=== PATIENT | male | born 1955 | race African-American/Black ===

== ENCOUNTER 2016-12-26 09:44 | Inpatient (IN) | payer OTHER ==
[~2016-12-26] VITALS: Ht 177.8 cm; Wt 118.1 kg
[~2016-12-26 09:44] MED LIST: CYCL5TAB PO; HYDR-3533 PO; carvedilol; lasix; potassium
[2016-12-26 09:45] VITALS: BP 128/87; PULSE 104; RESP 15; TEMP 97.8; O2SAT 97
[2016-12-26] MEDS ORDERED: SODIUM CHLORIDE 0.9% FLUSH 5 ML FLUSH IVF PRN ×2 (10:15→11:45)
[2016-12-26 10:44] LABS: AUTOMATED NEUTROPHIL # 5.7 TH/MM3 (1.8-7.7); BASOPHIL # 0.1 TH/MM3 (0-0.2); EOSINOPHIL # 0.2 TH/MM3 (0-0.4); HEMATOCRIT 39.1 % (39.0-51.0); HEMO FLAGS DIFF FINAL; LYMPH % 15.9 % (9.0-44.0); LYMPHOCYTE # 1.2 TH/MM3 (1.0-4.8); MEAN CELL VOLUME 90.6 FL (80.0-100.0); MEAN CORPUSCULAR HEMOGLOBIN 30.7 PG (27.0-34.0); MEAN CORPUSCULAR HGB CONC 33.9 % (32.0-36.0); MONO % 7.3 % (0.0-8.0); NEUT % 72.8 % (16.0-70.0); PLATELET COUNT 148 TH/MM3 (150-450); RED BLOOD COUNT 4.31 MIL/MM3 (4.50-5.90); RED CELL DISTRIBUTION WIDTH 12.8 % (11.6-17.2); WHITE BLOOD COUNT 7.8 TH/MM3 (4.0-11.0)
[2016-12-26 10:54] LABS: APTT (PATIENT) 26.7 SEC (24.3-30.1); PROTHROMBIN TIME - PATIENT 11.4 SEC (9.8-11.6)
[2016-12-26 10:57] LABS: BICARBONATE 30.4 MEQ/L (21.0-32.0); POTASSIUM 4.4 MEQ/L (3.5-5.1)
[2016-12-26] MEDS ORDERED: ENOXAPARIN SODIUM 80 MG/0.8 ML SYRINGE SQ ONE (11:00)
--- NOTE | 2016-12-26 11:00 | PD ---
HPI Chief Complaint: Musculoskeletal Complaint Time Seen by Provider: 10:00 Travel History International Travel<30 days: No Contact w/Intl Traveler<30days: No Traveled to known affect area: No History of Present Illness HPI Patient is a 61-year-old male with history of hypertension and chronic venous stasis who presents the emergency department from the OR for DVT. Patient states that over the course the last 2-3 weeks he has had increasing swelling from his baseline in the left lower extremity. He also notes pain primarily in the calf. Patient was seen at the OR today where he had a duplex ultrasound of the left lower extremity. This showed a partial thrombosis from the mid superficial femoral to the posterior tibial vein. No evidence of Cannon cyst. Given the extent of the DVT patient was sent here for further evaluation. He is not currently anticoagulated and denies any known history of DVT or PE. No chest pain, shortness of breath. PFSH Past Medical History Hepatitis: Yes Hypertension: Yes Social History Alcohol Use: No Tobacco Use: No Substance Use: No Allergies-Medications (Allergen,Severity, Reaction): Coded Allergies: No Known Allergies (Unverified , 07/25/15) Reported Meds & Prescriptions Reported Meds & Active Scripts Active Lortab 5 mg/325 mg (Hydrocodone/Acetaminophen 5 mg/325 mg) 1 Tab 1 Tab PO Q6H PRN Flexeril (Cyclobenzaprine HCl) 5 Mg Tab 5 Mg PO TID PRN Do not drive while on medication. Do not take with alcohol. Reported [potassium] [lasix] [carvedilol] Review of Systems Except as stated in HPI: all other systems reviewed are Neg Physical Exam Narrative GENERAL: Pleasant male in no acute distress SKIN: Warm and dry. HEAD: Normocephalic. EYES: No scleral icterus. No injection or drainage. ENT: Mucous membranes pink and moist. NECK: Supple CARDIOVASCULAR: Regular rate and rhythm. RESPIRATORY: No accessory muscle use. MUSCULOSKELETAL: Bilateral lower extremity with chronic venous stasis changes. Left lower extremity with 2-3+ edema versus 1-2+ edema in the right lower extremity. No palpable cords. Patient has tenderness to palpation of the left calf. No palpable fullness in the popliteal fossa. 5 out of 5 strength. Distal pulses intact. NEUROLOGICAL: Awake and alert. Normal speech. PSYCHIATRIC: Appropriate mood and affect; insight and judgment normal. Data Data Last Documented VS Vital Signs Date Time Temp Pulse Resp B/P Pulse Ox O2 Delivery O2 Flow Rate FiO2 12/26/16 09:45 97.8 104 15 128/87 97 Orders Basic Metabolic Panel (Bmp) (12/26/16 10:06) Complete Blood Count With Diff (12/26/16 10:06) Prothrombin Time / Inr (Pt) (12/26/16 10:06) Act Partial Throm Time (Ptt) (12/26/16 10:06) Ecg Monitoring (12/26/16 10:06) Iv Access Insert/Monitor (12/26/16 10:06) Oximetry (12/26/16 10:06) Sodium Chloride 0.9% Flush (Ns Flush) (12/26/16 10:15) Labs Laboratory Tests Test 12/26/16 10:30 White Blood Count 7.8 TH/MM3 Red Blood Count 4.31 MIL/MM3 Hemoglobin 13.2 GM/DL Hematocrit 39.1 % Mean Corpuscular Volume 90.6 FL Mean Corpuscular Hemoglobin 30.7 PG Mean Corpuscular Hemoglobin 33.9 % Concent Red Cell Distribution Width 12.8 % Platelet Count 148 TH/MM3 Mean Platelet Volume 8.6 FL Neutrophils (%) (Auto) 72.8 % Lymphocytes (%) (Auto) 15.9 % Monocytes (%) (Auto) 7.3 % Eosinophils (%) (Auto) 3.0 % Basophils (%) (Auto) 1.0 % Neutrophils # (Auto) 5.7 TH/MM3 Lymphocytes # (Auto) 1.2 TH/MM3 Monocytes # (Auto) 0.6 TH/MM3 Eosinophils # (Auto) 0.2 TH/MM3 Basophils # (Auto) 0.1 TH/MM3 CBC Comment DIFF FINAL Differential Comment Prothrombin Time 11.4 SEC Prothromb Time International 1.0 RATIO Ratio Activated Partial 26.7 SEC Thromboplast Time MDM Medical Decision Making Medical Screen Exam Complete: Yes Emergency Medical Condition: Yes Medical Record Reviewed: Yes Differential Diagnosis 61-year-old male with history of HTN, venous stasis here with complaint of several weeks of left lower extremity swelling and pain, increased from baseline. Differential includes DVT, cellulitis, venous stasis, CHF. Narrative Course Outside records reviewed. Patient had a duplex ultrasound 12/26/16 at 7:30 AM. Again the should partial thrombosis from the mid superficial femoral to the posterior tibial vein. Given the extent of patient's DVT he is not an appropriate candidate for outpatient management. CBC, BMP, coags were obtained and unremarkable. Patient was placed on Lovenox and will be admitted for further management. Diagnosis Primary Impression: DVT (deep venous thrombosis) Qualified Code: I82.412 - Acute deep vein thrombosis (DVT) of femoral vein of left lower extremity Admitting Information Admitting Physician Requests: Admit Maureen Carrion MD Dec 26, 2016 11:00
[2016-12-26 11:05] VITALS: BP 139/95; PULSE 97; RESP 19; TEMP 98.4; O2SAT 97
--- NOTE | 2016-12-26 11:29 | HHI.HP ---
[facility] Service Family Medicine Primary Care Physician [facility] Admission Diagnosis DVT Diagnoses: Chief Complaint: leg swelling International Travel<30 Days: No Contact w/Intl Traveler<30days: No Known Affected Area: No History of Present Illness 61 y/o -[place] male presents with swelling and pain in his left leg. Has history of chronic stasis that has been going on for several years. States his swelling/pain has worsened in the last few months. Went to [place] this morning for an appointment where an ultrasound was performed that found a thrombosis from mid superficial femoral to posterior tibial vein. No pain on right side. Endorses occasional numbness/tingling. No history of DVT in the past, hasn't been on blood thinners in the past. Denies chest pain, SOB, abdominal pain. ( Darien Luna MD R1) Review of Systems Constitutional: DENIES: Fever, Weight gain, Weight loss, Chills Eyes: DENIES: Blurred vision, Vision loss Ears, nose, mouth, throat: DENIES: Tinnitus, Hearing loss, Nasal discharge, Odynophagia Respiratory: DENIES: Cough, Shortness of breath Cardiovascular: COMPLAINS OF: Lower Extremity Edema, Claudication, DENIES: Chest pain, Palpitations Gastrointestinal: COMPLAINS OF: Constipation, DENIES: Abdominal pain, Diarrhea , Nausea, Vomiting Genitourinary: DENIES: Urinary frequency, Hematuria, Dysuria Musculoskeletal: COMPLAINS OF: Joint pain, Muscle aches Integumentary: DENIES: Abnormal pigmentation Hematologic/lymphatic: DENIES: Bruising, Lymphadenopathy Neurologic: DENIES: Abnormal gait, Headache (Darien Luna MD R1) Past Family Social History Past Medical History HTN Left shoulder arthritis Past Surgical History surgery on left neck Abdominal hernia repair rotator cuff repair right shoulder Reported Medications Reported Meds & Active Scripts Active Lortab 5 mg/325 mg (Hydrocodone/Acetaminophen 5 mg/325 mg) 1 Tab 1 Tab PO Q6H PRN Flexeril (Cyclobenzaprine HCl) 5 Mg Tab 5 Mg PO TID PRN Do not drive while on medication. Do not take with alcohol. Reported Lisinopril 20 Mg Tab 20 Mg PO DAILY Spironolactone 25 Mg Tab 25 Mg PO DAILY Carvedilol 12.5. 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 SKIN: Warm and dry HEAD: Atraumatic. Normocephalic. No temporal or scalp tenderness. EYES: Pupils equal round and reactive. Extraocular motions intact. No scleral icterus. No injection or drainage. ENT: Nose without bleeding, purulent drainage or septal hematoma. Throat without erythema, tonsillar hypertrophy or exudate. Uvula midline. Airway patent. NECK: Trachea midline. No JVD or lymphadenopathy. Supple, nontender, no meningeal signs. CARDIOVASCULAR: Regular rate and rhythm without murmurs, gallops, or rubs. RESPIRATORY: Clear to auscultation. Breath sounds equal bilaterally. No wheezes , rales, or rhonchi. GASTROINTESTINAL: Abdomen soft, non-tender, nondistended. No hepato-splenomegaly , or palpable masses. No guarding. MUSCULOSKELETAL:B/l lower extremities with venous stasis changes. left lower extremity with 2+ edema. Right lower extremity 1+ edema. Distal pulses intact. NEUROLOGICAL: Awake and alert. Cranial nerves II through XII intact. Motor and sensory grossly within normal limits. Five out of 5 muscle strength in all muscle groups. Normal speech. Laboratory Laboratory Tests Test 12/26/16 10:30 White Blood Count 7.8 Red Blood Count 4.31 Hemoglobin 13.2 Hematocrit 39.1 Mean Corpuscular Volume 90.6 Mean Corpuscular Hemoglobin 30.7 Mean Corpuscular Hemoglobin 33.9 Concent Red Cell Distribution Width 12.8 Platelet Count 148 Mean Platelet Volume 8.6 Neutrophils (%) (Auto) 72.8 Lymphocytes (%) (Auto) 15.9 Monocytes (%) (Auto) 7.3 Eosinophils (%) (Auto) 3.0 Basophils (%) (Auto) 1.0 Neutrophils # (Auto) 5.7 Lymphocytes # (Auto) 1.2 Monocytes # (Auto) 0.6 Eosinophils # (Auto) 0.2 Basophils # (Auto) 0.1 CBC Comment DIFF FINAL Differential Comment Prothrombin Time 11.4 Prothromb Time International 1.0 Ratio Activated Partial 26.7 Thromboplast Time Sodium Level 139 Potassium Level 4.4 Chloride Level 104 Carbon Dioxide Level 30.4 Anion Gap 5 Blood Urea Nitrogen 23 Creatinine 1.29 Estimat Glomerular Filtration 68 Rate Random Glucose 123 Calcium Level 9.2 (Darien Luna MD R1) Result Diagram: 12/26/16 1030 12/26/16 1030 Assessment and Plan Assessment and Plan 61 y/o male with history of chronic venous stasis presents after finding thrombosis on ultrasound. Will admit for IV lovenox and bridging to oral anticoagulants. Code Status Full Discussed Condition With Dr. Lin wdw Dr. Patrick (Darien Luna MD R1) Attending Attestation THIS CASE WAS DISCUSSED WITH THE RESIDENT PHYSICIANS. I HAVE REVIEWED THE RECORD AND AGREE WITH THE ABOVE NOTE AND PLAN OF CARE WAS DISCUSSED. I HAVE AUTHORIZED THE ORDER FOR ADMISSION TO AN IN-PATIENT STATUS. (Tahir Patrick MD) Problem List: (1) DVT (deep venous thrombosis) Status: Acute Plan: DVT from ultrasound at [place], showing partial thrombosis from mid superficial femoral to posterior tibial vein. History of chronic venous stasis No history of DVT in the past INR: 1.0 Plan - Therapeutic lovenox 80mg SQ q12H - Start warfarin 5mg daily - PT/INR in AM - Elevate leg - Tylenol pain 1-5 - [place] q4H pain 6-10 - Morphine breakthrough pain (2) Venous stasis of both lower extremities Status: Acute Plan: History of chronic venous stasis See plan for above (3) HTN (hypertension) Status: Acute Plan: BP 128/87 on admission Continue home meds - Coreg 6.25 BID - Lisinopril 20mg daily - Spironolactone 25mg daily - Lasix 40mg BID w/ KCl 20 q12H (4) FEN Status: Acute Plan: Fluids: none, tolerating PO Electrolytes: wnl. continue to monit Nutrition: regular diet DVT ppx: therapeutic lovenox (Darien Luna MD R1) Physician Certification 2 Midnight Certification Type: Admission for Inpatient Services Order for Inpatient Services The services are ordered in accordance with Medicare regulations or non- Medicare payer requirements, as applicable. In the case of services not specified as inpatient-only, they are appropriately provided as inpatient services in accordance with the 2-midnight benchmark. Estimated LOS (days): 3 days is the estimated time the patient will need to remain in the hospital, assuming treatment plan goals are met and no additional complications. Post-Hospital Plan: Home (Darien Luna MD R1) Problem Qualifiers (1) DVT (deep venous thrombosis): Qualified Code: I82.412 - Acute deep vein thrombosis (DVT) of femoral vein of left lower extremity (2) HTN (hypertension): Qualified Code: I10 - Essential hypertension Darien Luna MD R1 Dec 26, 2016 11:29 Tahir Patrick MD Dec 26, 2016 19:40
[2016-12-26] MEDS ORDERED: ONDANSETRON HCL 4 MG/2 ML VIAL IV PRN (11:45)
[2016-12-26] MEDS ORDERED: ACETAMINOPHEN/HYDROcodone 325 MG/5 MG TAB PO PRN (11:45)
[2016-12-26] MEDS ORDERED: ACETAMINOPHEN 325 MG TAB PO PRN (11:45)
[2016-12-26] MEDS ORDERED: MORPHINE SULFATE 4 MG/ML INJ IV PRN (11:45)
[2016-12-26] MEDS ORDERED: SPIR25TA PO (13:01)
[2016-12-26] MEDS ORDERED: LISI-515 PO (13:02)
[2016-12-26 13:06] VITALS: BP 137/82; PULSE 97; RESP 19; O2SAT 97
[2016-12-26 14:42] VITALS: BP 150/83; PULSE 112; RESP 18; TEMP 96.4; O2SAT 95
[2016-12-26] MEDS: WARFARIN SOD 5 MG TAB PO SCH (15:40)
[2016-12-26] MEDS ORDERED: ENALAPRILAT 1.25 MG/ML VIAL IV PRN (16:45)
[2016-12-26] MEDS: FUROSEMIDE 40 MG TAB PO SCH (17:03)
[2016-12-26 18:28] VITALS: O2SAT 95
[2016-12-26 20:05] VITALS: BP 139/79; PULSE 108; RESP 16; TEMP 96.3; O2SAT 98
[2016-12-26] MEDS: CARVEDILOL 6.25 MG TAB PO SCH (22:26)
[2016-12-26] MEDS: ENOXAPARIN SODIUM 100 MG/ML SYRINGE SQ SCH (22:26)
[2016-12-26] MEDS: POTASSIUM CHLORIDE 20 MEQ CONTROLLED RELEASE TAB PO SCH (22:26)
[2016-12-26] MEDS: SODIUM CHLORIDE 0.9% FLUSH 5 ML FLUSH IVF SCH (22:27)
[2016-12-27] VITALS (7 sets, daily range): BP systolic 102–152; BP diastolic 64–90; PULSE 80–108; RESP 16–18; TEMP 96.8–98; O2SAT 97–100
[2016-12-27 06:08] LABS: AUTOMATED NEUTROPHIL # 4.8 TH/MM3 (1.8-7.7); BASOPHIL # 0.1 TH/MM3 (0-0.2); BASOPHIL % 0.7 % (0.0-2.0); EOSINOPHIL # 0.2 TH/MM3 (0-0.4); EOSINOPHIL % 3.1 % (0.0-4.0); HEMO FLAGS DIFF FINAL; LYMPH % 25.1 % (9.0-44.0); LYMPHOCYTE # 1.8 TH/MM3 (1.0-4.8); MEAN CELL VOLUME 90.3 FL (80.0-100.0); MEAN CORPUSCULAR HEMOGLOBIN 31.4 PG (27.0-34.0); MEAN CORPUSCULAR HGB CONC 34.8 % (32.0-36.0); MONO % 6.3 % (0.0-8.0); NEUT % 64.8 % (16.0-70.0); PLATELET COUNT 153 TH/MM3 (150-450); RED BLOOD COUNT 3.99 MIL/MM3 (4.50-5.90); RED CELL DISTRIBUTION WIDTH 12.6 % (11.6-17.2); WHITE BLOOD COUNT 7.4 TH/MM3 (4.0-11.0)
[2016-12-27 06:18] LABS: PROTHROMBIN TIME - PATIENT 11.6 SEC (9.8-11.6)
[2016-12-27 06:30] LABS: BICARBONATE 27.2 MEQ/L (21.0-32.0); POTASSIUM 3.7 MEQ/L (3.5-5.1)
--- NOTE | 2016-12-27 08:55 | HHI.FPPN ---
Subjective Remarks FM Attending Note: Patient seen and examined. S: Chart and all resident physician notes reviewed. In summary this is a 61 year old male who was admitted with an admission diagnosis of DVT. No previous history of VTE. This patient has a history of chronic venous insufficiency of his lower extremities with chronic edema that is been slightly more in the left side than the right. [facility] in [place]. He reports that he is given prescriptions at the [facility] and fills these at his pharmacy. No chest pain or shortness of breath has been noted. No history of any bleeding disorder or clotting disorders. Objective Vitals Vital Signs Date Time Temp Pulse Resp B/P Pulse Ox O2 Delivery O2 Flow Rate FiO2 12/27/16 08:00 97.5 80 17 124/77 99 12/27/16 04:00 97.0 85 16 115/71 97 12/27/16 00:00 96.8 108 18 145/90 98 12/26/16 20:05 96.3 108 16 139/79 98 12/26/16 18:28 95 21 12/26/16 14:42 96.4 112 18 150/83 95 12/26/16 13:06 97 19 137/82 97 Room Air 12/26/16 11:05 98.4 97 19 139/95 97 Room Air 12/26/16 09:45 97.8 104 15 128/87 97 I/O 12/26/16 12/26/16 12/26/16 12/27/16 12/27/16 12/27/16 07:00 15:00 23:00 07:00 15:00 23:00 Intake Total 480 ml 240 ml Balance 480 ml 240 ml Intake Oral 480 ml 240 ml # Voids 1 3 2 # Bowel Movements 0 0 Result Diagram: 12/27/16 0537 12/27/16 0537 Other Results Item Value Date Time Prothrombin Time 11.4 SEC 12/26/16 1030 Prothromb Time International Ratio 1.0 RATIO 12/26/16 1030 Activated Partial Thromboplast Time 26.7 SEC 12/26/16 1030 Imaging Venous ultrasound done at the [facility] reportedly showed a DVT in his left leg. Objective Remarks O. CONSTITUTIONAL/GEN: normally nourished, in NAD. EYES: conjunctiva normal, PERRLA, EOMI. LUNGS: clear A-P, respiratory effort is normal. CARDIOVASCULAR: RR without murmur or gallop. 1-2+ edema of the left lower extremity, trace to 1+ edema of the right lower extremity GI/ABD: soft without masses, without organomegaly. NEURO: No focal deficits. SKIN: color normal, no rashes noted other than some very mild venous stasis changes of the lower extremities. HEME/LYMPH: no bruising or petechia. MUSC: back is normal in appearance. Extremities are normal in appearance other than edema in stasis dermatitis noted. PSYCH/MENTAL STATUS: Alert and oriented x 3. A/P Assessment and Plan 61 y/o male with history of chronic venous stasis presents after finding thrombosis on ultrasound. Will admit for IV lovenox and bridging to oral anticoagulants. Problem List: (1) DVT (deep venous thrombosis) Status: Acute Plan: DVT from ultrasound at [place], showing partial thrombosis from mid superficial femoral to posterior tibial vein. History of chronic venous stasis No history of DVT in the past INR: 1.0 Plan - Therapeutic lovenox 80mg SQ q12H - Start warfarin 5mg daily - PT/INR in AM - Elevate leg - Tylenol pain 1-5 - [place] q4H pain 6-10 - Morphine breakthrough pain 12/27/16. This patient has a DVT of his left lower extremity. Other than his chronic venous insufficiency and edema this appears to be unprovoked. He will need to have anticoagulation for at least 6 months. We discussed the availability of several to with the sample case porter but would only be able to get a 5 day supply and the cost otherwise is prohibitive. For now the patient is being bridged from Lovenox to Coumadin. We'll continue the same with the possibility of bridging him with the short supply of Xarelto once he is closer to being at a therapeutic level with his INR and if timely follow-up can be arranged through the [facility]. (2) Venous stasis of both lower extremities Status: Acute Plan: History of chronic venous stasis See plan for above (3) HTN (hypertension) Status: Acute Plan: BP 128/87 on admission Continue home meds - Coreg 6.25 BID - Lisinopril 20mg daily - Spironolactone 25mg daily - Lasix 40mg BID w/ KCl 20 q12H (4) FEN Status: Acute Plan: Fluids: none, tolerating PO Electrolytes: wnl. continue to monit Nutrition: regular diet DVT ppx: therapeutic lovenox Problem Qualifiers (1) DVT (deep venous thrombosis): Qualified Code: I82.412 - Acute deep vein thrombosis (DVT) of femoral vein of left lower extremity (2) HTN (hypertension): Qualified Code: I10 - Essential hypertension Tahir Patrick MD Dec 27, 2016 08:55
[2016-12-27] MEDS: SPIRONOLACTONE 25 MG TAB PO SCH (09:00)
[2016-12-27] MEDS: POTASSIUM CHLORIDE 20 MEQ CONTROLLED RELEASE TAB PO SCH ×2 (09:00→21:04)
[2016-12-27] MEDS: LISINOPRIL 20 MG TAB PO SCH (09:36)
[2016-12-27] MEDS: CARVEDILOL 6.25 MG TAB PO SCH ×2 (09:36→21:04)
[2016-12-27] MEDS: FUROSEMIDE 40 MG TAB PO SCH ×2 (09:36→16:57)
[2016-12-27] MEDS: SODIUM CHLORIDE 0.9% FLUSH 5 ML FLUSH IVF SCH ×2 (09:37→21:04)
[2016-12-27] MEDS: ENOXAPARIN SODIUM 100 MG/ML SYRINGE SQ SCH ×2 (10:29→22:34)
[2016-12-27] MEDS: WARFARIN SOD 5 MG TAB PO SCH (14:59)
[2016-12-27] MEDS ORDERED: WARFARIN SOD 5 MG TAB PO ONE (16:00)
[2016-12-28 00:08] VITALS: BP 127/71; PULSE 86; RESP 17; TEMP 97.1; O2SAT 98
[2016-12-28 07:39] LABS: INTERNATIONAL NORMALIZED RATIO 1.1 RATIO; PROTHROMBIN TIME - PATIENT 11.8 SEC (9.8-11.6)
[2016-12-28 07:42] LABS: HEMATOCRIT 38.7 % (39.0-51.0); MEAN CELL VOLUME 90.4 FL (80.0-100.0); MEAN CORPUSCULAR HGB CONC 34.3 % (32.0-36.0); PLATELET COUNT 169 TH/MM3 (150-450); RED BLOOD COUNT 4.29 MIL/MM3 (4.50-5.90); RED CELL DISTRIBUTION WIDTH 12.8 % (11.6-17.2); REVIEW FLAG FINAL; WHITE BLOOD COUNT 7.9 TH/MM3 (4.0-11.0)
[2016-12-28 08:00] VITALS: BP 132/83; PULSE 90; RESP 18; TEMP 96; O2SAT 98
[2016-12-28 08:04] LABS: BICARBONATE 29.2 MEQ/L (21.0-32.0)
[2016-12-28] MEDS: SODIUM CHLORIDE 0.9% FLUSH 5 ML FLUSH IVF SCH ×2 (08:58→21:26)
[2016-12-28] MEDS: FUROSEMIDE 40 MG TAB PO SCH ×2 (08:59→17:56)
[2016-12-28] MEDS: LISINOPRIL 20 MG TAB PO SCH (08:59)
[2016-12-28] MEDS: CARVEDILOL 6.25 MG TAB PO SCH ×2 (08:59→21:20)
[2016-12-28] MEDS: SPIRONOLACTONE 25 MG TAB PO SCH (08:59)
[2016-12-28] MEDS: POTASSIUM CHLORIDE 20 MEQ CONTROLLED RELEASE TAB PO SCH ×2 (08:59→21:20)
--- NOTE | 2016-12-28 10:09 | HHI.FPPN ---
Subjective Remarks Patient seen and examined this morning. No acute events overnight. Denies any complaints/concerns. Denies chest pain, SOB, abdominal pain. Is keeping left leg elevated, while sitting in chair. Has been up walking around without difficulty. (Darien Luna MD R1) Objective Vitals Vital Signs Date Time Temp Pulse Resp B/P Pulse Ox O2 Delivery O2 Flow Rate FiO2 12/28/16 08:00 96.0 90 18 132/83 98 12/28/16 00:08 97.1 86 17 127/71 98 12/27/16 19:00 98.0 98 16 152/77 98 12/27/16 16:00 97.1 86 17 117/81 100 12/27/16 12:00 96.8 89 17 135/74 97 I/O 12/27/16 12/27/16 12/27/16 12/28/16 12/28/16 12/28/16 07:00 15:00 23:00 07:00 15:00 23:00 Intake Total 240 ml 480 ml 480 ml 240 ml Balance 240 ml 480 ml 480 ml 240 ml Intake Oral 240 ml 480 ml 480 ml 240 ml # Voids 2 3 3 2 # Bowel Movements 0 0 0 0 (Darien Luna MD R1) Result Diagram: 12/28/16 0709 12/28/16 0709 Objective Remarks O. CONSTITUTIONAL/GEN: normally nourished, in NAD. EYES: conjunctiva normal, PERRLA, EOMI. LUNGS: clear A-P, respiratory effort is normal. CARDIOVASCULAR: RR without murmur or gallop. 1-2+ edema of the left lower extremity, trace to 1+ edema of the right lower extremity GI/ABD: soft without masses, without organomegaly. NEURO: No focal deficits. SKIN: color normal, no rashes noted other than some very mild venous stasis changes of the lower extremities. HEME/LYMPH: no bruising or petechia. MUSC: back is normal in appearance. Extremities are normal in appearance other than edema in stasis dermatitis noted. PSYCH/MENTAL STATUS: Alert and oriented x 3. (Darien Luna MD R1) A/P Assessment and Plan 61 y/o male with history of chronic venous stasis presents after finding thrombosis on ultrasound. On IV lovenox and bridging with warfarin Discharge Planning When INR is in therapeutic range (Darien Luna MD R1) Attending Attestation Patient seen and examined. Case reviewed and discussed with the resident team. Agree with plan of care as discussed with me and documented in the resident note. (Tahir Patrick MD) Problem List: (1) DVT (deep venous thrombosis) Status: Acute Plan: DVT from ultrasound at [place], showing partial thrombosis from mid superficial femoral to posterior tibial vein. History of chronic venous stasis No history of DVT in the past INR: 1.1 today Will need anticoagulation for at least 6 months Plan - Therapeutic lovenox 80mg SQ q12H - Increase warfarin to 6.5mg daily - PT/INR daily - Elevate leg - Tylenol pain 1-5 - [place] q4H pain 6-10 - Morphine breakthrough pain (2) Venous stasis of both lower extremities Status: Acute Plan: History of chronic venous stasis See plan for above (3) HTN (hypertension) Status: Acute Plan: BP 128/87 on admission Continue home meds - Coreg 6.25 BID - Lisinopril 20mg daily (4) CHF (congestive heart failure) Status: Acute Plan: Continue home meds BNP 10 - Spironolactone 25mg daily - Lasix 40mg BID w/ KCl 20 q12H (5) FEN Status: Acute Plan: Fluids: none, tolerating PO Electrolytes: wnl. continue to monit Nutrition: regular diet DVT ppx: therapeutic lovenox (Darien Luna MD R1) Problem Qualifiers (1) DVT (deep venous thrombosis): Qualified Code: I82.412 - Acute deep vein thrombosis (DVT) of femoral vein of left lower extremity (2) HTN (hypertension): Qualified Code: I10 - Essential hypertension (3) CHF (congestive heart failure): Qualified Code: I50.9 - Chronic congestive heart failure, unspecified congestive heart failure type Darien Luna MD R1 Dec 28, 2016 10:09 Tahir Patrick MD Dec 28, 2016 16:17
[2016-12-28] MEDS: ENOXAPARIN SODIUM 100 MG/ML SYRINGE SQ SCH ×2 (11:08→23:06)
[2016-12-28 11:42] VITALS: BP 118/61; PULSE 88; RESP 18; TEMP 96.6; O2SAT 99
[2016-12-28 15:30] VITALS: BP 124/80; PULSE 88; RESP 18; TEMP 96.8; O2SAT 99
[2016-12-28] MEDS: WARFARIN SOD 2.5 MG TAB PO SCH (15:41)
[2016-12-28] MEDS: WARFARIN SOD 5 MG TAB PO SCH (15:41)
[2016-12-28] MEDS ORDERED: WARFARIN SOD 4 MG TAB PO SCH (16:00)
[2016-12-28 19:17] VITALS: BP 117/79; PULSE 93; RESP 18; TEMP 97.5; O2SAT 100
[2016-12-28] MEDS: DOCUSATE SODIUM 100 MG CAP PO PRN (21:20)
[2016-12-28 23:20] VITALS: BP 117/76; PULSE 87; RESP 17; TEMP 97; O2SAT 98
[2016-12-29] VITALS (7 sets, daily range): BP systolic 100–143; BP diastolic 62–85; PULSE 83–98; RESP 16–18; TEMP 96.4–98; O2SAT 97–99
[2016-12-29 05:18] LABS: INTERNATIONAL NORMALIZED RATIO 1.2 RATIO; PROTHROMBIN TIME - PATIENT 13.1 SEC (9.8-11.6)
--- NOTE | 2016-12-29 08:24 | HHI.FPPN ---
Subjective Remarks Patient seen and examined this morning. Denies any complaints/concerns. Is up moving around. Is wondering about when he can go home. State swelling in his left leg has gone down a bit. Denies any fever/chills, n/v, chest pain, SOB, abdominal pain, leg pain. (Darien Luna MD R1) Objective Vitals Vital Signs Date Time Temp Pulse Resp B/P Pulse Ox O2 Delivery O2 Flow Rate FiO2 12/29/16 03:30 98.0 89 17 143/85 99 12/28/16 23:20 97.0 87 17 117/76 98 12/28/16 19:17 97.5 93 18 117/79 100 12/28/16 15:30 96.8 88 18 124/80 99 12/28/16 11:42 96.6 88 18 118/61 99 I/O 12/28/16 12/28/16 12/28/16 12/29/16 12/29/16 12/29/16 07:00 15:00 23:00 07:00 15:00 23:00 Intake Total 240 ml 960 ml 960 ml 480 ml Balance 240 ml 960 ml 960 ml 480 ml Intake Oral 240 ml 960 ml 960 ml 480 ml # Voids 2 3 3 2 # Bowel Movements 0 0 0 0 (Darien Luna MD R1) Result Diagram: 12/28/16 0709 12/28/16 0709 Objective Remarks O. CONSTITUTIONAL/GEN: normally nourished, in NAD. EYES: conjunctiva normal, PERRLA, EOMI. LUNGS: clear A-P, respiratory effort is normal. CARDIOVASCULAR: RR without murmur or gallop. 1-2+ edema of the left lower extremity, improving; trace to 1+ edema of the right lower extremity GI/ABD: soft without masses, without organomegaly. NEURO: No focal deficits. SKIN: color normal, no rashes noted other than some very mild venous stasis changes of the lower extremities. PSYCH/MENTAL STATUS: Alert and oriented x 3. (Darien Luna MD R1) A/P Assessment and Plan 61 y/o male with history of chronic venous stasis presents after finding thrombosis on ultrasound. On IV lovenox and bridging with warfarin Discharge Planning When INR is in therapeutic range (Darien Luna MD R1) Attending Attestation Case reviewed and discussed with the resident team. Agree with plan of care as discussed with me and documented in the resident note. (Tahir Patrick MD) Problem List: (1) DVT (deep venous thrombosis) Status: Acute Plan: DVT from ultrasound at [place], showing partial thrombosis from mid superficial femoral to posterior tibial vein. History of chronic venous stasis No history of DVT in the past INR: 1.2 today Will need anticoagulation for at least 6 months Plan - Therapeutic lovenox 80mg SQ q12H - On warfarin 7.5mg daily - PT/INR daily - Elevate leg - Tylenol pain 1-5 - [place] q4H pain 6-10 - Morphine breakthrough pain (2) Venous stasis of both lower extremities Status: Acute Plan: History of chronic venous stasis See plan for above (3) HTN (hypertension) Status: Acute Plan: BP 128/87 on admission Continue home meds - Coreg 6.25 BID - Lisinopril 20mg daily (4) CHF (congestive heart failure) Status: Acute Plan: Continue home meds BNP 10 - Spironolactone 25mg daily - Lasix 40mg BID w/ KCl 20 q12H (5) FEN Status: Acute Plan: Fluids: none, tolerating PO Electrolytes: wnl. continue to monit Nutrition: regular diet DVT ppx: therapeutic lovenox (Darien Luna MD R1) Problem Qualifiers (1) DVT (deep venous thrombosis): Qualified Code: I82.412 - Acute deep vein thrombosis (DVT) of femoral vein of left lower extremity (2) HTN (hypertension): Qualified Code: I10 - Essential hypertension (3) CHF (congestive heart failure): Qualified Code: I50.9 - Chronic congestive heart failure, unspecified congestive heart failure type Darien Luna MD R1 Dec 29, 2016 08:24 Tahir Patrick MD Dec 30, 2016 09:26
[2016-12-29] MEDS: POTASSIUM CHLORIDE 20 MEQ CONTROLLED RELEASE TAB PO SCH ×2 (08:29→21:14)
[2016-12-29] MEDS: LISINOPRIL 20 MG TAB PO SCH (08:29)
[2016-12-29] MEDS: SPIRONOLACTONE 25 MG TAB PO SCH (08:29)
[2016-12-29] MEDS: SODIUM CHLORIDE 0.9% FLUSH 5 ML FLUSH IVF SCH ×2 (08:29→21:15)
[2016-12-29] MEDS: FUROSEMIDE 40 MG TAB PO SCH ×2 (08:29→18:51)
[2016-12-29] MEDS: CARVEDILOL 6.25 MG TAB PO SCH ×2 (08:29→21:14)
[2016-12-29] MEDS: ENOXAPARIN SODIUM 100 MG/ML SYRINGE SQ SCH ×2 (11:36→21:14)
[2016-12-29] MEDS ORDERED: WARFARIN SOD 2.5 MG TAB PO ONE (16:00)
[2016-12-29] MEDS: WARFARIN SOD 5 MG TAB PO SCH (16:39)
[2016-12-29] MEDS: WARFARIN SOD 2.5 MG TAB PO SCH (16:39)
[2016-12-29] MEDS: DOCUSATE SODIUM 100 MG CAP PO PRN (21:15)
[2016-12-30 04:20] VITALS: BP 120/65; PULSE 82; RESP 16; TEMP 96.2; O2SAT 98
[2016-12-30 05:59] LABS: INTERNATIONAL NORMALIZED RATIO 1.3 RATIO; PROTHROMBIN TIME - PATIENT 14.9 SEC (9.8-11.6)
[2016-12-30] MEDS ORDERED: WARFARIN SOD 2.5 MG TAB PO SCH (07:15)
--- NOTE | 2016-12-30 07:23 | HHI.FPPN ---
Subjective Remarks Patient seen and examined this morning. No acute events overnight. Denies any complaints/concerns this morning. Is wanting to go home and is willing to take the shots of lovenox to bridge him over. Denies any fever/chills, n/v, chest pain, SOB, abdominal pain, leg pain. (Darien Luna MD R1) Objective Vitals Vital Signs Date Time Temp Pulse Resp B/P Pulse Ox O2 Delivery O2 Flow Rate FiO2 12/30/16 04:20 96.2 82 16 120/65 98 12/29/16 23:10 96.4 89 17 100/62 97 12/29/16 21:12 98 12/29/16 20:25 97.7 88 16 131/81 98 12/29/16 16:00 96.5 91 18 121/67 98 12/29/16 12:00 97.2 86 18 124/77 99 12/29/16 08:00 96.6 83 18 124/77 98 I/O 12/29/16 12/29/16 12/29/16 12/30/16 12/30/16 12/30/16 07:00 15:00 23:00 07:00 15:00 23:00 Intake Total 480 ml 960 ml 600 ml Balance 480 ml 960 ml 600 ml Intake Oral 480 ml 960 ml 600 ml # Voids 2 5 3 # Bowel Movements 0 0 0 (Darien Luna MD R1) Result Diagram: 12/28/16 0709 12/28/16 0709 Objective Remarks O. CONSTITUTIONAL/GEN: normally nourished, in NAD, laying comfortably in bed EYES: conjunctiva normal, PERRLA, EOMI. LUNGS: clear A-P, respiratory effort is normal. CARDIOVASCULAR: RR without murmur or gallop. 1+ edema of the left lower extremity, improving; trace to 1+ edema of the right lower extremity; venous stasis dermatitis changes present bilaterally GI/ABD: soft without masses, without organomegaly. NEURO: No focal deficits. SKIN: color normal, no rashes noted other than some very mild venous stasis changes of the lower extremities. PSYCH/MENTAL STATUS: Alert and oriented x 3. (Darien Luna MD R1) A/P Assessment and Plan 61 y/o male with history of chronic venous stasis presents after finding thrombosis on ultrasound. On IV lovenox and bridging with warfarin Discharge Planning When INR is in therapeutic range, may send home with lovenox bridge and outpatient INR (Darien Luna MD R1) Attending Attestation Patient seen and examined. Case reviewed and discussed with the resident team. Agree with plan of care as discussed with me and documented in the resident note. (Tahir Patrick MD) Problem List: (1) DVT (deep venous thrombosis) Status: Acute Plan: DVT from ultrasound at [facility], showing partial thrombosis from mid superficial femoral to posterior tibial vein. History of chronic venous stasis No history of DVT in the past INR: 1.3 today Will need anticoagulation for at least 6 months Plan - Therapeutic lovenox 80mg SQ q12H - Increase warfarin to 10mg daily - PT/INR daily - Elevate leg - Tylenol pain 1-5 - [place] q4H pain 6-10 - Morphine breakthrough pain (2) Venous stasis of both lower extremities Status: Acute Plan: History of chronic venous stasis See plan for above (3) HTN (hypertension) Status: Acute Plan: BP 128/87 on admission Continue home meds - Coreg 6.25 BID - Lisinopril 20mg daily (4) CHF (congestive heart failure) Status: Acute Plan: Continue home meds BNP 10 - Spironolactone 25mg daily - Lasix 40mg BID w/ KCl 20 q12H (5) FEN Status: Acute Plan: Fluids: none, tolerating PO Electrolytes: wnl. continue to monit Nutrition: regular diet DVT ppx: therapeutic lovenox (Darien Luna MD R1) Problem Qualifiers (1) DVT (deep venous thrombosis): Qualified Code: I82.412 - Acute deep vein thrombosis (DVT) of femoral vein of left lower extremity (2) HTN (hypertension): Qualified Code: I10 - Essential hypertension (3) CHF (congestive heart failure): Qualified Code: I50.9 - Chronic congestive heart failure, unspecified congestive heart failure type Darien Luna MD R1 Dec 30, 2016 07:23 Tahir Patrick MD Dec 30, 2016 14:58
[2016-12-30 08:00] VITALS: BP 144/88; PULSE 71; RESP 18; TEMP 96; O2SAT 99
[2016-12-30] MEDS: CARVEDILOL 6.25 MG TAB PO SCH (08:53)
[2016-12-30] MEDS: POTASSIUM CHLORIDE 20 MEQ CONTROLLED RELEASE TAB PO SCH (08:53)
[2016-12-30] MEDS: LISINOPRIL 20 MG TAB PO SCH (08:53)
[2016-12-30] MEDS: SPIRONOLACTONE 25 MG TAB PO SCH (08:53)
[2016-12-30] MEDS: SODIUM CHLORIDE 0.9% FLUSH 5 ML FLUSH IVF SCH (08:54)
[2016-12-30] MEDS: FUROSEMIDE 40 MG TAB PO SCH (08:54)
[2016-12-30] MEDS ORDERED: WARF-23 PO ×2 (10:28→12:23)
--- NOTE | 2016-12-30 10:29 | HHI.DCPOC ---
Discharge Care Plan Diagnosis: (1) Venous stasis of both lower extremities (2) HTN (hypertension) (3) DVT (deep venous thrombosis) (4) CHF (congestive heart failure) Goals to Promote Your Health * To prevent worsening of your condition and complications * To maintain your health at the optimal level Directions to Meet Your Goals Take your medications as prescribed Follow your dietary instruction Follow activity as directed Keep your appointments as scheduled Take your immunizations and boosters as scheduled If your symptoms worsen call your PCP, if no PCP go to Urgent Care Center or Emergency Room Smoking is Dangerous to Your Health. Avoid second hand smoke Call the 24-hour hour crisis hotline for domestic abuse at Darien Luna MD R1 Dec 30, 2016 10:29
[2016-12-30] MEDS ORDERED: XARE15TA PO (10:34)
--- NOTE | 2016-12-30 10:39 | HHI.DS ---
Discharge Summary Admission Date Dec 26, 2016 at 11:08 Discharge Date: Dec 30, 2016 Admitting Diagnosis DVT (1) DVT (deep venous thrombosis) Diagnosis: Principal Plan: DVT from ultrasound at [facility], showing partial thrombosis from mid superficial femoral to posterior tibial vein. History of chronic venous stasis No history of DVT in the past INR: 1.3 today Will need anticoagulation for at least 6 months Plan - Therapeutic lovenox 80mg SQ q12H - Increase warfarin to 10mg daily - PT/INR daily - Elevate leg - Tylenol pain 1-5 - [place] q4H pain 6-10 - Morphine breakthrough pain (2) Venous stasis of both lower extremities Diagnosis: Secondary Plan: History of chronic venous stasis See plan for above (3) HTN (hypertension) Diagnosis: Secondary Plan: BP 128/87 on admission Continue home meds - Coreg 6.25 BID - Lisinopril 20mg daily (4) CHF (congestive heart failure) Diagnosis: Secondary Plan: Continue home meds BNP 10 - Spironolactone 25mg daily - Lasix 40mg BID w/ KCl 20 q12H (5) FEN Diagnosis: Secondary Plan: Fluids: none, tolerating PO Electrolytes: wnl. continue to monit Nutrition: regular diet DVT ppx: therapeutic lovenox Brief History 61 y/o -[place] male presents with swelling and pain in his left leg. Has history of chronic stasis that has been going on for several years. States his swelling/pain has worsened in the last few months. Went to [place] this morning for an appointment where an ultrasound was performed that found a thrombosis from mid superficial femoral to posterior tibial vein. No pain on right side. Endorses occasional numbness/tingling. No history of DVT in the past, hasn't been on blood thinners in the past. Denies chest pain, SOB, abdominal pain. CBC/BMP: 12/28/16 0709 12/28/16 0709 Significant Findings Laboratory Tests Test 12/28/16 12/29/16 12/30/16 07:09 04:37 05:20 Red Blood Count 4.29 MIL/MM3 (4.50-5.90) Hematocrit 38.7 % (39.0-51.0) Prothrombin Time 11.8 SEC 13.1 SEC 14.9 SEC (9.8-11.6) (9.8-11.6) (9.8-11.6) Random Glucose 115 MG/DL (74-106) PE at Discharge O. CONSTITUTIONAL/GEN: normally nourished, in NAD, laying comfortably in bed EYES: conjunctiva normal, PERRLA, EOMI. LUNGS: clear A-P, respiratory effort is normal. CARDIOVASCULAR: RR without murmur or gallop. 1+ edema of the left lower extremity, improving; trace to 1+ edema of the right lower extremity; venous stasis dermatitis changes present bilaterally GI/ABD: soft without masses, without organomegaly. NEURO: No focal deficits. SKIN: color normal, no rashes noted other than some very mild venous stasis changes of the lower extremities. PSYCH/MENTAL STATUS: Alert and oriented x 3. Hospital Course 61 y/o male with history of HTN, chronic venous stasis presents after a DVT was found at the [facility]. He was sent to the ED from the [facility] and admitted for anticoagulation. He was started on therapeutic lovenox with bridging to warfarin. INR is increasing to 1.3. Case management was able to provide patient with 30 days of Xarelto. Patient will take xarelto to bridge with warfarin. Outpatient INR scheduled for Monday after discharge and warfarin dose will be adjusted accordingly. He will also have follow-up with [facility] for INR monitoring and further dosage adjustment. Pt Condition on Discharge: Stable Discharge Disposition: Discharge Home Discharge Instructions DIET: Follow Instructions for: Heart Healthy Diet Activities you can perform: Regular-No Restrictions Follow up Referrals: PCP Follow-up - 1 Week New Orders: PT/INR - 01/02/17 New Medications: Rivaroxaban (Xarelto) 15 Mg Tab 15 MG PO DAILY Blood Clot Prevention #30 Ref 0 TAB Warfarin (Warfarin) 5 Mg Tab 5 MG PO DAILY Take 1.5 pills 2/3-2/5. Then hold until informed by physician on dosage. Blood Clot Prevention #30 Ref 0 TAB Continued Medications: Cyclobenzaprine Hcl (Flexeril) 5 Mg Tab 5 MG PO TID Do not drive while on medication. Do not take with alcohol. PRN SPASM #12 TAB Hydrocodone/Acetaminophen 5 mg/325 mg (Lortab 5 mg/325 mg) 1 Tab 1 TAB PO Q6H PRN PAIN #7 TAB Lisinopril (Lisinopril) 20 Mg Tab 20 MG PO DAILY #30 Ref 0 TAB Spironolactone (Spironolactone) 25 Mg Tab 25 MG PO DAILY #30 Ref 0 TAB ([carvedilol]) ([lasix]) ([potassium]) Darien Luna MD R1 Dec 30, 2016 10:39
[2016-12-30 12:00] VITALS: BP 121/88; PULSE 93; RESP 18; TEMP 96.2; O2SAT 100
[2016-12-30 12:28] VITALS: PULSE 87
[2016-12-30] MEDS: ENOXAPARIN SODIUM 100 MG/ML SYRINGE SQ SCH (12:34)
[2016-12-30] MEDS ORDERED: WARFARIN SOD 10 MG TAB PO SCH (16:00)
== END 2016-12-30 12:48 | disposition home or self-care (01) | DRG 301 ==
LOC: NEPA 09:44 → NEDA 11:08 → N06A 13:42
PROVIDERS: ADMIT Family Medicine; ATTEND Family Medicine
DX: I82.412 Acute embolism and thrombosis of left femoral vein (principal); I82.432 Acute embolism and thrombosis of left popliteal vein; I50.9 Heart failure, unspecified; I10 Essential (primary) hypertension; I87.8 Other specified disorders of veins; Z86.19 Personal history of other infectious and parasitic diseases; M19.012 Primary osteoarthritis, left shoulder
CPT/HCPCS: 80048; 83880; 85025; 85027; 85610; 85730; 99284; J1650

== ENCOUNTER 2017-06-18 18:24 | Inpatient (IN) | payer OTHER ==
[~2017-06-18] VITALS: Ht 177.8 cm; Wt 115.6 kg
[2017-06-18] VITALS (11 sets, daily range): BP systolic 78–142; BP diastolic 50–89; PULSE 87–117; RESP 14–20; TEMP 97.7–98.5; O2SAT 95–100
[~2017-06-18 18:24] MED LIST changes: +LISI-515 PO; +SPIR25TA PO; +WARF-23 PO; +XARE15TA PO
[2017-06-18] MEDS ORDERED: SODIUM CHLOR 0.9% 1000 ML INJ 1,000 ML IV SCH ×3 (19:06→19:49)
[2017-06-18] MEDS ORDERED: WARF4TAB52 PO (19:08)
[2017-06-18] MEDS ORDERED: CARV12.52 PO (19:08)
[2017-06-18] MEDS ORDERED: LISI40TA PO (19:08)
[2017-06-18] MEDS ORDERED: FURO40TA PO (19:08)
[2017-06-18] MEDS ORDERED: WARF-23 PO (19:08)
[2017-06-18] MEDS ORDERED: POTA-163 PO (19:08)
--- NOTE | 2017-06-18 19:11 | PD ---
Physical Exam Narrative General: The patient is a well-developed well-nourished male, drowsy on examination, diaphoretic. Head and Neck exam: Head is normocephalic atraumatic. Eyes: EOMI, pupils are equal round and reactive to light. Nose: Midline septum with pink mucous membranes Mouth: Dentition unremarkable. Moist mucus membranes. Posterior oropharynx is not erythematous. No tonsillar hypertrophy. Uvula midline. Airway patent. Neck: No palpable lymphadenopathy. No nuchal rigidity. No thyromegaly. Cardiovascular: Regular rate and rhythm without murmurs, gallops, or rubs. The patient's pulses in the 90s. Initial blood pressure 91 systolic Lungs: Clear to auscultation bilaterally. No wheezes, rhonchi, or rales. Abdomen: Soft, without tenderness to palpation in all 4 quadrants of the abdomen. No guarding, rebound, or rigidity. Normal bowel sounds are audible. No tenderness on palpation of McBurney's point. The patient appears to have had abdominal surgery with scarring at the center of his abdomen, however no point tenderness on palpation over his scar tissue. Extremities: No clubbing or cyanosis. The patient has edema noted there is trace to 1+ of bilateral lower extremities which she reports is chronic, his left lower extremity is larger than the right which she also reports is chronic related to a prior history of DVT. 2+ pulses in all 4 extremities. Back: No costovertebral angle tenderness to palpation. Neurologic Exam: Grossly nonfocal. Skin Exam: No rash noted. Intact skin that is warm and slightly diaphoretic. Data Data Last Documented VS Vital Signs Date Time Temp Pulse Resp B/P Pulse Ox O2 Delivery O2 Flow Rate FiO2 06/18/17 19:57 99 14 78/52 96 Room Air 06/18/17 18:54 98.5 Orders Complete Blood Count With Diff (06/18/17 19:06) Comprehensive Metabolic Panel (06/18/17 19:06) B-Type Natriuretic Peptide (06/18/17 19:06) Act Partial Throm Time (Ptt) (06/18/17 19:06) Prothrombin Time / Inr (Pt) (06/18/17 19:06) Magnesium (Mg) (06/18/17 19:06) Ckmb (Isoenzyme) Profile (06/18/17 19:06) Troponin I (06/18/17 19:06) Iv Access Insert/Monitor (06/18/17 19:06) Electrocardiogram (06/18/17 19:06) Ecg Monitoring (06/18/17 19:06) Oximetry (06/18/17 19:06) Oxygen Administration (06/18/17 19:06) Chest, Single Ap (06/18/17 19:06) Sodium Chloride 0.9% Flush (Ns Flush) (06/18/17 19:15) Sodium Chlor 0.9% 1000 Ml Inj (Ns 1000 M (06/18/17 19:06) Lactic Acid Sepsis Protocol (06/18/17 19:06) Blood Culture (06/18/17 19:06) Urinary Catheter Insert/Apply (06/18/17 19:15) Type And Screen (06/18/17 19:37) Sodium Chlor 0.9% 1000 Ml Inj (Ns 1000 M (06/18/17 19:37) Pantoprazole Inj (Protonix Inj) (06/18/17 20:00) Pantoprazole Inj (Protonix Inj) (06/18/17 20:00) Red Blood Cells (Rbc) (06/18/17 19:49) Blood Product Administration .UPON TRANSFUSION (06/18/17 19:49) Sodium Chlor 0.9% 250 Ml Inj (Ns 250 Ml (06/18/17 20:00) Sodium Chlor 0.9% 1000 Ml Inj (Ns 1000 M (06/18/17 19:49) CKMB (06/18/17 19:15) CKMB% (06/18/17 19:15) Admit Order (Ed Use Only) (06/18/17 20:15) Prothrombin Complex Conc Inj (Kcentra In (06/18/17 20:30) Labs Laboratory Tests Test 06/18/17 06/18/17 06/18/17 06/18/17 12:18 19:15 20:02 20:15 Blood Type A POSITIVE A POSITIVE White Blood Count 15.1 TH/MM3 Red Blood Count 3.15 MIL/MM3 Hemoglobin 9.8 GM/DL Hematocrit 28.6 % Mean Corpuscular Volume 90.7 FL Mean Corpuscular Hemoglobin 31.1 PG Mean Corpuscular Hemoglobin 34.3 % Concent Red Cell Distribution Width 12.6 % Platelet Count 191 TH/MM3 Mean Platelet Volume 9.7 FL Neutrophils (%) (Auto) 86.0 % Lymphocytes (%) (Auto) 9.8 % Monocytes (%) (Auto) 3.8 % Eosinophils (%) (Auto) 0.0 % Basophils (%) (Auto) 0.4 % Neutrophils # (Auto) 13.0 TH/MM3 Lymphocytes # (Auto) 1.5 TH/MM3 Monocytes # (Auto) 0.6 TH/MM3 Eosinophils # (Auto) 0.0 TH/MM3 Basophils # (Auto) 0.1 TH/MM3 CBC Comment DIFF FINAL Differential Comment Prothrombin Time 38.9 SEC Prothromb Time International 3.3 RATIO Ratio Activated Partial 34.6 SEC Thromboplast Time Sodium Level 135 MEQ/L Potassium Level 3.8 MEQ/L Chloride Level 104 MEQ/L Carbon Dioxide Level 22.7 MEQ/L Anion Gap 8 MEQ/L Blood Urea Nitrogen 64 MG/DL Creatinine 1.27 MG/DL Estimat Glomerular Filtration 69 ML/MIN Rate Random Glucose 165 MG/DL Lactic Acid Level 2.4 mmol/L Calcium Level 9.1 MG/DL Magnesium Level 1.8 MG/DL Total Bilirubin 0.3 MG/DL Aspartate Amino Transf 12 U/L (AST/SGOT) Alanine Aminotransferase 30 U/L (ALT/SGPT) Alkaline Phosphatase 44 U/L Total Creatine Kinase 106 U/L Creatine Kinase MB LESS THAN 0.5 NG/ML Troponin I LESS THAN 0.02 NG/ML B-Type Natriuretic Peptide 13 PG/ML Total Protein 6.3 GM/DL Albumin 3.0 GM/DL Crossmatch Leukocyte-Reduced Red Blood Cells Blood Bank Comment Antibody Screen NEGATIVE [facility] Medical Record Reviewed: Yes Supervised Visit with HERMELINDO: No Interpretation(s) Last Impressions Chest X-Ray 06/18/171905 Signed Impressions: Service Date/Time: Sunday, June 18, 2017 19:06 - CONCLUSION: No acute disease. Aly Mora MD Differential Diagnosis Symptomatic anemia, versus pulmonary embolism, versus acute coronary syndrome, versus sepsis Narrative Course I, Dr. Reyes, have reviewed the advance practice practitioner's documentation and am in agreement, met with the patient face to face, made the diagnosis, and the medical decision making was done by me. The patient was initially evaluated by Reynaldo. Please see his complete history and physical. *My assessment and Findings: The patient is a 61-year-old male who presents to [facility] emergency Department with reported shortness of breath, dyspnea on exertion that is been present since yesterday. He denies having any significant cough. He denies having any worsening lower extremity edema. He denies having any prior history of cardiac disease. He does however have a history of being chronically anticoagulated on Coumadin related to a DVT in the left lower extremity that was diagnosed in November 2016. During the course of the patients emergency department visit, the patients history, examination, and differential diagnosis were reviewed with the patient. The patient had IV access obtained and blood work sent for analysis. The patient was initially provided normal saline 1 L IV fluid bolus which was repeated, Protonix 80 IV followed by Protonix drip was administered. The patient was noted by Reynaldo to have melanotic stools on rectal examination. The patient was typed and crossmatched for blood administration. The patients laboratory studies were reviewed and remarkable for an INR 3.3. The patient will have prothrombin concentrated administered, CMP is remarkable for sodium of 135, BUN 64 consistent with a GI bleed, glucose 165, lactic acid 2.4, AST 12, alkaline phosphatase 44, CPK 106, troponin I less than 0.02, BNP 13 , albumin 3. CBC shows a white count of 15.1, initial hemoglobin 9.8, platelets 191 with 86 neutrophils. In spite of fluid administration the patient continued to be borderline hypotensive with a blood pressure of 82/58. The patient was given a second liter of normal saline IV fluids. The patient was ordered to have 2 units of packed red blood cells administered urgently. The patient's blood pressure began to improve and on last evaluation in the emergency department prior to transfer up to the intensive care unit it was 106/ 58. Radiology studies were reviewed and remarkable for a chest x-ray that shows no acute disease, CT scan of the abdomen and pelvis shows constipation, small fat- containing umbilical hernia, bladder wall thickening, nonobstructing right renal calculus measuring 3 mm, alt tubal hepatic and left renal cyst. The patients results were discussed with the patient, including the plan of care. I explained that further testing and/ or monitoring is indicated based on the patients history, examination, and/ or laboratory findings. Therefore, I recommended admission for additional evaluation. The patient expressed understanding and was agreeable with this plan. The patient was admitted to the hospital in critical condition and sent to a bed under the care of the franchise development manager. Critical Care Narrative Aggregate critical care time was 35 minutes. Time to perform other separately billable procedures was not included in the critical care time. My time did not include minutes spent treating any other patients simultaneously or on activities that did not directly contribute to the patient's treatment. The services I provided to this patient were to treat and/or prevent clinically significant deterioration that could result in: Cardiovascular collapse related to hemorrhagic shock, versus fluid overload from volume resuscitation I provided critical care services requiring my management, as noted below: Chart data review, documentation time, medication orders and management, vital sign assessments/reviewing monitor data, ordering and reviewing lab tests, ordering and interpreting/reviewing x-rays and diagnostic studies, care of the patient and discussion of the patient with the admitting physicians. Diagnosis Primary Impression: Acute GI bleeding Admitting Information Admitting Physician Requests: Lien Saravia MD Jun 18, 2017 19:11
--- NOTE | 2017-06-18 19:14 | PD ---
HPI Chief Complaint: Respiratory Symptoms Time Seen by Provider: 19:00 Travel History International Travel<30 days: No Contact w/Intl Traveler<30days: No Traveled to known affect area: No History of Present Illness HPI This Is a 61-year-old male patient of the [place] with history of hypertension, DVT in the left lower extremity diagnosed in November, on Coumadin, who presents with his sister for evaluation of dyspnea. Symptoms started yesterday evening. He reports dyspnea with exertion which is new. While in triage he became diaphoretic and when his blood pressure was rechecked in the right upper extremity his blood pressure was 70s over 40s and left upper extremity was 91/ 63. The patient denies any chest pain, headache, blurred vision, focal weakness in the extremities, slurred speech, facial droop. He has been compliant with his Coumadin. He denies any obvious black or tarry stools, hematochezia, hematemesis, denies cough congestion, nausea or vomiting, abdominal pain, fevers or chills. PFSH Past Medical History Hx Anticoagulant Therapy: Yes (warfarin) Arthritis: Yes Anxiety: Yes Depression: Yes Cancer: Yes Cardiovascular Problems: Yes High Cholesterol: Yes Chemotherapy: No Chest Pain: Yes Diminished Hearing: No Endocrine: No GERD: Yes Genitourinary: No Hepatitis: Yes Hypertension: Yes Immune Disorder: No Musculoskeletal: Yes Neurologic: Yes Psychiatric: Yes Reproductive: No Respiratory: Yes Radiation Therapy: No Past Surgical History Abdominal Surgery: Yes (hernia rpr 2006) Body Medical Devices: hardware in neck, unsure if metal Cardiac Surgery: No Ear Surgery: No Endocrine Surgery: No Eye Surgery: No Genitourinary Surgery: No Gynecologic Surgery: No Oral Surgery: No Thoracic Surgery: No Other Surgery: Yes (spinal infusion 2014) Social History Alcohol Use: No Tobacco Use: No Substance Use: No Allergies-Medications (Allergen,Severity, Reaction): Coded Allergies: No Known Allergies (Unverified , 06/18/17) Reported Meds & Prescriptions Reported Meds & Active Scripts Active Reported Warfarin 1 Mg Tab 1.5 Mg PO DAILY Warfarin 5 Mg Tab 5 Mg PO DAILY Potassium Chloride ER (Potassium Chloride) 20 Meq Tab 20 Meq PO BID Carvedilol 12.5 Mg Tab 12.5 Mg PO BID Furosemide 40 Mg Tab 40 Mg PO BID Lisinopril 40 Mg Tab 40 Mg PO DAILY Review of Systems Except as stated in HPI: all other systems reviewed are Neg Physical Exam Narrative GENERAL: This is a well-developed well-nourished male who is diaphoretic and hypotensive upon initial examination. SKIN: Warm and dry. HEAD: Atraumatic. Normocephalic. EYES: Pupils equal and round. No scleral icterus. No injection or drainage. ENT: No nasal bleeding or discharge. Mucous membranes pink and moist. NECK: Trachea midline. No JVD. CARDIOVASCULAR: Regular rate and rhythm. No murmur appreciated. RESPIRATORY: No accessory muscle use. Clear to auscultation. Breath sounds equal bilaterally. GASTROINTESTINAL: Abdomen soft, non-tender, nondistended. Hepatic and splenic margins not palpable. MUSCULOSKELETAL: No obvious deformities. No clubbing. No cyanosis. No edema. NEUROLOGICAL: Awake and alert. No obvious cranial nerve deficits. Motor grossly within normal limits. Normal speech. PSYCHIATRIC: Appropriate mood and affect; insight and judgment normal. Data Data Last Documented VS Vital Signs Date Time Temp Pulse Resp B/P Pulse Ox O2 Delivery O2 Flow Rate FiO2 06/18/17 19:57 99 14 78/52 96 Room Air 06/18/17 18:54 98.5 Orders Complete Blood Count With Diff (06/18/17 19:06) Comprehensive Metabolic Panel (06/18/17 19:06) B-Type Natriuretic Peptide (06/18/17 19:06) Act Partial Throm Time (Ptt) (06/18/17 19:06) Prothrombin Time / Inr (Pt) (06/18/17 19:06) Magnesium (Mg) (06/18/17 19:06) Ckmb (Isoenzyme) Profile (06/18/17 19:06) Troponin I (06/18/17 19:06) Iv Access Insert/Monitor (06/18/17 19:06) Electrocardiogram (06/18/17 19:06) Ecg Monitoring (06/18/17 19:06) Oximetry (06/18/17 19:06) Oxygen Administration (06/18/17 19:06) Chest, Single Ap (06/18/17 19:06) Sodium Chloride 0.9% Flush (Ns Flush) (06/18/17 19:15) Sodium Chlor 0.9% 1000 Ml Inj (Ns 1000 M (06/18/17 19:06) Lactic Acid Sepsis Protocol (06/18/17 19:06) Blood Culture (06/18/17 19:06) Urinary Catheter Insert/Apply (06/18/17 19:15) Type And Screen (06/18/17 19:37) Sodium Chlor 0.9% 1000 Ml Inj (Ns 1000 M (06/18/17 19:37) Pantoprazole Inj (Protonix Inj) (06/18/17 20:00) Pantoprazole Inj (Protonix Inj) (06/18/17 20:00) Red Blood Cells (Rbc) (06/18/17 19:49) Blood Product Administration .UPON TRANSFUSION (06/18/17 19:49) Sodium Chlor 0.9% 250 Ml Inj (Ns 250 Ml (06/18/17 20:00) Sodium Chlor 0.9% 1000 Ml Inj (Ns 1000 M (06/18/17 19:49) CKMB (06/18/17 19:15) CKMB% (06/18/17 19:15) Admit Order (Ed Use Only) (06/18/17 20:15) Prothrombin Complex Conc Inj (Kcentra In (06/18/17 20:30) Labs Laboratory Tests Test 06/18/17 06/18/17 06/18/17 06/18/17 12:18 19:15 20:02 20:15 Blood Type A POSITIVE A POSITIVE White Blood Count 15.1 TH/MM3 Red Blood Count 3.15 MIL/MM3 Hemoglobin 9.8 GM/DL Hematocrit 28.6 % Mean Corpuscular Volume 90.7 FL Mean Corpuscular Hemoglobin 31.1 PG Mean Corpuscular Hemoglobin 34.3 % Concent Red Cell Distribution Width 12.6 % Platelet Count 191 TH/MM3 Mean Platelet Volume 9.7 FL Neutrophils (%) (Auto) 86.0 % Lymphocytes (%) (Auto) 9.8 % Monocytes (%) (Auto) 3.8 % Eosinophils (%) (Auto) 0.0 % Basophils (%) (Auto) 0.4 % Neutrophils # (Auto) 13.0 TH/MM3 Lymphocytes # (Auto) 1.5 TH/MM3 Monocytes # (Auto) 0.6 TH/MM3 Eosinophils # (Auto) 0.0 TH/MM3 Basophils # (Auto) 0.1 TH/MM3 CBC Comment DIFF FINAL Differential Comment Prothrombin Time 38.9 SEC Prothromb Time International 3.3 RATIO Ratio Activated Partial 34.6 SEC Thromboplast Time Sodium Level 135 MEQ/L Potassium Level 3.8 MEQ/L Chloride Level 104 MEQ/L Carbon Dioxide Level 22.7 MEQ/L Anion Gap 8 MEQ/L Blood Urea Nitrogen 64 MG/DL Creatinine 1.27 MG/DL Estimat Glomerular Filtration 69 ML/MIN Rate Random Glucose 165 MG/DL Lactic Acid Level 2.4 mmol/L Calcium Level 9.1 MG/DL Magnesium Level 1.8 MG/DL Total Bilirubin 0.3 MG/DL Aspartate Amino Transf 12 U/L (AST/SGOT) Alanine Aminotransferase 30 U/L (ALT/SGPT) Alkaline Phosphatase 44 U/L Total Creatine Kinase 106 U/L Creatine Kinase MB LESS THAN 0.5 NG/ML Troponin I LESS THAN 0.02 NG/ML B-Type Natriuretic Peptide 13 PG/ML Total Protein 6.3 GM/DL Albumin 3.0 GM/DL Crossmatch Leukocyte-Reduced Red Blood Cells Blood Bank Comment Antibody Screen NEGATIVE MDM Medical Decision Making Medical Screen Exam Complete: Yes Emergency Medical Condition: Yes Medical Record Reviewed: Yes Interpretation(s) CBC hemoglobin 9.8 INR 3.3 Chest x-ray no acute abnormalities CT abdomen and pelvis CONCLUSION: 1. Constipation. 2. Small fat containing umbilical hernia. 3. Bladder wall thickening. 4. Nonobstructing right renal calculus measures 3 mm. 5. Multiple hepatic and left renal cysts. Differential Diagnosis PE, symptomatic anemia, GI bleed, dehydration, which led abnormality, ACS, CHF Narrative Course A twelve-lead EKG was immediately obtained. The patient was placed on ECG monitoring and pulse oximetry. IV was established and the patient was given 1 L fluid bolus. He was made supine. Plan is for basic lab work, chest x-ray, CT pulmonary angiogram. A rectal examination was performed revealing obvious melena. Additional IV has been established, additional liter of fluids is been ordered, the patient was given a Protonix bolus as well as Protonix drip. His hemoglobin is 9.8 but given his acute hypotension 2 units packed red blood cells have been ordered. The CT pulmonary angiogram which was initially ordered was canceled. I discussed with the bacteriology technician business unit controller Dr. Goode. She would like the INR to be reversed and she would also like a CT of the abdomen and pelvis. I discussed with tattoo artist Dr. Dodd who accepts the patient, recommends Kcentra for INR reversal. Procedures EKG Prior to Arrival: Yes Diagnosis Primary Impression: Acute GI bleeding Additional Impressions: Melena Hypotension Qualified Code: I95.9 - Hypotension, unspecified hypotension type Supratherapeutic INR Admitting Information Admitting Physician Requests: Admit Reynaldo Ruano Jun 18, 2017 19:14
[2017-06-18] MEDS ORDERED: SODIUM CHLORIDE 0.9% FLUSH 10 ML FLUSH IVF PRN (19:15)
--- NOTE | 2017-06-18 19:25 | RADRPT ---
EXAM DATE/TIME: 06/18/2017 19:06 [facility] COMPARISON: No previous studies available for comparison. INDICATIONS : Shortness of breath. MEDICAL HISTORY : Congestive heart failure. SURGICAL HISTORY : None. ENCOUNTER: Initial ACUITY: 1 day PAIN SCORE: 0/10 LOCATION: Bilateral chest FINDINGS: A single view of the chest demonstrates the lungs to be symmetrically aerated without evidence of mas s, infiltrate or effusion. The cardiomediastinal contours are unremarkable. Osseous structures are intact. CONCLUSION: No acute disease. Aly Mora MD on June 18, 2017 at 19:24 Board Certified Radiologist. This report was verified electronically.
[2017-06-18 19:33] LABS: BASOPHIL # 0.1 TH/MM3 (0-0.2); BASOPHIL % 0.4 % (0.0-2.0); HEMATOCRIT 28.6 % (39.0-51.0); HEMO FLAGS DIFF FINAL; LYMPH % 9.8 % (9.0-44.0); LYMPHOCYTE # 1.5 TH/MM3 (1.0-4.8); MEAN CELL VOLUME 90.7 FL (80.0-100.0); MEAN CORPUSCULAR HEMOGLOBIN 31.1 PG (27.0-34.0); MEAN CORPUSCULAR HGB CONC 34.3 % (32.0-36.0); MONO % 3.8 % (0.0-8.0); PLATELET COUNT 191 TH/MM3 (150-450); RED BLOOD COUNT 3.15 MIL/MM3 (4.50-5.90); RED CELL DISTRIBUTION WIDTH 12.6 % (11.6-17.2); WHITE BLOOD COUNT 15.1 TH/MM3 (4.0-11.0)
[2017-06-18 19:47] LABS: APTT (PATIENT) 34.6 SEC (24.3-30.1); INTERNATIONAL NORMALIZED RATIO 3.3 RATIO; PROTHROMBIN TIME - PATIENT 38.9 SEC (9.8-11.6)
[2017-06-18 19:55] LABS: ANION GAP 8 MEQ/L (5-15); AST (GOT) 12 U/L (15-37); BICARBONATE 22.7 MEQ/L (21.0-32.0); BLOOD UREA NITROGEN 64 MG/DL (7-18); CHLORIDE 104 MEQ/L (98-107); GLOMERULAR FILTRATION RATE 69 ML/MIN (>89); MAGNESIUM 1.8 MG/DL (1.5-2.5); POTASSIUM 3.8 MEQ/L (3.5-5.1); SODIUM (NA) 135 MEQ/L (136-145)
[2017-06-18 19:56] LABS: ALT (GPT) 30 U/L (12-78)
[2017-06-18 20:00] LABS: ALKALINE PHOSPHATASE 44 U/L (45-117); CREATINE KINASE 106 U/L (39-308); TOTAL BILIRUBIN ADULT 0.3 MG/DL (0.2-1.0)
[2017-06-18] MEDS ORDERED: PANTOPRAZOLE INJ 80 MG in SODIUM CHLORIDE 0.9% INJ 35 ML IV ONE (20:00)
[2017-06-18] MEDS ORDERED: SODIUM CHLOR 0.9% 250 ML INJ 250 ML IV ONE (20:00)
[2017-06-18] MEDS ORDERED: PANTOPRAZOLE INJ 80 MG in SODIUM CHLORIDE 0.9% INJ 100 ML IV SCH (20:00)
[2017-06-18 20:12] LABS: CKMB LESS THAN 0.5 NG/ML (0.5-3.6)
[2017-06-18] MEDS ORDERED: PROTHROMBIN COMPLEX CONC INJ 2,500 UNITS in SYRINGE/BAG 1 EA IV ONE (20:30)
[2017-06-18] MEDS ORDERED: IOHEXOL 350 MG/ML 10 ML VIAL (for RAD DIAG) IV ONE (21:12)
[2017-06-18 21:25] LABS: LACTIC ACID GHOST NOT REPORTABLE
--- NOTE | 2017-06-18 21:28 | EKG ---
Date Performed: 06/18/2017 Time Performed: 19:01:41 PTAGE: 61 years EKG: SINUS TACHYCARDIA BORDERLINE LEFT AXIS DEVIATION NONSPECIFIC T-WAVE ABNORMALITY ABNORMAL [facility] ECG PREVIOUS TRACING : 11/08/2011 03.17 No significant change from previous tracing noted. DOCTOR: Ant Dent Interpretating Date/Time 06/18/2017 21:27:05
--- NOTE | 2017-06-18 21:32 | RADRPT ---
EXAM DATE/TIME: 06/18/2017 21:10 [facility] COMPARISON: No previous studies available for comparison. INDICATIONS : Blood in stool and general weakness. IV CONTRAST: 95 cc Omnipaque 350 (iohexol) IV ORAL CONTRAST: No oral contrast ingested. RADIATION DOSE: 20.93 CTDIvol (mGy) MEDICAL HISTORY : Cardiovascular disease. Hypertension. Hepatitis C. SURGICAL HISTORY : None. ENCOUNTER: Initial ACUITY: 1 day PAIN SCALE: 0/10 LOCATION: Bilateral abdomen TECHNIQUE: Volumetric scanning of the abdomen and pelvis was performed. Using automated exposure control and ad justment of the mA and/or kV according to patient size, radiation dose was kept as low as reasonably achievable to obtain optimal diagnostic quality images. DICOM format image data is available electro nically for review and comparison. FINDINGS: LOWER LUNGS: The visualized lower lungs are clear. LIVER: Homogeneous density without dilation of the biliary tree. No calcified gallstones. Multiple low dens ities. SPLEEN: Normal size without lesion. PANCREAS: Within normal limits. KIDNEYS: Normal in size and shape. There is no mass, stone or hydronephrosis on the left. A nonobstructing 3 mm calculus right kidney. ADRENAL GLANDS: Within normal limits. VASCULAR: There is no aortic aneurysm. BOWEL/MESENTERY: Copious stool in the rectum small lymph node right lower quadrant measures 13 mm.. There is no free intraperitoneal air or fluid. ABDOMINAL WALL: Within normal limits. RETROPERITONEUM: There is no lymphadenopathy. BLADDER: Decompressed by Palafox catheter. Bladder wall thickening measures 1 cm.. REPRODUCTIVE: Within normal limits. INGUINAL: There is no lymphadenopathy or hernia. MUSCULOSKELETAL: Within normal limits for patient age. CONCLUSION: 1. Constipation. 2. Small fat containing umbilical hernia. 3. Bladder wall thickening. 4. Nonobstructing right renal calculus measures 3 mm. 5. Multiple hepatic and left renal cysts. Aly Mora MD on June 18, 2017 at 21:28 Board Certified Radiologist. This report was verified electronically.
[2017-06-18] MEDS ORDERED: ONDANSETRON HCL 4 MG/2 ML VIAL IV PRN (21:45)
[2017-06-18] MEDS ORDERED: LACTULOSE SYRUP 20 GM/30 ML CUP PO PRN (21:45)
[2017-06-18] MEDS ORDERED: MISCELLANEOUS NURSING INFORMATION XX SCH (21:45)
[2017-06-18] MEDS ORDERED: ACETAMINOPHEN 325 MG TAB PO PRN (21:45)
[2017-06-18] MEDS ORDERED: BISACODYL 10 MG SUPP RECTAL PRN (21:45)
[2017-06-18] MEDS ORDERED: SENNOSIDES 8.6 MG TAB PO PRN (21:45)
[2017-06-18] MEDS ORDERED: CHLORHEXIDINE GLUCONATE 2 % 1 PACK (2 CLOTHS) TOP PRN (21:45)
[2017-06-18] MEDS ORDERED: MAGNESIUM HYDROXIDE SUSP 30 ML CUP PO PRN (21:45)
[2017-06-18] MEDS ORDERED: SODIUM CHLORIDE 0.9% FLUSH 10 ML FLUSH PRN (21:45)
[2017-06-18] MEDS ORDERED: RESP: ALBUTEROL 2.5 MG/IPRATROPIUM 0.5 MG NEB (PRN) INH (21:45)
--- NOTE | 2017-06-18 22:12 | HHI.HP ---
[facility] Service Critical Care Medicine Primary Care Physician Jaelyn [facility] Admission Diagnosis GI bleed, hypotension Diagnosis: Travel History International Travel<30 Days: No Contact w/Intl Traveler <30 Da: No Traveled to Known Affected Are: No History of Present Illness 61-year-old male patient of the [place] with history of hypertension, DVT in the left lower extremity diagnosed in November, on Coumadin, who presents for evaluation of dyspnea. Symptoms started yesterday evening. He reports dyspnea with exertion which is new. While in triage he became diaphoretic and when his blood pressure was rechecked in the right upper extremity his blood pressure was 70s. The patient denies any chest pain, headache, blurred vision, focal weakness in the extremities, slurred speech, facial droop. He has been compliant with his Coumadin. He denies any obvious black or tarry stools, hematochezia, hematemesis, denies cough congestion, nausea or vomiting, abdominal pain, fevers or chills. While in the emergency department he became again diaphoretic and his H&H dropped from 8.9-7.9. He is now receiving 2 units of PRBC emergently. Review of Systems Constitutional: DENIES: Diaphoretic episodes, Fatigue, Fever, Weight gain, Weight loss, Chills, Dizziness, Change in appetite, Night Sweats Endocrine: DENIES: Heat/cold intolerance, Polydipsia, Polyuria, Polyphagia Eyes: DENIES: Blurred vision, Diplopia, Eye inflammation, Eye pain, Vision loss , Photosensitivity, Double Vision Ears, nose, mouth, throat: DENIES: Tinnitus, Hearing loss, Vertigo, Nasal discharge, Oral lesions, Throat pain, Hoarseness, Ear Pain, Running Nose, Epistaxis, Sinus Pain, Toothache, Odynophagia Respiratory: COMPLAINS OF: Shortness of breath, DENIES: Apneas, Cough, Snoring , Wheezing, Hemoptysis, Sputum production Cardiovascular: DENIES: Chest pain, Palpitations, Syncope, Dyspnea on Exertion , PND, Lower Extremity Edema, Orthopnea, Claudication Gastrointestinal: DENIES: Abdominal pain, Black stools, Bloody stools, Constipation, Diarrhea, Nausea, Vomiting, Difficulty Swallowing, Anorexia Genitourinary: DENIES: Sexual dysfunction, Urinary frequency, Urinary incontinence, Urgency, Hematuria, Dysuria, Nocturia, Penile Discharge, Testicular Pain, Testicular Swelling Musculoskeletal: DENIES: Joint pain, Muscle aches, Stiffness, Joint Swelling, Back pain, Neck pain Integumentary: DENIES: Abnormal pigmentation, Nail changes, Pruritus, Rash Hematologic/lymphatic: DENIES: Bruising, Lymphadenopathy Immunologic/allergic: DENIES: Eczema, Urticaria Neurologic: DENIES: Abnormal gait, Headache, Localized weakness, Paresthesias, Seizures, Speech Problems, Tremor, Poor Balance Psychiatric: DENIES: Anxiety, Confusion, Mood changes, Depression, Hallucinations, Agitation, Suicidal Ideation, Homicidal Ideation, Delusions Past Family Social History Allergies: Coded Allergies: No Known Allergies (Unverified , 06/18/17) Past Medical History DVT HTN Left shoulder arthritis Past Surgical History Surgery of the neck Abdominal hernia repair Rotator cuff repair right shoulder Reported Medications Reported Meds & Active Scripts Active Reported Warfarin 1 Mg Tab 1.5 Mg PO DAILY Warfarin 5 Mg Tab 5 Mg PO DAILY Potassium Chloride ER (Potassium Chloride) 20 Meq Tab 20 Meq PO BID Carvedilol 12.5 Mg Tab 12.5 Mg PO BID Furosemide 40 Mg Tab 40 Mg PO BID Lisinopril 40 Mg Tab 40 Mg PO DAILY Active Ordered Medications Current Medications Medications (Trade) Dose Ordered Sig/Katya Route PRN Reason Start Time Stop Time Status Last Admin Dose Admin Sodium Chloride 2 ml 2 ml UNSCH PRN IVF FLUSH AFTER USING IV ACCESS 06/18/17 19:15 Sodium Chloride 250 ml @ 15 mls/hr ONCE ONCE IV 06/18/17 20:00 06/19/17 12:39 06/18/17 21:56 Sodium Chloride (NS 1000 ml Inj) 1,000 ml @ 84 mls/hr [id number] IV 06/18/17 21:42 06/18/17 22:22 Sodium Chloride (NS Flush) 2 ml UNSCH PRN .XX FLUSH AFTER USING IV ACCESS 06/18/17 21:45 Sodium Chloride (NS Flush) 2 ml BID .XX 06/19/17 09:00 Acetaminophen (Tylenol) 650 mg Q6H PRN PO PAIN 1-10 AND/OR FEVER >101F 06/18/17 21:45 Morphine Sulfate (Morphine Inj) 2 mg Q2H PRN IV PAIN SCALE 6 TO 10 06/18/17 21:45 Pantoprazole Sodium (Protonix Inj) 40 mg Q12H IV 06/18/17 23:00 Ondansetron HCl (Zofran Inj) 4 mg Q6H PRN IV NAUSEA OR VOMITING 06/18/17 21:45 Miscellaneous Information 1 [id number] XX 06/18/17 21:45 Chlorhexidine Gluconate (Chlorhexidine 2% Cloth) 3 pack Taper DAILY@04 TOP 06/19/17 04:00 06/15/18 03:59 Chlorhexidine Gluconate (Chlorhexidine 2% Cloth) 3 pack UNSCH PRN TOP HYGIENIC CARE 06/18/17 21:45 Senna/Docusate Sodium (Neva-Colace) 1 tab BID PO 06/19/17 09:00 Magnesium Hydroxide (Milk Of Magnesia Liq) 30 ml Q12H PRN PO MILD - MODERATE CONSTIPATION 06/18/17 21:45 Sennosides (Senokot) 17.2 mg Q12H PRN PO MODERATE - SEVERE CONSTIPATION 06/18/17 21:45 Bisacodyl (Dulcolax Supp) 10 mg DAILY PRN RECTAL SEVERE CONSITIPATION 06/18/17 21:45 Lactulose (Lactulose Liq) 30 ml DAILY PRN PO SEVERE CONSITIPATION 06/18/17 21:45 Family History No family history of early coronary artery disease or cancer Social History Quit smoking 30 years ago Used to green party including alcohol and other substances however this is all in a remote history No current alcohol or illicit drug abuse Physical Exam Vital Signs Vital Signs Date Time Temp Pulse Resp B/P Pulse Ox O2 Delivery O2 Flow Rate FiO2 06/18/17 21:56 97.7 117 18 106/58 98 Room Air 06/18/17 21:05 109 20 124/64 100 Room Air 06/18/17 20:25 104 19 82/58 95 Room Air 06/18/17 19:57 99 14 78/52 96 Room Air 06/18/17 19:11 15 96 Room Air 06/18/17 19:03 101 15 91/63 98 Room Air 06/18/17 18:54 98.5 87 18 142/89 99 Physical Exam GENERAL: Well-nourished, well-developed patient. SKIN: Warm and dry. HEAD: Normocephalic. EYES: No scleral icterus. No injection or drainage. NECK: Supple, trachea midline. No JVD or lymphadenopathy. CARDIOVASCULAR: Regular rate and rhythm without murmurs, gallops, or rubs. RESPIRATORY: Breath sounds equal bilaterally. No accessory muscle use. GASTROINTESTINAL: Abdomen soft, non-tender, nondistended. MUSCULOSKELETAL: No cyanosis, or edema. BACK: Nontender without obvious deformity. No CVA tenderness. EXTREMITIES: No clubbing cyanosis or edema Laboratory Laboratory Tests Test 06/18/17 06/18/17 06/18/17 06/18/17 12:18 19:15 20:02 20:15 Blood Type A POSITIVE A POSITIVE White Blood Count 15.1 Red Blood Count 3.15 Hemoglobin 9.8 Hematocrit 28.6 Mean Corpuscular Volume 90.7 Mean Corpuscular Hemoglobin 31.1 Mean Corpuscular Hemoglobin 34.3 Concent Red Cell Distribution Width 12.6 Platelet Count 191 Mean Platelet Volume 9.7 Neutrophils (%) (Auto) 86.0 Lymphocytes (%) (Auto) 9.8 Monocytes (%) (Auto) 3.8 Eosinophils (%) (Auto) 0.0 Basophils (%) (Auto) 0.4 Neutrophils # (Auto) 13.0 Lymphocytes # (Auto) 1.5 Monocytes # (Auto) 0.6 Eosinophils # (Auto) 0.0 Basophils # (Auto) 0.1 CBC Comment DIFF FINAL Differential Comment Prothrombin Time 38.9 Prothromb Time International 3.3 Ratio Activated Partial 34.6 Thromboplast Time Sodium Level 135 Potassium Level 3.8 Chloride Level 104 Carbon Dioxide Level 22.7 Anion Gap 8 Blood Urea Nitrogen 64 Creatinine 1.27 Estimat Glomerular Filtration 69 Rate Random Glucose 165 Lactic Acid Level 2.4 Calcium Level 9.1 Magnesium Level 1.8 Total Bilirubin 0.3 Aspartate Amino Transf 12 (AST/SGOT) Alanine Aminotransferase 30 (ALT/SGPT) Alkaline Phosphatase 44 Total Creatine Kinase 106 Creatine Kinase MB LESS THAN 0.5 Troponin I LESS THAN 0.02 B-Type Natriuretic Peptide 13 Total Protein 6.3 Albumin 3.0 Crossmatch Leukocyte-Reduced Red Blood Cells Blood Bank Comment Antibody Screen NEGATIVE Date/Time Procedure Status Source Growth 06/18/17 19:30 Aerobic Blood Culture Received Blood Peripheral Pending 06/18/17 19:30 Anaerobic Blood Culture Received Blood Peripheral Pending Result Diagram: 06/18/17191406/18/171914 Imaging Last 24 hours Impressions Abdomen/Pelvis CT 06/18/172046 Signed Impressions: Service Date/Time: Sunday, June 18, 2017 21:10 - CONCLUSION: 1. Constipation. 2. Small fat containing umbilical hernia. 3. Bladder wall thickening. 4. Nonobstructing right renal calculus measures 3 mm. 5. Multiple hepatic and left renal cysts. Aly Mora MD Chest X-Ray 06/18/17 [id number] Signed Impressions: Service Date/Time: Sunday, June 18, 2017 19:06 - CONCLUSION: No acute disease. Aly Mora MD Assessment and Plan Assessment and Plan GI bleed - Reverse Coumadin with Kcentra and vitamin K - GI consult appreciated - IV Protonix - Transfuse as needed Anemia - Blood loss anemia - Transfuse for hemoglobin less than 8 - Or for hemodynamic instability Acute kidney injury - Volume depleted - IV fluids resuscitation - Monitor trend of creatinine and strict I's and O's DVT of lower extremity - Unable to continue anticoagulation - IR consult for IVC filter placement Hypertension - Currently hypotensive we'll continue to hold all home meds DVT GI prophylaxis - Teds SCDs - No pharmacological DVT prophylaxis due to acute GI bleed - IV Protonix Critical Care: The total critical care time was 35 minutes. Time to perform other separately billable procedures was not included in the critical care time. Chase Dodd MD Jun 18, 2017 22:12
[2017-06-18] MEDS: SODIUM CHLOR 0.9% 1000 ML INJ 1,000 ML IV SCH (22:22)
[2017-06-18 22:52] LABS: HEMATOCRIT 24.2 % (39.0-51.0); REVIEW FLAG FINAL
[2017-06-18] MEDS: PANTOPRAZOLE SODIUM 40 MG VIAL IV SCH (23:00)
[2017-06-19] VITALS (17 sets, daily range): BP systolic 85–148; BP diastolic 55–92; PULSE 94–118; RESP 14–22; TEMP 97.8–98.6; O2SAT 94–99
[2017-06-19] MEDS: CHLORHEXIDINE GLUCONATE 2 % 1 PACK (2 CLOTHS) TOP SCH (04:00)
[2017-06-19] MEDS: SODIUM CHLOR 0.9% 1000 ML INJ 1,000 ML IV SCH ×2 (04:15→21:32)
[2017-06-19 06:26] LABS: AUTOMATED NEUTROPHIL # 11.5 TH/MM3 (1.8-7.7); BASOPHIL # 0.1 TH/MM3 (0-0.2); BASOPHIL % 0.4 % (0.0-2.0); EOSINOPHIL % 0.1 % (0.0-4.0); HEMATOCRIT 27.5 % (39.0-51.0); HEMO FLAGS DIFF FINAL; LYMPH % 11.7 % (9.0-44.0); LYMPHOCYTE # 1.7 TH/MM3 (1.0-4.8); MEAN CELL VOLUME 90.2 FL (80.0-100.0); MEAN CORPUSCULAR HEMOGLOBIN 31.4 PG (27.0-34.0); MEAN CORPUSCULAR HGB CONC 34.7 % (32.0-36.0); NEUT % 80.8 % (16.0-70.0); PLATELET COUNT 122 TH/MM3 (150-450); RED BLOOD COUNT 3.05 MIL/MM3 (4.50-5.90); RED CELL DISTRIBUTION WIDTH 13.5 % (11.6-17.2); WHITE BLOOD COUNT 14.2 TH/MM3 (4.0-11.0)
[2017-06-19 06:43] LABS: MAGNESIUM 1.7 MG/DL (1.5-2.5)
[2017-06-19 06:44] LABS: INDIRECT BILIRUBIN 0.2 MG/DL (0.0-0.8); TOTAL BILIRUBIN ADULT 0.3 MG/DL (0.2-1.0)
[2017-06-19 07:54] LABS: BICARBONATE 23.6 MEQ/L (21.0-32.0); POTASSIUM 3.5 MEQ/L (3.5-5.1)
[2017-06-19 08:02] LABS: INTERNATIONAL NORMALIZED RATIO 1.5 RATIO; PROTHROMBIN TIME - PATIENT 16.9 SEC (9.8-11.6)
--- NOTE | 2017-06-19 08:06 | HHI.CCPN ---
Subjective Remarks/Hospital Course 61-year-old male patient of the [place] with history of hypertension, DVT in the left lower extremity diagnosed in November, on Coumadin, who presents for evaluation of dyspnea. Symptoms started yesterday evening. He reports dyspnea with exertion which is new. While in triage he became diaphoretic and when his blood pressure was rechecked in the right upper extremity his blood pressure was 70s. The patient denies any chest pain, headache, blurred vision, focal weakness in the extremities, slurred speech, facial droop. He has been compliant with his Coumadin. He denies any obvious black or tarry stools, hematochezia, hematemesis, denies cough congestion, nausea or vomiting, abdominal pain, fevers or chills. While in the emergency department he became again diaphoretic and his H&H dropped from 8.9-7.9. He is now receiving 2 units of PRBC emergently. Subjective: 06/19: Tmax 98.6. No acute issues overnight the patient received 2 units in the emergency department hemoglobin pending this a.m.. The patient has remained hemodynamically stable with a MAP ranging from 61-70, however sinus tachycardia low 100s overnight. Echocardiogram, & ultrasound of extremities has been ordered, pending. No dyspnea noted, chest pain this a.m.. Objective Vital Signs Date Time Temp Pulse Resp B/P Pulse Ox O2 Delivery O2 Flow Rate FiO2 06/19/17 03:00 97.9 108 18 85/62 96 06/19/17 01:23 21 06/18/17 23:30 Room Air Intake and Output 06/18/17 06/18/17 06/19/17 08:00 16:00 00:00 Output Total 2200 ml Balance -2200 ml Result Diagram: 06/19/17 0523 06/18/171914 Imaging Last 24 hours Impressions Abdomen/Pelvis CT 06/18/172046 Signed Impressions: Service Date/Time: Sunday, June 18, 2017 21:10 - CONCLUSION: 1. Constipation. 2. Small fat containing umbilical hernia. 3. Bladder wall thickening. 4. Nonobstructing right renal calculus measures 3 mm. 5. Multiple hepatic and left renal cysts. Aly Mora MD Chest X-Ray 06/18/171905 Signed Impressions: Service Date/Time: Sunday, June 18, 2017 19:06 - CONCLUSION: No acute disease. Aly Mora MD Objective Remarks BP 110/72 HR 110 O2 sat 97% GENERAL: Well-nourished, well-developed patient, alert and responsive SKIN: Warm and dry. HEAD: Normocephalic. EYES: No scleral icterus. 3 mm brisk. No injection or drainage. NECK: Supple, trachea midline. No JVD or lymphadenopathy. CARDIOVASCULAR: Regular rate and rhythm without murmurs, gallops, or rubs. RESPIRATORY: Breath sounds equal bilaterally. No accessory muscle use. GASTROINTESTINAL: Abdomen soft, non-tender, nondistended. MUSCULOSKELETAL: No cyanosis, or edema. EXTREMITIES: No clubbing cyanosis or edema Procedures Pending IR for IVC filter placement Urinary Catheter: No Vascular Central Line Catheter: No A/P Assessment and Plan GI bleed - Reverse Coumadin with Kcentra and vitamin K, INR 1.5 - GI consult appreciated - IV Protonix BID - Transfuse as needed Anemia - Blood loss anemia - Transfuse for hemoglobin less than 8 -Follow H&H every 12 hours Acute kidney injury - Volume depleted - IV fluids resuscitation-normal saline 84 cc/hour - Monitor trend of creatinine and strict I's and O's DVT of lower extremity - Unable to continue anticoagulation - IR consult for IVC filter placement -Ultrasound Doppler bilateral upper and lower extremities Hypertension - Currently hypotensive we'll continue to hold all home meds -Obtain echo DVT GI prophylaxis - Teds SCDs - No pharmacological DVT prophylaxis due to acute GI bleed - IV Protonix BID Critical Care: Level 3 Dispo: Plan for placement of IVC filter, consultation with GI, no acute signs of bleeding will closely monitor H&H every 12 hours. Physician Erma Iraheta MD Jun 19, 2017 08:06
[2017-06-19] MEDS: SODIUM CHLORIDE 0.9% FLUSH 10 ML FLUSH SCH ×2 (09:00→21:58)
[2017-06-19] MEDS: DOCUSATE SODIUM 50 MG/SENNA 8.6 MG TAB PO SCH ×3 (09:00→21:59)
--- NOTE | 2017-06-19 09:03 | PD.CONS ---
HPI History of Present Illness This is a 61 year old with history of hypertension, DVT in the left lower extremity diagnosed in November, on Coumadin, who presents for evaluation of dyspnea and dizziness. Symptoms started yesterday evening. He reports he couldn't walk a short distance without getting short of breath. Monday, started having heart burn, so he took Rolaids and Vinegar, this continued through Monday, Monday, he noticed the shortness of breath with exertion. Reports one episode of vomiting while having a BM yesterday, states he was too dizzy to notice what color, but states, the stools were darker than usual. He also reports blurred vision in right eye. While in the ED, he became diaphoretic and was found to have hypotensive, with blood pressure in the 70s. Blood work revealed low hgb of 7.9 and received 2 units of PRBC emergently. He denies previous hx of this. Denies alcohol or NSAIDs. By report, last colonoscopy was more than 5 years ago. He denies abd pain, hematemesis, melena or hematochezia, or change in bowels. He reports chronic constipation, for which he takes Miralax once a week and daily Metamucil. Ct of abd/pelvis on (06/18/17) showed 1. Constipation. 2. Small fat containing umbilical hernia. 3. Bladder wall thickening. 4. Nonobstructing right renal calculus measures 3 mm. 5. Multiple hepatic and left renal cysts. (Mariya Warner) PFSH Past Medical History DVT HTN Left shoulder arthritis Past Surgical History Surgery of the neck Abdominal hernia repair Rotator cuff repair right shoulder (Mariya Warner) Coded Allergies: No Known Allergies (Unverified , 06/18/17) Medications Current Medications Medications (Trade) Dose Ordered Sig/Katya Route Start Time Stop Time Status Last Admin Sodium Chloride 2 ml 2 ml UNSCH PRN IVF 06/18/17 19:15 Sodium Chloride 250 ml @ 15 mls/hr ONCE ONCE IV 06/18/17 20:00 06/19/17 12:39 06/18/17 21:56 (NS 1000 ml Inj) 1,000 ml @ 84 mls/hr [id number] IV 06/18/17 21:42 06/18/17 22:22 (NS Flush) 2 ml UNSCH PRN .XX 06/18/17 21:45 (NS Flush) 2 ml BID .XX 06/19/17 09:00 (Tylenol) 650 mg Q6H PRN PO 06/18/17 21:45 (Morphine Inj) 2 mg Q2H PRN IV 06/18/17 21:45 (Protonix Inj) 40 mg Q12H IV 06/18/17 23:00 06/18/17 23:00 (Zofran Inj) 4 mg Q6H PRN IV 06/18/17 21:45 Miscellaneous Information 1 [id number] XX 06/18/17 21:45 (Chlorhexidine 2% Cloth) 3 pack Taper DAILY@04 TOP 06/19/17 04:00 06/15/18 03:59 06/19/17 04:00 (Chlorhexidine 2% Cloth) 3 pack UNSCH PRN TOP 06/18/17 21:45 (Neva-Colace) 1 tab BID PO 06/19/17 09:00 (Milk Of Magnesia Liq) 30 ml Q12H PRN PO 06/18/17 21:45 (Senokot) 17.2 mg Q12H PRN PO 06/18/17 21:45 (Dulcolax Supp) 10 mg DAILY PRN RECTAL 06/18/17 21:45 (Lactulose Liq) 30 ml DAILY PRN PO 06/18/17 21:45 Family History No family hx of colon cancer Social History No alcohol No smoking No illicit drug use (Mariya Warner) Review of Systems Constitutional: COMPLAINS OF: Diaphoretic episodes, Dizziness Endocrine: DENIES: Polyuria Eyes: COMPLAINS OF: Blurred vision Ears, nose, mouth, throat: DENIES: Hoarseness Respiratory: COMPLAINS OF: Shortness of breath Cardiovascular: COMPLAINS OF: Syncope, DENIES: Lower Extremity Edema Gastrointestinal: COMPLAINS OF: Constipation, Nausea, Vomiting, Heartburn, DENIES: Abdominal pain, Black stools, Bloody stools, Diarrhea, Difficulty Swallowing, Odynophagia, Swelling of Abdomen, Hematemesis Genitourinary: DENIES: Hematuria Musculoskeletal: DENIES: Back pain Integumentary: DENIES: Jaundice Hematologic/lymphatic: DENIES: Bruising Immunologic/allergic: DENIES: Eczema Neurologic: DENIES: Abnormal gait Psychiatric: DENIES: Anxiety (Mariya Warner) GI Exam Vitals I&O Vital Signs Date Time Temp Pulse Resp B/P Pulse Ox O2 Delivery O2 Flow Rate FiO2 06/19/17 03:00 97.9 108 18 85/62 96 06/19/17 03:00 108 06/19/17 01:23 96 21 06/19/17 01:20 97.9 108 20 85/62 96 06/19/17 00:08 98.6 115 22 137/83 95 06/18/17 23:58 102/61 06/18/17 23:30 106 18 85/50 96 Room Air 06/18/17 23:12 116 18 79/52 98 Room Air 06/18/17 23:00 97 06/18/17 22:12 97.9 112 20 92/55 99 Room Air 06/18/17 21:56 97.7 117 18 106/58 98 Room Air 06/18/17 21:05 109 20 124/64 100 Room Air 06/18/17 20:25 104 19 82/58 95 Room Air 06/18/17 19:57 99 14 78/52 96 Room Air 06/18/17 19:11 15 96 Room Air 06/18/17 19:03 101 15 91/63 98 Room Air 06/18/17 18:54 98.5 87 18 142/89 99 I/O 06/18/17 06/18/17 06/18/17 06/19/17 06/19/17 06/19/17 07:00 15:00 23:00 07:00 15:00 23:00 Intake Total 949 ml Output Total 2200 ml 700 ml Balance -2200 ml 249 ml Intake Oral 100 ml IV Total 349 ml Packed Cells 500 ml Output Urine Total 2200 ml 700 ml Stool Total 0 ml Imaging Last Impressions Abdomen/Pelvis CT 06/18/172046 Signed Impressions: Service Date/Time: Sunday, June 18, 2017 21:10 - CONCLUSION: 1. Constipation. 2. Small fat containing umbilical hernia. 3. Bladder wall thickening. 4. Nonobstructing right renal calculus measures 3 mm. 5. Multiple hepatic and left renal cysts. Aly Mora MD Chest X-Ray 06/18/17 190 Signed Impressions: Service Date/Time: [place], June 18, 2017 19:06 - CONCLUSION: No acute disease. Aly Mora MD Laboratory Test 06/18/17 06/18/17 06/18/17 06/18/17 12:18 19:15 20:02 20:15 Blood Type A POSITIVE A POSITIVE White Blood Count 15.1 TH/MM3 Red Blood Count 3.15 MIL/MM3 Hemoglobin 9.8 GM/DL Hematocrit 28.6 % Mean Corpuscular Volume 90.7 FL Mean Corpuscular Hemoglobin 31.1 PG Mean Corpuscular Hemoglobin 34.3 % Concent Red Cell Distribution Width 12.6 % Platelet Count 191 TH/MM3 Mean Platelet Volume 9.7 FL Neutrophils (%) (Auto) 86.0 % Lymphocytes (%) (Auto) 9.8 % Monocytes (%) (Auto) 3.8 % Eosinophils (%) (Auto) 0.0 % Basophils (%) (Auto) 0.4 % Neutrophils # (Auto) 13.0 TH/MM3 Lymphocytes # (Auto) 1.5 TH/MM3 Monocytes # (Auto) 0.6 TH/MM3 Eosinophils # (Auto) 0.0 TH/MM3 Basophils # (Auto) 0.1 TH/MM3 CBC Comment DIFF FINAL Differential Comment Prothrombin Time 38.9 SEC Prothromb Time International 3.3 RATIO Ratio Activated Partial 34.6 SEC Thromboplast Time Sodium Level 135 MEQ/L Potassium Level 3.8 MEQ/L Chloride Level 104 MEQ/L Carbon Dioxide Level 22.7 MEQ/L Anion Gap 8 MEQ/L Blood Urea Nitrogen 64 MG/DL Creatinine 1.27 MG/DL Estimat Glomerular Filtration 69 ML/MIN Rate Random Glucose 165 MG/DL Lactic Acid Level 2.4 mmol/L Calcium Level 9.1 MG/DL Magnesium Level 1.8 MG/DL Total Bilirubin 0.3 MG/DL Aspartate Amino Transf 12 U/L (AST/SGOT) Alanine Aminotransferase 30 U/L (ALT/SGPT) Alkaline Phosphatase 44 U/L Total Creatine Kinase 106 U/L Creatine Kinase MB LESS THAN 0.5 NG/ML Troponin I LESS THAN 0.02 NG/ML B-Type Natriuretic Peptide 13 PG/ML Total Protein 6.3 GM/DL Albumin 3.0 GM/DL Crossmatch Leukocyte-Reduced Red Blood Cells Blood Bank Comment Antibody Screen NEGATIVE Test 06/18/17 06/18/17 06/19/17 06/19/17 22:00 22:37 05:23 07:16 Hemoglobin 7.9 GM/DL 9.6 GM/DL Hematocrit 24.2 % 27.5 % Lactic Acid Level 2.4 mmol/L White Blood Count 14.2 TH/MM3 Red Blood Count 3.05 MIL/MM3 Mean Corpuscular Volume 90.2 FL Mean Corpuscular Hemoglobin 31.4 PG Mean Corpuscular Hemoglobin 34.7 % Concent Red Cell Distribution Width 13.5 % Platelet Count 122 TH/MM3 Mean Platelet Volume 9.5 FL Neutrophils (%) (Auto) 80.8 % Lymphocytes (%) (Auto) 11.7 % Monocytes (%) (Auto) 7.0 % Eosinophils (%) (Auto) 0.1 % Basophils (%) (Auto) 0.4 % Neutrophils # (Auto) 11.5 TH/MM3 Lymphocytes # (Auto) 1.7 TH/MM3 Monocytes # (Auto) 1.0 TH/MM3 Eosinophils # (Auto) 0.0 TH/MM3 Basophils # (Auto) 0.1 TH/MM3 CBC Comment DIFF FINAL Differential Comment Sodium Level 144 MEQ/L Potassium Level 3.5 MEQ/L Chloride Level 112 MEQ/L Carbon Dioxide Level 23.6 MEQ/L Anion Gap 8 MEQ/L Blood Urea Nitrogen 54 MG/DL Creatinine 1.04 MG/DL Estimat Glomerular Filtration 87 ML/MIN Rate Random Glucose 120 MG/DL Calcium Level 7.7 MG/DL Phosphorus Level 2.6 MG/DL Magnesium Level 1.7 MG/DL Total Bilirubin 0.3 MG/DL Direct Bilirubin 0.1 MG/DL Indirect Bilirubin 0.2 MG/DL Aspartate Amino Transf 11 U/L (AST/SGOT) Alanine Aminotransferase 23 U/L (ALT/SGPT) Alkaline Phosphatase 34 U/L Total Protein 5.1 GM/DL Albumin 2.5 GM/DL Prothrombin Time 16.9 SEC Prothromb Time International 1.5 RATIO Ratio Date/Time Procedure Status Source Growth 06/18/17 19:30 Aerobic Blood Culture Received Blood Peripheral Pending 06/18/17 19:30 Anaerobic Blood Culture Received Blood Peripheral Pending Physical Examination HEENT: normocephalic; atraumatic; no jaundice. NECK: Neck is supple, no JVD, no lymphadenopathy. CHEST: Chest is clear to auscultation and percussion. CARDIAC: Regular rate and rhythm with no murmur gallop or rubs. ABDOMEN: Soft, nondistended, nontender; no hepatosplenomegaly; bowel sounds are present in all four quadrants. EXTREMITIES: No clubbing, cyanosis, or edema. SKIN: Normal; no rash; no jaundice. VISE HAND: No focal deficits; alert and oriented times three. (Mariya Warner) Assessment and Plan Plan - Acute anemia/possible GI bleed- Symptomatic with dizziness, dyspnea, acute onset of heart burn, hypotensive. hgb was 7.9 on admission. Today hgb is 9.6 s/ p 2 units of PRBC emergently Ct of abd/pelvis on (06/18/17) showed 1. Constipation. 2. Small fat containing umbilical hernia. 3. Bladder wall thickening. 4. Nonobstructing right renal calculus measures 3 mm. 5. Multiple hepatic and left renal cysts. Denies alcohol or NSAIDs. By report, last colonoscopy was more than 5 years ago. One episode of vomiting and dark stools, but not exactly sure what color due to dizziness at the time. He is now hemodynamically stable, on PPI, Coumadin on hold. EGD today - Chronic constipation, for which he takes Miralax once a week and daily Metamucil. Senokot and lactulose ordered - JERI- BUN 54, which could indicate upper GI bleed - Acute onset of heart burn- started having heart burn, so he took Rolaids and Vinegar, this continued through Monday - DVT in Nov. Coumadin on hold, IR consulted for IVC filter Plan: - NPO - EGD today - Obtain consents - Cont. PPI - Monitor hh - Transfuse as needed - If above negative, consider colonoscopy - Cont. bowel regimen - Supportive care - Patient seen and examined by Dr. Alexandre and myself and this note is written on his behalf (Mariya Warner) Physician Comments Patient seen and examined Agree with above Continue with current supportive care Monitor labs and transfuse as needed Plan for an EGD today if negative will pursue colonoscopy if negative patient will need outpatient capsule endoscopy (Kirit Alexandre MD) Mariya Warner Jun 19, 2017 09:03 Kirit Alexandre MD Jun 19, 2017 10:00
[2017-06-19] MEDS ORDERED: PROPOFOL 200 MG/20 ML AMP IV ONE (09:36)
[2017-06-19] MEDS ORDERED: PEG (High)/E-LYTE SOLN 4000 ML BTL PO ONE (10:00)
--- NOTE | 2017-06-19 10:02 | PD.PROCEDR ---
GI Procedure REFERRING PHYSICIAN CARYN PROCEDURE PERFORMED EGD with biopsy INDICATION FOR PROCEDURE Anemia PROCEDURE: The procedure, risks and benefits were discussed with Mr. Cannon and informed consent was obtained. Anesthesia sedated him with Diprivan. He was placed in the left lateral decubitus position. EGD: The Pentax videoscope was introduced through the oropharynx and advanced to the second portion of the duodenum under direct visualization. Retroflexion was performed in the stomach. FINDINGS: The esophagus this was normal Stomach there was some mild punctate erythema in the antrum but no ulcerations or erosions retroflexion was unremarkable Duodenum this was normal ESTIMATED BLOOD LOSS: None SPECIMENS REMOVED: Antral biopsy COMPLICATIONS: None IMPRESSION: Mild gastritis PLAN: Await biopsy Continue supportive care Plan for colonoscopy tomorrow Kirit Alexandre MD Jun 19, 2017 10:02
[2017-06-19] MEDS ORDERED: DO NOT ADM ANY ANTICOAGULANT DRUGS PRN (10:15)
[2017-06-19] MEDS: PANTOPRAZOLE SODIUM 40 MG VIAL IV SCH (11:00)
--- NOTE | 2017-06-19 15:31 | RADRPT ---
EXAM DATE/TIME: 06/19/2017 13:35 [facility] COMPARISON: No previous studies available for comparison. INDICATIONS : Bilateral leg swelling. MEDICAL HISTORY : Hypercholesterolemia. Hepatitis C. Arthritis. Intermittent feet numbness. Chest pain. HTN. Dyspnea. I ntermittent constipation. GERD. Clotting problems. Anticoagulant therapy, Warfarin. SURGICAL HISTORY : Hernia repair. Rotator cuff surgery. Spinal infusion. ENCOUNTER: Initial ACUITY: 1 day PAIN SCORE: 3/10 LOCATION: Bilateral leg. TECHNIQUE: Venous ultrasound of the left and right leg was performed from the inguinal ligament to the proximal calf. Real-time, color Doppler and spectral tracing, compression and augmentation techniques were us ed. FINDINGS: RIGHT LEG: There is normal compressibility of the deep venous system from the inguinal region to the proximal ca lf. No echogenic clot is seen in the lumen of the common femoral, femoral, popliteal, and posterior tibial veins. There is a normal response of the venous system to proximal and distal augmentation an d respiration. LEFT LEG: There is normal compressibility of the deep venous system from the inguinal region to the proximal ca lf. No echogenic clot is seen in the lumen of the common femoral, femoral, popliteal, and posterior tibial veins. There is a normal response of the venous system to proximal and distal augmentation an d respiration. CONCLUSION: Negative for deep venous thrombosis. Zheng Forte MD FACR on June 19, 2017 at 15:29 Board Certified Radiologist. This report was verified electronically.
--- NOTE | 2017-06-19 15:41 | RADRPT ---
EXAM DATE/TIME: 06/19/2017 14:25 [facility] COMPARISON: No previous studies available for comparison. INDICATIONS : Bilateral arm swelling. MEDICAL HISTORY : Hypercholesterolemia. Hepatitis C. Arthritis. Intermittent feet numbness. Chest pain. HTN. Dyspnea. I ntermittent constipation. GERD. Clotting problems. Anticoagulant therapy, Warfarin. SURGICAL HISTORY : Hernia repair. Rotator cuff surgery. Spinal infusion. ENCOUNTER: Initial ACUITY: 1 day PAIN SCORE: 3/10 LOCATION: Bilateral arm. FINDINGS: RIGHT UPPER EXTREMITY: There is occlusive thrombus associated with an IV site in the cephalic vein. The deep venous structur es are patent throughout. LEFT UPPER EXTREMITY: Occlusive thrombus is present associated with an IV site in the cephalic vein. The deep venous struct ures are patent throughout. CONCLUSION: Bilateral cephalic venous superficial thrombosis. No evidence of deep venous thrombosis Feliciano Echeverria MD on June 19, 2017 at 15:38 Board Certified Radiologist. This report was verified electronically.
[2017-06-19 17:48] LABS: HEMATOCRIT 27.7 % (39.0-51.0)
[2017-06-19 17:51] LABS: REVIEW FLAG FINAL
[2017-06-19 19:59] LABS: HEMATOCRIT 28.3 % (39.0-51.0); REVIEW FLAG FINAL
[2017-06-19 20:20] LABS: LDH SERUM 145 U/L (87-241)
--- NOTE | 2017-06-19 21:47 | MB ---
cc: TOMI MELCHOR DATE OF CONSULTATION 06/19/2017 DATE OF 1955 REASON FOR CONSULTATION Patient with a history of lower extremity DVT, who now presents with acute drop in hemoglobin and concern for GI bleeding. HISTORY OF PRESENT ILLNESS This is a 60-year-old male who has a past medical history of hypertension, osteoarthritis and diagnosis of DVT. He presented with left lower extremity swelling in November of 2016 and was found to have occlusive thrombus. He was started on anticoagulation and discharged home on Coumadin. He now presents to the emergency department with lightheadedness and dyspnea and generalized weakness. He was unable to walk even short distance and was getting significantly dyspneic. He also had an episode of vomiting. In the emergency room the patient was found to be diaphoretic and hypotensive. His CBC revealed a hemoglobin of 9.8, WBC was 15.1 and platelet count 191. A followup CBC showed hemoglobin of 7.9. The patient is being transfused packed red blood cells. He has no past medical history of GI bleeding. He does not endorse any bright red blood per rectum or melena. The patient is currently being evaluated by GI. His anticoagulation is on hold. Upon review of his labs his hemoglobin was 12.5 and at the time of discharge it was 13.3. This is a significant drop from his prior admission. REVIEW OF SYSTEMS A comprehensive 14-point review of systems was completed which is negative except as described in HPI. PAST MEDICAL HISTORY 1. Deep venous thrombosis. 2. Hypertension. 3. Left shoulder osteoarthritis. PAST SURGICAL HISTORY 1. History of neck surgery. 2. Abdominal hernia repair. 3. Rotator cuff surgery of the right shoulder. MEDICATIONS 1. Colace 1 tablet p.o. b.i.d. 2. Pantoprazole 40 mg IV q.12 h. 3. Tylenol 650 mg one tablet p.o. q.6h as needed. 4. Morphine 2 mg IV q.2h p.r.n. 5. Zofran 4 mg IV q.6h. 6. DuoNeb 1 ampule q.2h INH p.r.n. 7. Senokot 17.2 mg p.o. q.12h. ALLERGIES NO KNOWN DRUG ALLERGIES. FAMILY HISTORY The family history was reviewed. No history of malignancies. No history of colon cancer. SOCIAL HISTORY Denies any alcohol abuse. No tobacco abuse. No illicit drug use. PHYSICAL EXAMINATION VITAL SIGNS: Blood pressure is 146/74, pulse is in the 100s. Temperature is 98.4, O2 sats are 97% on 2 liters of oxygen. GENERAL: In no apparent distress. HEENT: Pupils are equal, round, react to light. EOMI. No oral thrush. No oral lesion. NECK: Supple. No JVD, no bruits. No lymphadenopathy. CHEST: Clear to auscultation bilaterally. CARDIOVASCULAR: S1-S2 regular rate and rhythm. ABDOMEN: Soft, nontender, nondistended. Bowel sounds are present. EXTREMITIES: Without any edema, erythema or cyanosis. SKIN: Without any petechiae, lesion or bruises. NEUROLOGIC: No focal deficits. PSYCHIATRIC: Mood and affect is appropriate. IMAGING STUDIES CT of the abdomen and pelvis was completed which does not show any acute abnormalities. There is a umbilical hernia. There is bladder wall thickening which is nonspecific. There is nonobstructing right renal calculus 3 mm in size. There are hepatic and left renal cysts. He had Doppler ultrasound of lower extremities which was negative for DVT. Doppler ultrasound the upper extremities shows bilateral cephalic venous superficial thrombus. There is no deep vein thrombosis. ASSESSMENT/PLAN This is a 61-year-old male with a past medical history of hypertension, osteoarthritis and DVT of left lower extremity who presents with dyspnea, shortness of breath, hypertension and was found to be severely anemic with hemoglobin of 7.9. There is a concern for underlying GI bleed. His hemoglobin was completely normal at the time of discharge in December. 1. Severe anemia and concern for GI bleeding. Needs GI workup, obtain stool Hemoccult. It appears that GI is planning to do an upper EGD. He may also need a colonoscopy. The patient is being transfused 2 units of packed red blood cells in the setting of anemia and possible GI bleed. I would not recommend starting anticoagulation at this time. I have reviewed his ultrasound of lower extremities and there is no active blood clot. I would recommend placing an IVC filter to prevent any new clots that could potentially dislodge and cause pulmonary embolism in this patient who has had DVT in the past. I would recommend a retrievable IVC filter. 2. We will obtain testing for B12 and folate levels. Iron studies will not be reliable at this time since he has blood transfusion. We will check LDH, haptoglobin and a direct Diego test. Thank you for allowing me to participate in the care of this patient. I will continue to follow this patient along. MD JEREMIAH Middleton/CAMI /4:06 PM /9:27 PM TONIO
[2017-06-19 23:41] LABS: HEMATOCRIT 26.7 % (39.0-51.0); REVIEW FLAG FINAL
[2017-06-20] VITALS (12 sets, daily range): BP systolic 130–140; BP diastolic 70–84; PULSE 97–126; RESP 14–20; TEMP 98.2–98.4; O2SAT 97–100
[2017-06-20] MEDS: PANTOPRAZOLE SODIUM 40 MG VIAL IV SCH ×3 (02:00→22:17)
[2017-06-20] MEDS: CHLORHEXIDINE GLUCONATE 2 % 1 PACK (2 CLOTHS) TOP SCH (04:00)
[2017-06-20 06:56] LABS: HEMATOCRIT 25.5 % (39.0-51.0); MEAN CELL VOLUME 89.8 FL (80.0-100.0); MEAN CORPUSCULAR HEMOGLOBIN 31.1 PG (27.0-34.0); MEAN CORPUSCULAR HGB CONC 34.7 % (32.0-36.0); PLATELET COUNT 119 TH/MM3 (150-450); RED BLOOD COUNT 2.84 MIL/MM3 (4.50-5.90); RED CELL DISTRIBUTION WIDTH 13.4 % (11.6-17.2); REVIEW FLAG FINAL; WHITE BLOOD COUNT 11.3 TH/MM3 (4.0-11.0)
[2017-06-20 07:36] LABS: BICARBONATE 25.3 MEQ/L (21.0-32.0); MAGNESIUM 1.8 MG/DL (1.5-2.5)
[2017-06-20 07:49] LABS: CALCIUM-PROTEIN CORRECTED 8.3 MG/DL (8.5-10.1)
[2017-06-20] MEDS: DOCUSATE SODIUM 50 MG/SENNA 8.6 MG TAB PO SCH ×2 (09:00→20:54)
[2017-06-20] MEDS: SODIUM CHLOR 0.9% 1000 ML INJ 1,000 ML IV SCH (09:27)
[2017-06-20] MEDS: SODIUM CHLORIDE 0.9% FLUSH 10 ML FLUSH SCH ×2 (09:39→20:54)
--- NOTE | 2017-06-20 09:55 | PD.ONC.PN ---
Subjective Subjective Remarks Afebrile overnight. Patient resting in bed in nad. About to go down for IVC filter placement. Also having colonoscopy today. hoping to go home soon. Objective Data Date Time Temp Pulse Resp B/P Pulse Ox O2 Delivery O2 Flow Rate FiO2 06/20/17 07:40 97 Nasal Cannula 2.00 06/20/17 06:00 102 06/20/17 05:00 100 06/20/17 04:33 103 06/20/17 03:00 98.2 103 14 138/84 100 06/20/17 02:00 110 06/20/17 01:00 126 06/20/17 00:00 106 06/19/17 23:00 104 06/19/17 23:00 98.5 109 14 148/89 99 06/19/17 22:00 112 06/19/17 21:00 118 06/19/17 20:00 106 06/19/17 19:00 101 06/19/17 19:00 97.8 111 14 123/92 98 06/19/17 17:00 102 06/19/17 16:00 98.6 108 20 127/80 99 06/19/17 16:00 114 06/19/17 15:00 100 06/19/17 14:00 94 06/19/17 13:00 100 06/19/17 12:00 100 06/19/17 12:00 98.4 105 20 146/74 97 06/19/17 11:00 101 06/19/17 10:30 98 16 119/65 98 Room Air 06/19/17 10:15 100 16 115/64 100 06/19/17 10:00 102 16 105/67 100 Nasal Cannula 2 06/20/17 06/20/17 06/20/17 07:00 15:00 23:00 Intake Total 1018 ml Output Total 875 ml Balance 143 ml Result Diagram: 06/20/1730 06/20/17 06 Laboratory Results Laboratory Tests Test 06/19/17 06/19/17 06/19/17 06/19/17 16:28 17:16 19:30 22:35 Blood Type A POSITIVE Direct Antiglobulin Test NEGATIVE (Dominique) Hemoglobin 9.9 GM/DL 9.4 GM/DL 9.4 GM/DL Hematocrit 27.7 % 28.3 % 26.7 % Haptoglobin 144 MG/DL Lactate Dehydrogenase 145 U/L Vitamin B12 Level 383 PG/ML Test 06/20/17 06:30 White Blood Count 11.3 TH/MM3 Red Blood Count 2.84 MIL/MM3 Hemoglobin 8.8 GM/DL Hematocrit 25.5 % Mean Corpuscular Volume 89.8 FL Mean Corpuscular Hemoglobin 31.1 PG Mean Corpuscular Hemoglobin 34.7 % Concent Red Cell Distribution Width 13.4 % Platelet Count 119 TH/MM3 Mean Platelet Volume 9.4 FL Sodium Level 146 MEQ/L Potassium Level 3.0 MEQ/L Chloride Level 112 MEQ/L Carbon Dioxide Level 25.3 MEQ/L Anion Gap 9 MEQ/L Blood Urea Nitrogen 20 MG/DL Creatinine 0.84 MG/DL Estimat Glomerular Filtration 112 ML/MIN Rate Random Glucose 104 MG/DL Calcium Level 7.4 MG/DL Protein Corrected Calcium 8.3 MG/DL Phosphorus Level 2.0 MG/DL Magnesium Level 1.8 MG/DL Total Protein 5.5 GM/DL Culture Results Microbiology Date/Time Procedure Status Source Growth 06/18/17 19:25 Aerobic Blood Culture - Preliminary Resulted Blood Peripheral NO GROWTH IN 1 DAY 06/18/17 19:25 Anaerobic Blood Culture - Preliminary Resulted Blood Peripheral NO GROWTH IN 1 DAY 06/18/17 19:30 Aerobic Blood Culture - Preliminary Resulted Blood Peripheral NO GROWTH IN 1 DAY 06/18/17 19:30 Anaerobic Blood Culture - Preliminary Resulted Blood Peripheral NO GROWTH IN 1 DAY Administered Medications Medications (Trade) Dose Ordered Sig/Katya Route PRN Reason Start Time Stop Time Status Last Admin Dose Admin Sodium Chloride (NS 1000 ml Inj) 1,000 ml @ 84 mls/hr [id number] IV 06/18/17 21:42 06/20/17 09:27 Sodium Chloride (NS Flush) 2 ml BID .XX 06/19/17 09:00 06/20/17 09:39 Pantoprazole Sodium (Protonix Inj) 40 mg Q12H IV 06/18/17 23:00 06/20/17 02:00 Chlorhexidine Gluconate (Chlorhexidine 2% Cloth) 3 pack Taper DAILY@04 TOP 06/19/17 04:00 06/15/18 03:59 06/19/17 04:00 Objective Remarks GENERAL: Middle aged male supine in bed in nad. SKIN: Warm and dry. HEAD: Normocephalic. EYES: No injection or drainage. NECK: Supple, trachea midline. CARDIOVASCULAR: Regular rate and rhythm RESPIRATORY: Breath sounds equal bilaterally. No accessory muscle use. GASTROINTESTINAL: Abdomen soft, non-tender, nondistended. EXTREMITIES: No cyanosis NEUROLOGICAL: No obvious focal deficit. Awake, alert, and oriented x3. Assessment/Plan Problem List: (1) DVT (deep venous thrombosis) Status: Acute Plan: -- would not recommend starting anticoagulation at this time. --ultrasound of lower extremities shows no no active blood clot. --would recommend placing an IVC filter to prevent any new clots that could potentially dislodge and cause pulmonary embolism in this patient who has had DVT in the past. --would recommend a retrievable IVC filter. (2) Acute GI bleeding Status: Acute Plan: -- B12 WNL --no sign of hemolysis. LDH/haptoglobin WNL --dominique negative --Iron studies will not be reliable at this time since he has blood transfusion. --Severe anemia and concern for GI bleeding. --EGD, 06/19 showed no bleeding. --colonoscopy 06/20 Assessment 61y/o male with a history of lower extremity DVT, who now presents with acute drop in hemoglobin and concern for GI bleeding. history of hypertension, osteoarthritis and DVT of left lower extremity -- presented with left lower extremity swelling in November of 2016 and was found to have occlusive thrombus. He was started on anticoagulation and discharged home on Coumadin. He now presents to the emergency department with lightheadedness and dyspnea and generalized weakness. Plan 1. monitor CBC 2. await colonoscopy 3. hold all AC Attending Statement The exam, history, and the medical decision-making described in the above note were completed with the assistance of the mid-level provider. I reviewed and agree with the findings presented. I attest that I had a [id number] encounter with the patient on the same day, and personally performed and documented my assessment and findings in the medical record. Problem Qualifiers (1) DVT (deep venous thrombosis): Sharee Lema Jun 20, 2017 09:55 Frank Rasmussen MD Jun 20, 2017 22:53
--- NOTE | 2017-06-20 10:41 | HHI.PR ---
Subjective Remarks Patient reports is feeling okay. No nausea or vomiting. Has been having clear bowel movements. Will have colonoscopy and IVC filter placement today. Objective Vitals Vital Signs Date Time Temp Pulse Resp B/P Pulse Ox O2 Delivery O2 Flow Rate FiO2 06/20/17 07:40 97 Nasal Cannula 2.00 06/20/17 06:00 102 06/20/17 05:00 100 06/20/17 04:33 103 06/20/17 03:00 98.2 103 14 138/84 100 06/20/17 02:00 110 06/20/17 01:00 126 06/20/17 00:00 106 06/19/17 23:00 104 06/19/17 23:00 98.5 109 14 148/89 99 06/19/17 22:00 112 06/19/17 21:00 118 06/19/17 20:00 106 06/19/17 19:00 101 06/19/17 19:00 97.8 111 14 123/92 98 06/19/17 17:00 102 06/19/17 16:00 98.6 108 20 127/80 99 06/19/17 16:00 114 06/19/17 15:00 100 06/19/17 14:00 94 06/19/17 13:00 100 06/19/17 12:00 100 06/19/17 12:00 98.4 105 20 146/74 97 06/19/17 11:00 101 I/O 06/19/17 06/19/17 06/19/17 06/20/17 06/20/17 06/20/17 06:59 14:59 22:59 06:59 14:59 22:59 Intake Total 949 ml 50 ml 1018 ml Output Total 700 ml 400 ml 875 ml Balance 249 ml -350 ml 143 ml Intake Oral 100 ml 682 ml IV Total 349 ml 50 ml 336 ml Packed Cells 500 ml Output Urine Total 700 ml 400 ml 875 ml Stool Total 0 ml # Bowel Movements 2 Result Diagram: 06/20/1730 06/20/1730 Imaging Last Impressions Upper Extremity Ultrasound 06/19/17 0000 Signed Impressions: Service Date/Time: Monday, June 19, 2017 14:25 - CONCLUSION: Bilateral cephalic venous superficial thrombosis. No evidence of deep venous thrombosis Feliciano Echeverria MD Lower Extremity Ultrasound 06/19/17 0000 Signed Impressions: Service Date/Time: Monday, June 19, 2017 13:35 - CONCLUSION: Negative for deep venous thrombosis. Zheng Forte MD FACR Abdomen/Pelvis CT 06/18/172046 Signed Impressions: Service Date/Time: Sunday, June 18, 2017 21:10 - CONCLUSION: 1. Constipation. 2. Small fat containing umbilical hernia. 3. Bladder wall thickening. 4. Nonobstructing right renal calculus measures 3 mm. 5. Multiple hepatic and left renal cysts. Aly Mora MD Chest X-Ray 06/18/[id number] Signed Impressions: Service Date/Time: Sunday, June 18, 2017 19:06 - CONCLUSION: No acute disease. Aly Mora MD Objective Remarks GENERAL: This is a well-nourished, well-developed patient, in no apparent distress. CARDIOVASCULAR: Normal rate and regular rhythm without murmurs, gallops, or rubs. RESPIRATORY: Good respiratory efforts. Breath sounds equal and clear to auscultation bilaterally. GASTROINTESTINAL: Abdomen soft, non-tender, non-distended. Normal active bowel sounds MUSCULOSKELETAL: Extremities without cyanosis, or edema. NEURO: Alert & Oriented x4 to person, place, time, situation. Moves all ext x4 PSYCH: Appropriate mood and affect. Procedures Pending IR for IVC filter placement A/P Assessment and Plan 61-year-old male with a history of lower extremity DVT on Coumadin who presented with symptomatic anemia and concern for GI bleeding. Patient is status post ICU course. Probable GI bleed - Coumadin reversed with Kcentra and vitamin K, INR 1.5 - GI following. Status post EGD which showed gastritis. Plan for colonoscopy today. - IV Protonix BID - Transfuse as needed Symptomatic Anemia, likely secondary to blood loss from GI source. Patient admits he had one episode of black stool prior to coming to the hospital. - Transfuse for hemoglobin less than 8 -Follow H&H every 12 hours Acute kidney injury: Resolved with IV fluid. - Monitor trend of creatinine and strict I's and O's DVT of lower extremity - Unable to continue anticoagulation - Hematology following. IR consult for IVC filter placement - Ultrasound Doppler bilateral upper extremities shows bilateral cephalic superficial vein thrombosis and lower extremities Dopplers are negative Hypertension -Initially hypotensive. Lisinopril, Coreg, and Lasix on hold. Blood pressure improving, slightly tachycardic. -2-D echo pending - Resume Coreg at a lower dose, 3.125 mg twice a day. Continue to monitor. History of CHF: Lasix, Coreg, lisinopril on hold as above due to volume depletion and hypotension. Reintroduce CHF meds as tolerated. Start with Coreg 3.125 mg twice a day DC IV fluids. Hypokalemia: Replace and monitor DVT GI prophylaxis - Teds SCDs - No pharmacological DVT prophylaxis due to acute GI bleed - IV Protonix BID Avtar Carrington MD Jun 20, 2017 10:41
[2017-06-20] MEDS ORDERED: LORazepam 2 MG/ML VIAL ONE (10:50)
[2017-06-20] MEDS ORDERED: LORazepam 2 MG/ML VIAL IV ONE (11:00)
[2017-06-20] MEDS ORDERED: IOHEXOL 350 MG/ML 50 ML BTL (for RAD DIAG) IV ONE (11:17)
--- NOTE | 2017-06-20 12:00 | PD.RAD ---
Post Procedure Progress Note Pre Procedure Diagnosis: (1) DVT (deep venous thrombosis) (2) Acute GI bleeding Post Procedure Diagnosis: (1) DVT (deep venous thrombosis) (2) Acute GI bleeding Procedure Date: Jun 20, 2017 Supervising Radiologist: Villa Gallagher JR Proceduralist/Assist: Grant Clements, RT(R), Nilsa Abreu RT(R) Anesthesia: Other Plan of Activity Patient to Unit: ROPU Patient Condition: Good See PACS Report for procedural detail/treatment Vascular-Venous Procedure Procedure 1 Procedure(s): Retrievable IVC Filter Access Access Site(s): Right Femoral Vein Findings: Placed retrievable filter in IVC. Plan Filter can be removed up to one year from today's date. This was discussed with the patient. Jr. Elliott,Villa Mcfarlane MD Jun 20, 2017 12:00
[2017-06-20] MEDS: POTASSIUM CHLOR 20 MEQ PREMIX 100 ML IV SCH ×2 (13:26→14:00)
[2017-06-20] MEDS ORDERED: PROPOFOL 200 MG/20 ML AMP IV ONE (15:48)
--- NOTE | 2017-06-20 16:21 | PD.PROCEDR ---
GI Procedure REFERRING PHYSICIAN Dr. Gordon PROCEDURE PERFORMED Colonoscopy INDICATION FOR PROCEDURE Anemia PROCEDURE: The procedure, risks and benefits were discussed with Mr. Cannon and informed consent was obtained. Anesthesia sedated him with Diprivan. He was placed in the left lateral decubitus position. Colonoscopy: The Pentax videoscope was introduced through the rectum and advanced to cecum where the ileocecal valve and appendiceal orifice were identified. Retroflexion was performed in the rectum. Colonic prep was good FINDINGS: Colonic withdrawal time greater than 6 minutes as the scope was slowly withdrawn colonic mucosa was carefully inspected this was noted to be unremarkable and within normal limits the hallway through so as retroflexion rectal examination does reveal large external hemorrhoid but does not appear to be congested or thrombosed at this point ESTIMATED BLOOD LOSS: None SPECIMENS REMOVED: None COMPLICATIONS: None IMPRESSION: External hemorrhoids otherwise normal colonoscopy PLAN: Supportive care Okay for discharge from GI Follow up with GI post discharge CBC prior to office visit if anemia persists consider capsule endoscopy Kirit Alexandre MD Jun 20, 2017 16:21
[2017-06-20] MEDS: CARVEDILOL 3.125 MG TAB PO SCH (20:54)
[2017-06-20 21:09] LABS: HEMATOCRIT 26.3 % (39.0-51.0); REVIEW FLAG FINAL
[2017-06-21] MEDS: CHLORHEXIDINE GLUCONATE 2 % 1 PACK (2 CLOTHS) TOP SCH (04:00)
[2017-06-21 08:00] VITALS: BP 96/63; PULSE 95; RESP 18; TEMP 96.7; O2SAT 94
[2017-06-21] MEDS: MORPHINE SULFATE 4 MG/ML INJ IV PRN ×2 (08:57→15:53)
[2017-06-21] MEDS: SODIUM CHLORIDE 0.9% FLUSH 10 ML FLUSH SCH ×2 (08:58→19:52)
[2017-06-21] MEDS: DOCUSATE SODIUM 50 MG/SENNA 8.6 MG TAB PO SCH ×2 (08:58→19:52)
[2017-06-21] MEDS: CARVEDILOL 3.125 MG TAB PO SCH ×2 (08:59→19:51)
[2017-06-21] MEDS: PANTOPRAZOLE SODIUM 40 MG VIAL IV SCH ×2 (08:59→19:52)
[2017-06-21 09:39] LABS: HEMATOCRIT 26.6 % (39.0-51.0); MEAN CELL VOLUME 90.7 FL (80.0-100.0); MEAN CORPUSCULAR HEMOGLOBIN 31.2 PG (27.0-34.0); MEAN CORPUSCULAR HGB CONC 34.3 % (32.0-36.0); PLATELET COUNT 134 TH/MM3 (150-450); RED BLOOD COUNT 2.94 MIL/MM3 (4.50-5.90); RED CELL DISTRIBUTION WIDTH 13.6 % (11.6-17.2); REVIEW FLAG FINAL; WHITE BLOOD COUNT 9.6 TH/MM3 (4.0-11.0)
[2017-06-21 10:01] VITALS: O2SAT 98
[2017-06-21 10:12] LABS: BICARBONATE 27.1 MEQ/L (21.0-32.0)
[2017-06-21 10:24] LABS: POTASSIUM 2.9 MEQ/L (3.5-5.1)
[2017-06-21 12:00] VITALS: BP 136/74; PULSE 96; RESP 20; TEMP 97.6; O2SAT 98
[2017-06-21] MEDS ORDERED: POTASSIUM CHLORIDE 10 MEQ CONTROLLED RELEASE TAB PO ONE ×3 (12:15→20:00)
--- NOTE | 2017-06-21 12:18 | HHI.PR ---
Subjective Remarks resting comfortably with no distress. says that has mild weakness. Objective Vitals Vital Signs Date Time Temp Pulse Resp B/P Pulse Ox O2 Delivery O2 Flow Rate FiO2 06/21/17 10:01 98 21 06/21/17 08:00 96.7 95 18 96/63 94 06/20/17 19:00 97 06/20/17 19:00 98.4 97 18 130/80 99 06/20/17 17:21 100 Nasal Cannula 2.00 06/20/17 16:25 88 18 153/72 100 06/20/17 16:15 88 16 146/74 100 06/20/17 16:05 98.2 89 18 137/78 96 I/O 06/20/17 06/20/17 06/20/17 06/21/17 06/21/17 06/21/17 07:00 15:00 23:00 07:00 15:00 23:00 Intake Total 1018 ml 740 ml 240 ml Output Total 875 ml 600 ml 300 ml Balance 143 ml 140 ml -60 ml Intake Oral 682 ml 240 ml 240 ml IV Total 336 ml 300 ml Other 200 ml Output Urine Total 875 ml 600 ml 300 ml # Voids 1 # Bowel Movements 2 0 Result Diagram: 06/21/17 0828 06/21/17 0828 Imaging Last Impressions Upper Extremity Ultrasound 06/19/17 0000 Signed Impressions: Service Date/Time: Monday, June 19, 2017 14:25 - CONCLUSION: Bilateral cephalic venous superficial thrombosis. No evidence of deep venous thrombosis Feliciano Echeverria MD Lower Extremity Ultrasound 06/19/17 0000 Signed Impressions: Service Date/Time: Monday, June 19, 2017 13:35 - CONCLUSION: Negative for deep venous thrombosis. Zheng Forte MD FACR Abdomen/Pelvis CT 06/18/172046 Signed Impressions: Service Date/Time: Sunday, June 18, 2017 21:10 - CONCLUSION: 1. Constipation. 2. Small fat containing umbilical hernia. 3. Bladder wall thickening. 4. Nonobstructing right renal calculus measures 3 mm. 5. Multiple hepatic and left renal cysts. Aly Mora MD Chest X-Ray 06/18/17 1906 Signed Impressions: Service Date/Time: Sunday, June 18, 2017 19:06 - CONCLUSION: No acute disease. Aly Mora MD Objective Remarks LGENERAL: This is a well-nourished, well-developed patient, in no apparent distress. CARDIOVASCULAR: Regular rate and regular rhythm without murmurs, gallops, or rubs. RESPIRATORY: Clear to auscultation. Breath sounds equal bilaterally. No wheezes , rales, or rhonchi. GASTROINTESTINAL: Abdomen soft, non-tender, nondistended. Normal, active bowel sounds MUSCULOSKELETAL: Extremities without clubbing, cyanosis, or edema. NEURO: Alert & Oriented x4 to person, place, time, situation. Moves all ext x4 Procedures IVC filter placement EGD/ colonoscopy Medications and IVs Current Medications Sodium Chloride 2 ml 2 ml UNSCH PRN IVF FLUSH AFTER USING IV ACCESS; Start at 19:15 Sodium Chloride 1,000 ml @ 1,000 mls/hr Q1H IV Last administered on 06/18/17 19:09; Start 06/18/17 at 19:06; Stop 06/18/17 at 20:05; Status DC Sodium Chloride 1,000 ml @ 1,000 mls/hr Q1H IV Last administered on 06/18/17 19:59; Start 06/18/17 at 19:37; Stop 06/18/17 at 20:36; Status DC Pantoprazole Sodium 80 mg/ Sodium Chloride 35 ml @ 420 mls/hr ONCE ONCE IV Last administered on 06/18/17 20:42; Start 06/18/17 at 20:00; Stop 06/18/17 at 20:04; Status DC Pantoprazole Sodium 80 mg/ Sodium Chloride 100 ml @ 10 mls/hr Q10H IV Last administered on 06/18/17 20:42; Start 06/18/17 at 20:00; Stop 06/18/17 at 22:08 ; Status DC Sodium Chloride 250 ml @ 15 mls/hr ONCE ONCE IV Last administered on 21:56; Start 06/18/17 at 20:00; Stop 06/19/17 at 12:39; Status DC Sodium Chloride 1,000 ml @ 1,000 mls/hr Q1H IV Last administered on 06/18/17 20:42; Start 06/18/17 at 19:49; Stop 06/18/17 at 20:48; Status DC Prothrombin Complex Concent (Human)/Syringe / Bag (Kcentra Inj/ Syringe/Bag) 0 ml @ 500 mls/hr ONCE ONCE IV Last administered on 06/18/17 21:05; Start 06/18 at 20:30; Stop 06/18/17 at 20:31; Status DC Iohexol 95 ml 95 ml STK-MED ONCE IV Last administered on 06/18/17 21:12; Start 06/18/17 at 21:12; Stop 06/18/17 at 21:13; Status DC Sodium Chloride (NS 1000 ml Inj) 1,000 ml @ 84 mls/hr [id number] IV Last administered on 06/20/17 09:27; Start 06/18/17 at 21:42; Stop 06/20/17 at 12:06 ; Status DC Sodium Chloride (NS Flush) 2 ml UNSCH PRN .XX FLUSH AFTER USING IV ACCESS Last administered on 06/20/17 22:17; Start 06/18/17 at 21:45 Sodium Chloride (NS Flush) 2 ml BID .XX Last administered on 06/21/17 08:58; Start 06/19/17 at 09:00 Acetaminophen (Tylenol) 650 mg Q6H PRN PO PAIN 1-10 AND/OR FEVER >101F; Start 06/18/17 at 21:45 Morphine Sulfate (Morphine Inj) 2 mg Q2H PRN IV PAIN SCALE 6 TO 10 Last administered on 06/21/17 08:57; Start 06/18/17 at 21:45 Pantoprazole Sodium (Protonix Inj) 40 mg Q12H IV Last administered on 08:59; Start 06/18/17 at 23:00 Ondansetron HCl (Zofran Inj) 4 mg Q6H PRN IV NAUSEA OR VOMITING; Start at 21:45 Albuterol/ Ipratropium (Duoneb Neb) 1 ampule Q2HR NEB PRN INH WHEEZING; Start 06/18/17 at 21:45 Miscellaneous Information 1 [id number] XX ; Start 06/18/17 at 21:45 Chlorhexidine Gluconate (Chlorhexidine 2% Cloth) 3 pack Taper DAILY@04 TOP Last administered on 06/19/17 04:00; Start 06/19/17 at 04:00; Stop 06/15/18 at 03:59 Chlorhexidine Gluconate (Chlorhexidine 2% Cloth) 3 pack UNSCH PRN TOP HYGIENIC CARE; Start 06/18/17 at 21:45 Senna/Docusate Sodium (Neva-Colace) 1 tab BID PO Last administered on 08:58; Start 06/19/17 at 09:00 Magnesium Hydroxide (Milk Of Magnesia Liq) 30 ml Q12H PRN PO MILD - MODERATE CONSTIPATION; Start 06/18/17 at 21:45 Sennosides (Senokot) 17.2 mg Q12H PRN PO MODERATE - SEVERE CONSTIPATION; Start 06/18/17 at 21:45 Bisacodyl (Dulcolax Supp) 10 mg DAILY PRN RECTAL SEVERE CONSITIPATION; Start at 21:45 Lactulose (Lactulose Liq) 30 ml DAILY PRN PO SEVERE CONSITIPATION; Start at 21:45 Polyethylene Glycol/ Electrolytes (Colyte Liq) 4,000 ml ONCE ONCE PO Last administered on 06/19/17 10:00; Start 06/19/17 at 10:00; Stop 06/19/17 at 10:04 ; Status DC Propofol (Diprivan 200 Mg/20 ml Inj) 150 mg STK-MED ONCE IV ; Start 06/19/17 at 09:36; Stop 06/19/17 at 09:59; Status DC Miscellaneous Information ALL NURSING DEPARTME... UNSCH PRN .XX SEE LABEL COMMENTS; Start 06/19/17 at 10:15; Stop 06/20/17 at 10:14; Status DC Fentanyl Citrate (fentaNYL INJ) 100 mcg STK-MED ONCE .ROUTE ; Start 06/20/17 at 10:40; Stop 06/20/17 at 10:41; Status DC Lorazepam (Ativan Inj) 2 mg STK-MED ONCE .ROUTE ; Start 06/20/17 at 10:50; Stop 06/20/17 at 10:51; Status DC Iohexol (Omnipaque 350 Inj) 30 ml STK-MED ONCE IV Last administered on 11:17; Start 06/20/17 at 11:17; Stop 06/20/17 at 11:18; Status DC Carvedilol 3.125 mg 3.125 mg Q12HR PO Last administered on 06/21/17 08:59; Start 06/20/17 at 21:00 Potassium Chloride (KCl 20 Meq Premix Inj) 100 ml @ 50 mls/hr Q2H IV Last administered on 06/20/17 14:00; Start 06/20/17 at 12:00; Stop 06/20/17 at 15:59 ; Status DC Lorazepam (Ativan Inj) 1 mg STK-MED ONCE IV Last administered on 06/20/17 11: 00; Start 06/20/17 at 11:00; Stop 06/20/17 at 14:19; Status DC Fentanyl Citrate (fentaNYL INJ) 100 mcg STK-MED ONCE IV Last administered on 11:00; Start 06/20/17 at 11:00; Stop 06/20/17 at 14:21; Status DC Propofol (Diprivan 200 Mg/20 ml Inj) 120 mg STK-MED ONCE IV ; Start 06/20/17 at 15:48; Stop 06/20/17 at 16:06; Status DC A/P Assessment and Plan A/P Probable GI bleed - Coumadin reversed with Kcentra and vitamin K, INR 1.5 - GI following. Status post EGD which showed gastritis. s/p colonoscopy with external hemorrhoids. Symptomatic Anemia, likely secondary to blood loss from GI source. Patient admits he had one episode of black stool prior to coming to the hospital. - Transfuse for hemoglobin less than 8 -monitor H/H Acute kidney injury: Resolved with IV fluid. - Monitor trend of creatinine and strict I's and O's DVT of lower extremity -s/p IVC filter placement - Hematology following. I - Ultrasound Doppler bilateral upper extremities shows bilateral cephalic superficial vein thrombosis and lower extremities Dopplers are negative Hypertension -Initially hypotensive. Lisinopril, Coreg, and Lasix on hold. Blood pressure improving, slightly tachycardic. -2-D echo pending - Resumed Coreg at a lower dose, 3.125 mg twice a day. Continue to monitor. History of CHF: Lasix, Coreg, lisinopril on hold as above due to volume depletion and hypotension. Reintroduce CHF meds as tolerated. Hypokalemia: Replace and monitor hepatitis C- f/u as outpatient. DVT prophylaxis - Teds SCDs dc alarcon cath. consult PT. - Discharge Planning possible dc home tomorrow. Tiffany Page MD Jun 21, 2017 12:18
--- NOTE | 2017-06-21 14:17 | HHI.GIFU ---
Subjective Remarks pt resting in bed, no apparent distress. tolerating diet (Shelby Ceron ) Objective Vitals I&O Vital Signs Date Time Temp Pulse Resp B/P Pulse Ox O2 Delivery O2 Flow Rate FiO2 06/21/17 10:01 98 21 06/21/17 08:00 96.7 95 18 96/63 94 06/20/17 19:00 97 06/20/17 19:00 98.4 97 18 130/80 99 06/20/17 17:21 100 Nasal Cannula 2.00 06/20/17 16:25 88 18 153/72 100 06/20/17 16:15 88 16 146/74 100 06/20/17 16:05 98.2 89 18 137/78 96 I/O 06/20/17 06/20/17 06/20/17 06/21/17 06/21/17 06/21/17 07:00 15:00 23:00 07:00 15:00 23:00 Intake Total 1018 ml 740 ml 240 ml Output Total 875 ml 600 ml 300 ml Balance 143 ml 140 ml -60 ml Intake Oral 682 ml 240 ml 240 ml IV Total 336 ml 300 ml Other 200 ml Output Urine Total 875 ml 600 ml 300 ml # Voids 1 # Bowel Movements 2 0 Laboratory Laboratory Tests Test 06/20/17 06/21/17 19:42 08:28 Hemoglobin 9.0 9.2 Hematocrit 26.3 26.6 White Blood Count 9.6 Red Blood Count 2.94 Mean Corpuscular Volume 90.7 Mean Corpuscular Hemoglobin 31.2 Mean Corpuscular Hemoglobin 34.3 Concent Red Cell Distribution Width 13.6 Platelet Count 134 Mean Platelet Volume 8.8 Sodium Level 143 Potassium Level 2.9 Chloride Level 109 Carbon Dioxide Level 27.1 Anion Gap 7 Blood Urea Nitrogen 14 Creatinine 0.86 Estimat Glomerular Filtration 109 Rate Random Glucose 90 Calcium Level 7.9 Date/Time Procedure Status Source Growth 06/18/17 19:30 Aerobic Blood Culture - Preliminary Resulted Blood Peripheral NO GROWTH IN 3 DAYS 06/18/17 19:30 Anaerobic Blood Culture - Preliminary Resulted Blood Peripheral NO GROWTH IN 3 DAYS Imaging Last Impressions Upper Extremity Ultrasound 06/19/17 0000 Signed Impressions: Service Date/Time: Monday, June 19, 2017 14:25 - CONCLUSION: Bilateral cephalic venous superficial thrombosis. No evidence of deep venous thrombosis Feliciano Echeverria MD Lower Extremity Ultrasound 06/19/17 0000 Signed Impressions: Service Date/Time: Monday, June 19, 2017 13:35 - CONCLUSION: Negative for deep venous thrombosis. Zheng Forte MD FACR Abdomen/Pelvis CT [id number]/18/[id number] Signed Impressions: Service Date/Time: Sunday, June 18, 2017 21:10 - CONCLUSION: 1. Constipation. 2. Small fat containing umbilical hernia. 3. Bladder wall thickening. 4. Nonobstructing right renal calculus measures 3 mm. 5. Multiple hepatic and left renal cysts. Aly Mora MD Chest X-Ray [id number]/18/[id number] Signed Impressions: Service Date/Time: Sunday, June 18, 2017 19:06 - CONCLUSION: No acute disease. Aly Mora MD Physical Exam HEENT: PERRL; normocephalic; atraumatic; no jaundice. T CHEST: CTA CARDIAC: RRR ABDOMEN: Soft, protuberant, tympanitic, nontender; no hepatosplenomegaly; bowel sounds are present in all four quadrants. EXTREMITIES: No clubbing, cyanosis, pitting edema BLE SKIN: Normal; no rash; no jaundice. 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 (Shelby Ceron [facility]) Assessment and Plan Plan - Acute anemia/possible GI bleed- Symptomatic with dizziness, dyspnea, acute onset of heart burn, hypotensive. hgb was 7.9 on admission. Today hgb is 9.6 s/ p 2 units of PRBC emergently Ct of abd/pelvis on (06/18/17) showed 1. Constipation. 2. Small fat containing umbilical hernia. 3. Bladder wall thickening. 4. Nonobstructing right renal calculus measures 3 mm. 5. Multiple hepatic and left renal cysts. Denies alcohol or NSAIDs. By report, last colonoscopy was more than 5 years ago. One episode of vomiting and dark stools, but not exactly sure what color due to dizziness at the time. He is now hemodynamically stable, on PPI, Coumadin on hold. s/p EGD/ colonoscopy --> gastritis, ext hemorrhoids, path gastritis, h pylori - Chronic constipation, for which he takes Miralax once a week and daily Metamucil. Senokot and lactulose ordered - JERI- BUN 54, which could indicate upper GI bleed - Acute onset of heart burn- started having heart burn, so he took Rolaids and Vinegar, this continued through Monday - DVT in Nov. Coumadin on hold, IR consulted for IVC filter Plan: - amoxicillin 1g PO BID 7d - clarithromycin 500mg PO BID 7d - Cont. PPI - Monitor hh - Transfuse as needed - Cont. bowel regimen - Supportive care - f/u with GI as outpatient - Patient seen and examined by Dr. Alexandre and myself and this note is written on his behalf (Shelby Ceron) Physician Comments Patient seen and examined Agree with above Continue with current supportive care Monitor labs We will obtain small bowel follow-through to rule out small bowel pathology and most likely patient will need outpatient capsule endoscopy to further evaluate the anemia if the small bowel follow-through is negative (Kirit Alexandre MD) Shelby Ceron Jun 21, 2017 14:17 Kirit Alexandre MD Jun 21, 2017 23:05
--- NOTE | 2017-06-21 14:23 | PD.ONC.PN ---
Subjective Subjective Remarks Afebrile overnight. Patient seen ~10AM. Resting in bed in nad. Sister at bedside. Received IVC filter placement yesterday. Objective Data Date Time Temp Pulse Resp B/P Pulse Ox O2 Delivery O2 Flow Rate FiO2 06/21/17 12:00 97.6 96 20 136/74 98 06/21/17 10:01 98 21 06/21/17 08:00 96.7 95 18 96/63 94 06/20/17 19:00 97 06/20/17 19:00 98.4 97 18 130/80 99 06/20/17 17:21 100 Nasal Cannula 2.00 06/20/17 16:25 88 18 153/72 100 06/20/17 16:15 88 16 146/74 100 06/20/17 16:05 98.2 89 18 137/78 96 Result Diagram: 06/21/1728 06/21/1728 Laboratory Results Laboratory Tests Test 06/20/17 06/21/17 19:42 08:28 Hemoglobin 9.0 GM/DL 9.2 GM/DL Hematocrit 26.3 % 26.6 % White Blood Count 9.6 TH/MM3 Red Blood Count 2.94 MIL/MM3 Mean Corpuscular Volume 90.7 FL Mean Corpuscular Hemoglobin 31.2 PG Mean Corpuscular Hemoglobin 34.3 % Concent Red Cell Distribution Width 13.6 % Platelet Count 134 TH/MM3 Mean Platelet Volume 8.8 FL Sodium Level 143 MEQ/L Potassium Level 2.9 MEQ/L Chloride Level 109 MEQ/L Carbon Dioxide Level 27.1 MEQ/L Anion Gap 7 MEQ/L Blood Urea Nitrogen 14 MG/DL Creatinine 0.86 MG/DL Estimat Glomerular Filtration 109 ML/MIN Rate Random Glucose 90 MG/DL Calcium Level 7.9 MG/DL Culture Results Microbiology Date/Time Procedure Status Source Growth 06/18/17 19:25 Aerobic Blood Culture - Preliminary Resulted Blood Peripheral NO GROWTH IN 3 DAYS 06/18/17 19:25 Anaerobic Blood Culture - Preliminary Resulted Blood Peripheral NO GROWTH IN 3 DAYS 06/18/17 19:30 Aerobic Blood Culture - Preliminary Resulted Blood Peripheral NO GROWTH IN 3 DAYS 06/18/17 19:30 Anaerobic Blood Culture - Preliminary Resulted Blood Peripheral NO GROWTH IN 3 DAYS Administered Medications Medications (Trade) Dose Ordered Sig/Katya Route PRN Reason Start Time Stop Time Status Last Admin Dose Admin Sodium Chloride (NS Flush) 2 ml UNSCH PRN .XX FLUSH AFTER USING IV ACCESS 06/18/17 21:45 06/20/17 22:17 Sodium Chloride (NS Flush) 2 ml BID .XX 06/19/17 09:00 06/21/17 08:58 Morphine Sulfate (Morphine Inj) 2 mg Q2H PRN IV PAIN SCALE 6 TO 10 06/18/17 21:45 06/21/17 08:57 Pantoprazole Sodium (Protonix Inj) 40 mg Q12H IV 06/18/17 23:00 06/21/17 08:59 Chlorhexidine Gluconate (Chlorhexidine 2% Cloth) 3 pack Taper DAILY@04 TOP 06/19/17 04:00 06/15/18 03:59 06/19/17 04:00 Senna/Docusate Sodium (Neva-Colace) 1 tab BID PO 06/19/17 09:00 06/21/17 08:58 Carvedilol (Coreg) 3.125 mg Q12HR PO 06/20/17 21:00 06/21/17 08:59 Objective Remarks GENERAL: Middle aged male lying in bed, undergoing ultrasound SKIN: Warm and dry. HEAD: Normocephalic. EYES: No injection or drainage. NECK: Supple, trachea midline. CARDIOVASCULAR: Regular rate and rhythm RESPIRATORY: Breath sounds equal bilaterally. No accessory muscle use. GASTROINTESTINAL: Abdomen soft, non-tender, nondistended. EXTREMITIES: No cyanosis NEUROLOGICAL: No obvious focal deficit. Awake, alert, and oriented x3. Assessment/Plan Problem List: (1) DVT (deep venous thrombosis) Status: Acute Plan: -- s/p retrievable IVC filter. --ultrasound of lower extremities shows no no active blood clot. (2) Acute GI bleeding Status: Acute Plan: -- B12 WNL --no sign of hemolysis. LDH/haptoglobin WNL --dominique negative --EGD, 06/19 showed no bleeding. --colonoscopy 06/20 showed external hemorrhoids only Assessment 61y/o male with a history of lower extremity DVT, who now presents with acute drop in hemoglobin and concern for GI bleeding. history of hypertension, osteoarthritis and DVT of left lower extremity -- presented with left lower extremity swelling in November of 2016 and was found to have occlusive thrombus. He was started on anticoagulation and discharged home on Coumadin. He now presents to the emergency department with lightheadedness and dyspnea and generalized weakness. Plan 1. monitor CBC 2. supportive care Attending Statement The exam, history, and the medical decision-making described in the above note were completed with the assistance of the mid-level provider. I reviewed and agree with the findings presented. I attest that I had a [id number] encounter with the patient on the same day, and personally performed and documented my assessment and findings in the medical record. Problem Qualifiers (1) DVT (deep venous thrombosis): Sharee Lema Jun 21, 2017 14:23 Frank Rasmussen MD Jun 22, 2017 00:18
[2017-06-21 16:00] VITALS: BP 160/92; PULSE 90; RESP 18; TEMP 96.5; O2SAT 94
[2017-06-21] MEDS: CLARITHROMYCIN 500 MG TAB PO SCH (19:51)
[2017-06-21] MEDS: AMOXICILLIN (TRIHYDRATE) 500 MG CAP PO SCH (19:52)
[2017-06-21 20:00] VITALS: BP 134/76; PULSE 95; PULSE 97; RESP 20; TEMP 98; O2SAT 98
--- NOTE | 2017-06-21 21:44 | ECHRPT ---
Indication: Essential (primary) hypertension CONCLUSIONS Normal left ventricular size and wall thickness. The left ventricular systolic function is normal wi th an estimated ejection fraction in the range of 55-60%. Left ventricular diastolic function parameters a re normal. There is mild tricuspid valve regurgitation. The estimated pulmonary arterial pressure is 36 mmHg. BP: 85 / 62 HR: 108 Rhythm: Sinus MEASUREMENTS (Male / Female) Normal Values Technical Quality:Fair 2D ECHO LV Diastolic Diameter PLAX 4.6 cm 4.2 - 5.9 / 3.9 - 5.3 cm LV Systolic Diameter PLAX 3.5 cm IVS Diastolic Thickness 1.3 cm 0.6 - 1.0 / 0.6 - 0.9 cm LVPW Diastolic Thickness 1.3 cm 0.6 - 1.0 / 0.6 - 0.9 cm LV Relative Wall Thickness 0.5 LVOT Diameter 2.1 cm M-MODE Aortic Root Diameter MM 3.2 cm LA Systolic Diameter MM 3.7 cm LA Ao Ratio MM 1.2 AV Cusp Separation MM 2.0 cm DOPPLER AV Peak Velocity 152.0 cm/s AV Peak Gradient 9.2 mmHg LVOT Peak Velocity 124.0 cm/s LVOT Peak Gradient 6.2 mmHg AV Area Cont Eq pk 2.8 cm MR Peak Velocity 208.0 cm/s MR Peak Gradient 17.3 mmHg Mitral E Point Velocity 112.0 cm/s Mitral A Point Velocity 105.0 cm/s Mitral E to A Ratio 1.1 LV E' Lateral Velocity 10.2 cm/s Mitral E to LV E' Lateral Ratio 11.0 LV E' Septal Velocity 8.7 cm/s Mitral E to LV E' Septal Ratio 12.9 TR Peak Velocity 254.0 cm/s TR Peak Gradient 25.8 mmHg PV Peak Velocity 122.0 cm/s PV Peak Gradient 6.0 mmHg FINDINGS LEFT VENTRICLE Normal left ventricular size and wall thickness. The left ventricular systolic function is normal wi th an estimated ejection fraction in the range of 55-60%. Left ventricular diastolic function parameters a re normal. RIGHT VENTRICLE Normal right ventricular size and systolic function. LEFT ATRIUM The left atrial size is normal. RIGHT ATRIUM The right atrial size is normal. ATRIAL SEPTUM Normal atrial septal thickness without atrial level shunting by limited color doppler interrogation. AORTA The aortic root and proximal ascending aorta are normal in size on limited imaging. MITRAL VALVE Structurally normal mitral valve. No mitral valve stenosis or regurgitation. AORTIC VALVE Trileaflet aortic valve. No aortic valve stenosis or regurgitation. TRICUSPID VALVE There is mild tricuspid valve regurgitation. The estimated pulmonary arterial pressure is 36 mmHg. PULMONARY VALVE The pulmonary valve is not well visualized. VESSELS The inferior vena cava is normal in size. PERICARDIUM No pericardial effusion. Desirae Vicente MD, FACC (Electronically Signed) Final Date:21 June 2017 21:42
[2017-06-22] VITALS: BP 135/74; PULSE 93; RESP 20; TEMP 97.3; O2SAT 98
[2017-06-22] MEDS: CHLORHEXIDINE GLUCONATE 2 % 1 PACK (2 CLOTHS) TOP SCH (03:31)
[2017-06-22 04:00] VITALS: BP 128/60; PULSE 98; RESP 20; TEMP 97.7; O2SAT 97
[2017-06-22 06:25] LABS: HEMATOCRIT 25.5 % (39.0-51.0); MEAN CELL VOLUME 91.8 FL (80.0-100.0); MEAN CORPUSCULAR HEMOGLOBIN 31.2 PG (27.0-34.0); MEAN CORPUSCULAR HGB CONC 33.9 % (32.0-36.0); PLATELET COUNT 132 TH/MM3 (150-450); RED BLOOD COUNT 2.78 MIL/MM3 (4.50-5.90); RED CELL DISTRIBUTION WIDTH 13.1 % (11.6-17.2); REVIEW FLAG FINAL; WHITE BLOOD COUNT 8.9 TH/MM3 (4.0-11.0)
[2017-06-22 08:00] VITALS: BP 151/73; PULSE 89; RESP 18; TEMP 97.1; O2SAT 97
[2017-06-22] MEDS: SODIUM CHLORIDE 0.9% FLUSH 10 ML FLUSH SCH ×2 (09:47→20:49)
[2017-06-22] MEDS: AMOXICILLIN (TRIHYDRATE) 500 MG CAP PO SCH ×2 (09:47→20:44)
[2017-06-22] MEDS: CLARITHROMYCIN 500 MG TAB PO SCH ×2 (09:47→20:44)
[2017-06-22] MEDS: CARVEDILOL 3.125 MG TAB PO SCH ×2 (09:47→20:44)
[2017-06-22] MEDS: DOCUSATE SODIUM 50 MG/SENNA 8.6 MG TAB PO SCH ×2 (09:47→20:44)
[2017-06-22] MEDS: PANTOPRAZOLE SODIUM 40 MG VIAL IV SCH ×2 (09:51→20:44)
--- NOTE | 2017-06-22 10:37 | HHI.PR ---
Subjective Remarks resting comfortably with no distress. no chest pain or sob. no new complaints. Objective Vitals Vital Signs Date Time Temp Pulse Resp B/P Pulse Ox O2 Delivery O2 Flow Rate FiO2 06/22/17 08:00 97.1 89 18 151/73 97 06/22/17 04:00 97.7 98 20 128/60 97 06/22/17 00:00 97.3 93 20 135/74 98 06/21/17 20:00 98.0 97 20 134/76 98 06/21/17 20:00 95 06/21/17 16:00 96.5 90 18 160/92 94 06/21/17 12:00 97.6 96 20 136/74 98 I/O 06/21/17 06/21/17 06/21/17 06/22/17 06/22/17 06/22/17 07:00 15:00 23:00 07:00 15:00 23:00 Intake Total 240 ml 980 ml 0 ml Output Total 300 ml 2400 ml 850 ml Balance -60 ml -1420 ml -850 ml Intake Oral 240 ml 980 ml 0 ml Output Urine Total 300 ml 2400 ml 850 ml # Bowel Movements 0 0 Result Diagram: 06/22/17 0424 06/22/17 0424 Imaging Last Impressions Upper Extremity Ultrasound 06/19/17 0000 Signed Impressions: Service Date/Time: Monday, June 19, 2017 14:25 - CONCLUSION: Bilateral cephalic venous superficial thrombosis. No evidence of deep venous thrombosis Feliciano Echeverria MD Lower Extremity Ultrasound 06/19/17 0000 Signed Impressions: Service Date/Time: Monday, June 19, 2017 13:35 - CONCLUSION: Negative for deep venous thrombosis. Zheng Forte MD FACR Abdomen/Pelvis CT [id number]/18/172046 Signed Impressions: Service Date/Time: Sunday, June 18, 2017 21:10 - CONCLUSION: 1. Constipation. 2. Small fat containing umbilical hernia. 3. Bladder wall thickening. 4. Nonobstructing right renal calculus measures 3 mm. 5. Multiple hepatic and left renal cysts. Aly Mora MD Chest X-Ray 06/18/171905 Signed Impressions: Service Date/Time: Sunday, June 18, 2017 19:06 - CONCLUSION: No acute disease. Aly Mora MD Objective Remarks LGENERAL: This is a well-nourished, well-developed patient, in no apparent distress. CARDIOVASCULAR: Regular rate and regular rhythm without murmurs, gallops, or rubs. RESPIRATORY: Clear to auscultation. Breath sounds equal bilaterally. No wheezes , rales, or rhonchi. GASTROINTESTINAL: Abdomen soft, non-tender, nondistended. Normal, active bowel sounds MUSCULOSKELETAL: Extremities with bilateral pedal edema. NEURO: Alert & Oriented x4 to person, place, time, situation. Moves all ext x4 Procedures IVC filter placement EGD/ colonoscopy Medications and IVs Current Medications Sodium Chloride 2 ml 2 ml UNSCH PRN IVF FLUSH AFTER USING IV ACCESS; Start at 19:15 Sodium Chloride 1,000 ml @ 1,000 mls/hr Q1H IV Last administered on 06/18/17 19:09; Start 06/18/17 at 19:06; Stop 06/18/17 at 20:05; Status DC Sodium Chloride 1,000 ml @ 1,000 mls/hr Q1H IV Last administered on 06/18/17 19:59; Start 06/18/17 at 19:37; Stop 06/18/17 at 20:36; Status DC Pantoprazole Sodium 80 mg/ Sodium Chloride 35 ml @ 420 mls/hr ONCE ONCE IV Last administered on 06/18/17 20:42; Start 06/18/17 at 20:00; Stop 06/18/17 at 20:04; Status DC Pantoprazole Sodium 80 mg/ Sodium Chloride 100 ml @ 10 mls/hr Q10H IV Last administered on 06/18/17 20:42; Start 06/18/17 at 20:00; Stop 06/18/17 at 22:08 ; Status DC Sodium Chloride 250 ml @ 15 mls/hr ONCE ONCE IV Last administered on 21:56; Start 06/18/17 at 20:00; Stop 06/19/17 at 12:39; Status DC Sodium Chloride 1,000 ml @ 1,000 mls/hr Q1H IV Last administered on 06/18/17 20:42; Start 06/18/17 at 19:49; Stop 06/18/17 at 20:48; Status DC Prothrombin Complex Concent (Human)/Syringe / Bag (Kcentra Inj/ Syringe/Bag) 0 ml @ 500 mls/hr ONCE ONCE IV Last administered on 06/18/17 21:05; Start 06/18 at 20:30; Stop 06/18/17 at 20:31; Status DC Iohexol 95 ml 95 ml STK-MED ONCE IV Last administered on 06/18/17 21:12; Start 06/18/17 at 21:12; Stop 06/18/17 at 21:13; Status DC Sodium Chloride (NS 1000 ml Inj) 1,000 ml @ 84 mls/hr [id number] IV Last administered on 06/20/17 09:27; Start 06/18/17 at 21:42; Stop 06/20/17 at 12:06 ; Status DC Sodium Chloride (NS Flush) 2 ml UNSCH PRN .XX FLUSH AFTER USING IV ACCESS Last administered on 06/20/17 22:17; Start 06/18/17 at 21:45 Sodium Chloride (NS Flush) 2 ml BID .XX Last administered on 06/22/17 09:47; Start 06/19/17 at 09:00 Acetaminophen (Tylenol) 650 mg Q6H PRN PO PAIN 1-10 AND/OR FEVER >101F; Start 06/18/17 at 21:45 Morphine Sulfate (Morphine Inj) 2 mg Q2H PRN IV PAIN SCALE 6 TO 10 Last administered on 06/21/17 15:53; Start 06/18/17 at 21:45 Pantoprazole Sodium (Protonix Inj) 40 mg Q12H IV Last administered on 09:51; Start 06/18/17 at 23:00 Ondansetron HCl (Zofran Inj) 4 mg Q6H PRN IV NAUSEA OR VOMITING; Start at 21:45 Albuterol/ Ipratropium (Duoneb Neb) 1 ampule Q2HR NEB PRN INH WHEEZING; Start 06/18/17 at 21:45 Miscellaneous Information 1 Q361D XX ; Start 06/18/17 at 21:45 Chlorhexidine Gluconate (Chlorhexidine 2% Cloth) 3 pack Taper DAILY@04 TOP Last administered on 06/19/17 04:00; Start 06/19/17 at 04:00; Stop 06/15/18 at 03:59 Chlorhexidine Gluconate (Chlorhexidine 2% Cloth) 3 pack UNSCH PRN TOP HYGIENIC CARE; Start 06/18/17 at 21:45 Senna/Docusate Sodium (Neva-Colace) 1 tab BID PO Last administered on 09:47; Start 06/19/17 at 09:00 Magnesium Hydroxide (Milk Of Magnesia Liq) 30 ml Q12H PRN PO MILD - MODERATE CONSTIPATION; Start 06/18/17 at 21:45 Sennosides (Senokot) 17.2 mg Q12H PRN PO MODERATE - SEVERE CONSTIPATION; Start 06/18/17 at 21:45 Bisacodyl (Dulcolax Supp) 10 mg DAILY PRN RECTAL SEVERE CONSITIPATION; Start at 21:45 Lactulose (Lactulose Liq) 30 ml DAILY PRN PO SEVERE CONSITIPATION; Start at 21:45 Polyethylene Glycol/ Electrolytes (Colyte Liq) 4,000 ml ONCE ONCE PO Last administered on 06/19/17 10:00; Start 06/19/17 at 10:00; Stop 06/19/17 at 10:04 ; Status DC Propofol (Diprivan 200 Mg/20 ml Inj) 150 mg STK-MED ONCE IV ; Start 06/19/17 at 09:36; Stop 06/19/17 at 09:59; Status DC Miscellaneous Information ALL NURSING DEPARTME... UNSCH PRN .XX SEE LABEL COMMENTS; Start 06/19/17 at 10:15; Stop 06/20/17 at 10:14; Status DC Fentanyl Citrate (fentaNYL INJ) 100 mcg STK-MED ONCE .ROUTE ; Start 06/20/17 at 10:40; Stop 06/20/17 at 10:41; Status DC Lorazepam (Ativan Inj) 2 mg STK-MED ONCE .ROUTE ; Start 06/20/17 at 10:50; Stop 06/20/17 at 10:51; Status DC Iohexol (Omnipaque 350 Inj) 30 ml STK-MED ONCE IV Last administered on 11:17; Start 06/20/17 at 11:17; Stop 06/20/17 at 11:18; Status DC Carvedilol 3.125 mg 3.125 mg Q12HR PO Last administered on 06/22/17 09:47; Start 06/20/17 at 21:00 Potassium Chloride (KCl 20 Meq Premix Inj) 100 ml @ 50 mls/hr Q2H IV Last administered on 06/20/17 14:00; Start 06/20/17 at 12:00; Stop 06/20/17 at 15:59 ; Status DC Lorazepam (Ativan Inj) 1 mg STK-MED ONCE IV Last administered on 06/20/17 11: 00; Start 06/20/17 at 11:00; Stop 06/20/17 at 14:19; Status DC Fentanyl Citrate (fentaNYL INJ) 100 mcg STK-MED ONCE IV Last administered on 11:00; Start 06/20/17 at 11:00; Stop 06/20/17 at 14:21; Status DC Propofol (Diprivan 200 Mg/20 ml Inj) 120 mg STK-MED ONCE IV ; Start 06/20/17 at 15:48; Stop 06/20/17 at 16:06; Status DC Potassium Chloride (KCl) 30 meq ONCE ONCE PO Last administered on 06/21/17 13 :20; Start 06/21/17 at 12:15; Stop 06/21/17 at 12:47; Status DC Potassium Chloride (KCl) 30 meq ONCE ONCE PO Last administered on 06/21/17 16 :04; Start 06/21/17 at 16:00; Stop 06/21/17 at 16:33; Status DC Potassium Chloride (KCl) 30 meq ONCE ONCE PO Last administered on 06/21/17 19 :51; Start 06/21/17 at 20:00; Stop 06/21/17 at 20:01; Status DC Clarithromycin (Biaxin) 500 mg Q12HR PO Last administered on 06/22/17 09:47; Start 06/21/17 at 21:00; Stop 06/28/17 at 20:59 Amoxicillin (Trimox) 1,000 mg BID PO Last administered on 06/22/17 09:47; Start 06/21/17 at 21:00; Stop 06/28/17 at 20:59 Magnesium Citrate (Citroma Liq) 300 ml ONCE ONCE PO ; Start 06/22/17 at 12:00; Stop 06/22/17 at 12:01 Magnesium Citrate (Citroma Liq) 300 ml ONCE ONCE PO ; Start 06/22/17 at 18:00; Stop 06/22/17 at 18:01 Bisacodyl (Dulcolax Ec) 10 mg ONCE ONCE PO ; Start 06/22/17 at 18:00; Stop at 18:01 Bisacodyl (Dulcolax Ec) 10 mg ONCE ONCE PO ; Start 06/22/17 at 21:00; Stop at 21:01 A/P Assessment and Plan A/P Probable GI bleed - Coumadin reversed with Kcentra and vitamin K. - GI following. Status post EGD which showed gastritis. s/p colonoscopy with external hemorrhoids. -positive for H-Pylori- continue with amoxicillin, clarithromycin and protonix. Symptomatic Anemi. Patient admits he had one episode of black stool prior to coming to the hospital. -H/H fairly stable. Acute kidney injury: Resolved with IV fluid. - Monitor trend of creatinine and strict I's and O's DVT of lower extremity -s/p IVC filter placement - Hematology following. - Ultrasound Doppler bilateral upper extremities shows bilateral cephalic superficial vein thrombosis and lower extremities Dopplers are negative Hypertension -Initially hypotensive. Lisinopril, Coreg, and Lasix on hold. Blood pressure improving, slightly tachycardic. -2-D echo with EF 55%. - Resumed Coreg at a lower dose, 3.125 mg twice a day. Continue to monitor. History of CHF: resume lasix. -lisinopril can be restarted as outpatient if BP stable. Hypokalemia: Replaced. hepatitis C- f/u as outpatient. DVT prophylaxis - Teds SCDs - Discharge Planning cleared by hematology for discharge. possible dc home later today or in am if small bowel series negative. see med list. f/u; pcp,hematology and GI. d/w the patient. Tiffany Page MD Jun 22, 2017 10:37
[2017-06-22] MEDS ORDERED: CARV3.125 PO (10:40)
[2017-06-22] MEDS ORDERED: FURO40TA PO (10:40)
[2017-06-22] MEDS ORDERED: PROT40TA PO (10:40)
[2017-06-22] MEDS ORDERED: POTA-163 PO (10:40)
--- NOTE | 2017-06-22 10:43 | PD.ONC.PN ---
Subjective Subjective Remarks Afebrile overnight. Patient resting in bed in nad. some swelling in legs noted. No pain. Objective Data Date Time Temp Pulse Resp B/P Pulse Ox O2 Delivery O2 Flow Rate FiO2 06/22/17 08:00 97.1 89 18 151/73 97 06/22/17 04:00 97.7 98 20 128/60 97 06/22/17 00:00 97.3 93 20 135/74 98 06/21/17 20:00 98.0 97 20 134/76 98 06/21/17 20:00 95 06/21/17 16:00 96.5 90 18 160/92 94 06/21/17 12:00 97.6 96 20 136/74 98 06/22/17 06/22/17 06/22/17 07:00 15:00 23:00 Intake Total 0 ml Output Total 850 ml Balance -850 ml Result Diagram: 06/22/17 0424 06/22/17 0424 Laboratory Results Laboratory Tests Test 06/22/17 04:24 White Blood Count 8.9 TH/MM3 Red Blood Count 2.78 MIL/MM3 Hemoglobin 8.7 GM/DL Hematocrit 25.5 % Mean Corpuscular Volume 91.8 FL Mean Corpuscular Hemoglobin 31.2 PG Mean Corpuscular Hemoglobin 33.9 % Concent Red Cell Distribution Width 13.1 % Platelet Count 132 TH/MM3 Mean Platelet Volume 8.3 FL Potassium Level 3.6 MEQ/L Administered Medications Medications (Trade) Dose Ordered Sig/Katya Route PRN Reason Start Time Stop Time Status Last Admin Dose Admin Sodium Chloride (NS Flush) 2 ml UNSCH PRN .XX FLUSH AFTER USING IV ACCESS 06/18/17 21:45 06/20/17 22:17 Sodium Chloride (NS Flush) 2 ml BID .XX 06/19/17 09:00 06/22/17 09:47 Morphine Sulfate (Morphine Inj) 2 mg Q2H PRN IV PAIN SCALE 6 TO 10 06/18/17 21:45 06/21/17 15:53 Pantoprazole Sodium (Protonix Inj) 40 mg Q12H IV 06/18/17 23:00 06/22/17 09:51 Chlorhexidine Gluconate (Chlorhexidine 2% Cloth) 3 pack Taper DAILY@04 TOP 06/19/17 04:00 06/15/18 03:59 06/19/17 04:00 Senna/Docusate Sodium (Neva-Colace) 1 tab BID PO 06/19/17 09:00 06/22/17 09:47 Carvedilol (Coreg) 3.125 mg Q12HR PO 06/20/17 21:00 06/22/17 09:47 Clarithromycin (Biaxin) 500 mg Q12HR PO 06/21/17 21:00 06/28/17 20:59 06/22/17 09:47 Amoxicillin (Trimox) 1,000 mg BID PO 06/21/17 21:00 06/28/17 20:59 06/22/17 09:47 Objective Remarks GENERAL: Middle aged male lying in bed, in nad. SKIN: Warm and dry. HEAD: Normocephalic. EYES: No injection or drainage. NECK: Supple, trachea midline. CARDIOVASCULAR: Regular rate and rhythm RESPIRATORY: Breath sounds equal bilaterally. No accessory muscle use. GASTROINTESTINAL: Abdomen soft, non-tender, nondistended. EXTREMITIES: No cyanosis NEUROLOGICAL: awake and alert, normal speech Assessment/Plan Problem List: (1) DVT (deep venous thrombosis) Status: Acute Plan: -- s/p retrievable IVC filter. --ultrasound of lower extremities shows no no active blood clot. (2) Acute GI bleeding Status: Acute Plan: -- B12 WNL --no sign of hemolysis. LDH/haptoglobin WNL --dominique negative --EGD, 06/19 showed no bleeding. --colonoscopy 06/20 showed external hemorrhoids only Assessment 61y/o male with a history of lower extremity DVT, who now presents with acute drop in hemoglobin and concern for GI bleeding. history of hypertension, osteoarthritis and DVT of left lower extremity -- presented with left lower extremity swelling in November of 2016 and was found to have occlusive thrombus. He was started on anticoagulation and discharged home on Coumadin. He now presents to the emergency department with lightheadedness and dyspnea and generalized weakness. Plan 1. monitor CBC 2. supportive care 3. fs faxed to new patient referrals. follow up with Dr. Rasmussen in 4-6 weeks. Attending Statement The exam, history, and the medical decision-making described in the above note were completed with the assistance of the mid-level provider. I reviewed and agree with the findings presented. I attest that I had a [id number] encounter with the patient on the same day, and personally performed and documented my assessment and findings in the medical record. Small bowel follow through today per GI would transfuse 1 unit of pRBC since feels weak anticoagulation contraindicated in the setting of possible GI bleeding IVC filter in place d/w rn Problem Qualifiers (1) DVT (deep venous thrombosis): Sharee Lema Jun 22, 2017 10:43 Frank Rasmussen MD Jun 22, 2017 23:53
[2017-06-22] MEDS ORDERED: AMOX500C PO (10:44)
[2017-06-22] MEDS ORDERED: CLAR500T PO (10:44)
--- NOTE | 2017-06-22 10:56 | RADRPT ---
EXAM DATE/TIME: 06/20/2017 10:29 [facility] COMPARISON: No previous studies available for comparison. INDICATIONS : Patient with history of DVT and GI bleed in need of IVC filter placement. MEDICAL HISTORY : 1.DVT 2.HTN 3.Left shoulder osteoarthritis SURGICAL HISTORY : 1.Neck surgery 2.Abdominal hernia repair 3.Rotator cuff surgery of right shoulder ENCOUNTER: Initial ACUITY: 1 week PAIN SCORE: 0/10 FLUORO TIME: 1.0 minutes IMAGE SERIES: 1 ACCESS SITE: Right Femoral vein SEDATION TIME: 20 minutes CONTRAST: 1.) 30 cc Omnipaque (iohexol) 350 MEDICATION(S): 1.) 100 mcg fentanyl (Sublimaze) IV 2.) 1 mg lorazepam (Ativan) IV DEVICE(S): 1.) Inferior vena cava [place] filter PROCEDURE : 1. Ultrasound-guided venipuncture. 2. Inferior venacavogram. 3. Inferior vena cava filter placement. 4. Conscious sedation with continuous EKG and oximetry monitoring. The risks, benefits and alternatives to the procedure were explained and verbal and written consent w as obtained. The site was prepped in sterile fashion. Full sterile technique was used, including ca p, mask, sterile gloves and gown and a large sterile sheet. Hand hygiene and 2% chlorhexidine and/or betadine/alcohol prep was utilized per protocol for cutaneous antisepsis. The skin and subcutaneous tissues were infiltrated with local anesthetic solution. With ultrasound and fluoroscopic guidance the targeted vein was punctured and a vascular sheath was p laced. Inferior venacavogram was performed to demonstrate level of renal veins. No caval thrombus was identified. The prescribed filter was deployed in the infrarenal inferior vena cava. Following deplo yment the filter was identified in good position. Conscious sedation was performed with the prescribed dosages and duration as above in the presence of an independent trained radiology nurse to assist in the monitoring of the patient. EKG and oximetry remained stable throughout the procedure. The patient tolerated the procedure well and there were n o complications. The patient was sent to post anesthesia recovery in stable condition. CONCLUSION: Uncomplicated inferior vena cava filter placement as above. This is a removable filter which can be r etrieved up to one year from its placement. This was explained to the patient. Villa Gallagher Jr., MD on June 22, 2017 at 10:54 Board Certified Radiologist. This report was verified electronically.
[2017-06-22 12:00] VITALS: BP 121/73; PULSE 100; RESP 17; TEMP 96.3; O2SAT 97
[2017-06-22] MEDS ORDERED: MAGNESIUM CITRATE SOLN 300 ML BTL PO ONE ×2 (12:00→18:00)
[2017-06-22 16:00] VITALS: BP 162/81; PULSE 94; RESP 17; TEMP 96.7; O2SAT 99
[2017-06-22] MEDS ORDERED: BISACODYL EC 5 MG TABEC PO ONE ×2 (18:00→21:00)
--- NOTE | 2017-06-22 18:00 | HHI.GIFU ---
Subjective Remarks Pt prepping for SBFT. C/o leg edema. (Shelby Ceron) Objective Vitals I&O Vital Signs Date Time Temp Pulse Resp B/P Pulse Ox O2 Delivery O2 Flow Rate FiO2 06/22/17 16:00 96.7 94 17 162/81 99 06/22/17 12:00 96.3 100 17 121/73 97 06/22/17 08:00 97.1 89 18 151/73 97 06/22/17 04:00 97.7 98 20 128/60 97 06/22/17 00:00 97.3 93 20 135/74 98 06/21/17 20:00 98.0 97 20 134/76 98 06/21/17 20:00 95 I/O 06/21/17 06/21/17 06/21/17 06/22/17 06/22/17 06/22/17 07:00 15:00 23:00 07:00 15:00 23:00 Intake Total 240 ml 980 ml 0 ml 600 ml Output Total 300 ml 2400 ml 850 ml 1000 ml Balance -60 ml -1420 ml -850 ml -400 ml Intake Oral 240 ml 980 ml 0 ml 600 ml Output Urine Total 300 ml 2400 ml 850 ml 1000 ml # Bowel Movements 0 0 0 Laboratory Laboratory Tests Test 06/22/17 04:24 White Blood Count 8.9 Red Blood Count 2.78 Hemoglobin 8.7 Hematocrit 25.5 Mean Corpuscular Volume 91.8 Mean Corpuscular Hemoglobin 31.2 Mean Corpuscular Hemoglobin 33.9 Concent Red Cell Distribution Width 13.1 Platelet Count 132 Mean Platelet Volume 8.3 Potassium Level 3.6 Date/Time Procedure Status Source Growth 06/18/17 19:30 Aerobic Blood Culture - Preliminary Resulted Blood Peripheral NO GROWTH IN 4 DAYS 06/18/17 19:30 Anaerobic Blood Culture - Preliminary Resulted Blood Peripheral NO GROWTH IN 4 DAYS Imaging Last Impressions IVC Filter Placement X-Ray 06/20/17 0000 Signed Impressions: Service Date/Time: Tuesday, June 20, 2017 10:29 - CONCLUSION: Uncomplicated inferior vena cava filter placement as above. This is a removable filter which can be retrieved up to one year from its placement. This was explained to the patient. Villa Gallagher Jr., MD Upper Extremity Ultrasound 06/19/17 0000 Signed Impressions: Service Date/Time: Monday, June 19, 2017 14:25 - CONCLUSION: Bilateral cephalic venous superficial thrombosis. No evidence of deep venous thrombosis Feliciano Echeverria MD Lower Extremity Ultrasound 06/19/17 0000 Signed Impressions: Service Date/Time: Monday, June 19, 2017 13:35 - CONCLUSION: Negative for deep venous thrombosis. Zheng Forte MD FACR Abdomen/Pelvis CT [id number] Signed Impressions: Service Date/Time: Sunday, June 18, 2017 21:10 - CONCLUSION: 1. Constipation. 2. Small fat containing umbilical hernia. 3. Bladder wall thickening. 4. Nonobstructing right renal calculus measures 3 mm. 5. Multiple hepatic and left renal cysts. Aly Mora MD Chest X-Ray [id number] Signed Impressions: Service Date/Time: Sunday, June 18, 2017 19:06 - CONCLUSION: No acute disease. Aly Mora MD Physical Exam HEENT: PERRL; normocephalic; atraumatic; no jaundice. CHEST: CTA CARDIAC: RRR ABDOMEN: Soft, protuberant, tympanitic, nontender; no hepatosplenomegaly; bowel sounds are present in all four quadrants. EXTREMITIES: No clubbing, cyanosis, pitting edema BLE SKIN: Normal; no rash; no jaundice. 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 (Shelby Ceron [facility]) Assessment and Plan Plan - Acute anemia/possible GI bleed- Symptomatic with dizziness, dyspnea, acute onset of heart burn, hypotensive. hgb was 7.[address] of abd/pelvis on (06/18/17) showed 1. Constipation. 2. Small fat containing umbilical hernia. 3. Bladder wall thickening. 4. Nonobstructing right renal calculus measures 3 mm. 5. Multiple hepatic and left renal cysts. Denies alcohol or NSAIDs. By report, last colonoscopy was more than 5 years ago. One episode of vomiting and dark stools, but not exactly sure what color due to dizziness at the time. He is now hemodynamically stable, on PPI, Coumadin on hold. s/p EGD/ colonoscopy --> gastritis, ext hemorrhoids, path gastritis, h pylori - Chronic constipation, for which he takes Miralax once a week and daily Metamucil. Senokot and lactulose ordered - JERI- BUN 54, which could indicate upper GI bleed - Acute onset of heart burn- started having heart burn, so he took Rolaids and Vinegar, this continued through Monday - DVT in Nov. Coumadin on hold, IR consulted for IVC filter Plan: - await SBFT - if SBFT neg, capsule endoscopy as OP - amoxicillin 1g PO BID 7d - clarithromycin 500mg PO BID 7d - Cont. PPI - Monitor hh - Transfuse as needed - Cont. bowel regimen - Supportive care - f/u with GI as outpatient - Patient seen and examined by Dr. Alexandre and myself and this note is written on his behalf (Shelby Ceron) Physician Comments Patient seen and examined Agree with above Continue with current supportive care Monitor labs Await small bowel follow-through if this is negative then patient will need outpatient capsule endoscopy (Kirit Alexandre MD) Shelby Ceron Jun 22, 2017 18:00 Kirit Alexandre MD Jun 22, 2017 21:47
[2017-06-22 20:00] VITALS: BP 134/81; PULSE 90; PULSE 92; RESP 20; TEMP 98.1; O2SAT 95
[2017-06-23] VITALS: BP 145/82; PULSE 92; RESP 20; TEMP 96.7; O2SAT 98
[2017-06-23] MEDS ORDERED: ACETAMINOPHEN 325 MG TAB PO PRN (01:00)
[2017-06-23] MEDS ORDERED: diphenhydrAMINE HCL 25 MG CAP PO PRN (01:00)
[2017-06-23 04:00] VITALS: BP 141/85; PULSE 98; RESP 20; TEMP 96.9; O2SAT 99
[2017-06-23] MEDS: CHLORHEXIDINE GLUCONATE 2 % 1 PACK (2 CLOTHS) TOP SCH (04:00)
[2017-06-23 08:00] VITALS: BP 134/91; PULSE 93; RESP 17; TEMP 97.1; O2SAT 97
[2017-06-23] MEDS: DOCUSATE SODIUM 50 MG/SENNA 8.6 MG TAB PO SCH (08:15)
[2017-06-23] MEDS: CLARITHROMYCIN 500 MG TAB PO SCH (08:15)
[2017-06-23] MEDS: CARVEDILOL 3.125 MG TAB PO SCH (08:15)
[2017-06-23] MEDS: AMOXICILLIN (TRIHYDRATE) 500 MG CAP PO SCH (08:15)
[2017-06-23] MEDS: SODIUM CHLORIDE 0.9% FLUSH 10 ML FLUSH SCH (08:15)
--- NOTE | 2017-06-23 11:18 | RADRPT ---
EXAM DATE/TIME: 06/23/2017 09:53 [facility] COMPARISON: CT ABDOMEN & PELVIS W CONTRAST, June 18, 2017, 21:10. INDICATIONS : Anemia. FLUORO TIME: 0.2 minutes IMAGE COUNT: 11 CONTRAST: Entero Vu 24% Barium Sulfate (24% w/v, 20% w/w) IMAGING TIME(S): 15 min, 30 min, 45 min MEDICAL HISTORY : Gastroesophageal reflux disease. Hepatitis C. SURGICAL HISTORY : Umbilical hernia repair. ENCOUNTER: Subsequent ACUITY: 4 - 6 days PAIN SCORE: 0/10 LOCATION: Bilateral abdomen FINDINGS: The animation director radiograph is unremarkable. IVC filter is in place. The bowel gas is nonspecific without a ny signs of obstruction or free air. The entire small bowel is visualized and no definite strictures, mass or mucosal lesion is identified. The terminal ileum appears intact. CONCLUSION: Unremarkable small bowel examination. Starr Rapp MD on June 23, 2017 at 11:16 Board Certified Radiologist. This report was verified electronically.
[2017-06-23 12:00] VITALS: BP 172/83; PULSE 83; RESP 18; TEMP 96.9; O2SAT 97
[2017-06-23] MEDS: PANTOPRAZOLE SODIUM 40 MG VIAL IV SCH (12:49)
[2017-06-23] MEDS ORDERED: LISI-519 PO (13:12)
--- NOTE | 2017-06-23 13:12 | HHI.PR ---
Subjective Remarks resting comfortably with no distress. no abdominal pain, nausea, vomiting. d/w the RN and no acute issues over night. Objective Vitals Vital Signs Date Time Temp Pulse Resp B/P Pulse Ox O2 Delivery O2 Flow Rate FiO2 06/23/17 12:00 96.9 83 18 172/83 97 06/23/17 08:00 97.1 93 17 134/91 97 06/23/17 08:00 97.1 93 17 134/91 97 06/23/17 04:00 96.9 98 20 141/85 99 06/23/17 00:00 96.7 92 20 145/82 98 06/22/17 20:00 90 06/22/17 20:00 98.1 92 20 134/81 95 06/22/17 16:00 96.7 94 17 162/81 99 I/O 06/22/17 06/22/17 06/22/17 06/23/17 06/23/17 06/23/17 06:59 14:59 22:59 06:59 14:59 22:59 Intake Total 0 ml 600 ml 480 ml 0 ml 367 ml Output Total 850 ml 1000 ml 650 ml Balance -850 ml -400 ml -170 ml 0 ml 367 ml Intake Oral 0 ml 600 ml 480 ml 0 ml IV Total 10 ml Packed Cells 357 ml Output Urine Total 850 ml 1000 ml 650 ml # Voids 1 # Bowel Movements 0 0 0 0 Result Diagram: 06/22/17 0424 06/22/17 0424 Imaging Last Impressions Small Bowel X-Ray 06/23/17 0000 Signed Impressions: Service Date/Time: Friday, June 23, 2017 09:53 - CONCLUSION: Unremarkable small bowel examination. Starr Rapp MD IVC Filter Placement X-Ray 06/20/17 0000 Signed Impressions: Service Date/Time: Tuesday, June 20, 2017 10:29 - CONCLUSION: Uncomplicated inferior vena cava filter placement as above. This is a removable filter which can be retrieved up to one year from its placement. This was explained to the patient. Villa Gallagher Jr., MD Upper Extremity Ultrasound 06/19/17 0000 Signed Impressions: Service Date/Time: Monday, June 19, 2017 14:25 - CONCLUSION: Bilateral cephalic venous superficial thrombosis. No evidence of deep venous thrombosis Feliciano Echeverria MD Lower Extremity Ultrasound 06/19/17 0000 Signed Impressions: Service Date/Time: Monday, June 19, 2017 13:35 - CONCLUSION: Negative for deep venous thrombosis. Zheng Forte MD FACR Abdomen/Pelvis CT [id number]/18/[id number] Signed Impressions: Service Date/Time: Sunday, June 18, 2017 21:10 - CONCLUSION: 1. Constipation. 2. Small fat containing umbilical hernia. 3. Bladder wall thickening. 4. Nonobstructing right renal calculus measures 3 mm. 5. Multiple hepatic and left renal cysts. Aly Mora MD Chest X-Ray [id number]/18/[id number] Signed Impressions: Service Date/Time: Sunday, June 18, 2017 19:06 - CONCLUSION: No acute disease. Aly Mora MD Objective Remarks LGENERAL: This is a well-nourished, well-developed patient, in no apparent distress. CARDIOVASCULAR: Regular rate and regular rhythm without murmurs, gallops, or rubs. RESPIRATORY: Clear to auscultation. Breath sounds equal bilaterally. No wheezes , rales, or rhonchi. GASTROINTESTINAL: Abdomen soft, non-tender, nondistended. Normal, active bowel sounds MUSCULOSKELETAL: Extremities with bilateral pedal edema. NEURO: Alert & Oriented x4 to person, place, time, situation. Moves all ext x4 Procedures IVC filter placement EGD/ colonoscopy Medications and IVs Current Medications Sodium Chloride 2 ml 2 ml UNSCH PRN IVF FLUSH AFTER USING IV ACCESS; Start at 19:15 Sodium Chloride 1,000 ml @ 1,000 mls/hr Q1H IV Last administered on 06/18/17 19:09; Start 06/18/17 at 19:06; Stop 06/18/17 at 20:05; Status DC Sodium Chloride 1,000 ml @ 1,000 mls/hr Q1H IV Last administered on 06/18/17 19:59; Start 06/18/17 at 19:37; Stop 06/18/17 at 20:36; Status DC Pantoprazole Sodium 80 mg/ Sodium Chloride 35 ml @ 420 mls/hr ONCE ONCE IV Last administered on 06/18/17 20:42; Start 06/18/17 at 20:00; Stop 06/18/17 at 20:04; Status DC Pantoprazole Sodium 80 mg/ Sodium Chloride 100 ml @ 10 mls/hr Q10H IV Last administered on 06/18/17 20:42; Start 06/18/17 at 20:00; Stop 06/18/17 at 22:08 ; Status DC Sodium Chloride 250 ml @ 15 mls/hr ONCE ONCE IV Last administered on 21:56; Start 06/18/17 at 20:00; Stop 06/19/17 at 12:39; Status DC Sodium Chloride 1,000 ml @ 1,000 mls/hr Q1H IV Last administered on 06/18/17 20:42; Start 06/18/17 at 19:49; Stop 06/18/17 at 20:48; Status DC Prothrombin Complex Concent (Human)/Syringe / Bag (Kcentra Inj/ Syringe/Bag) 0 ml @ 500 mls/hr ONCE ONCE IV Last administered on 06/18/17 21:05; Start 06/18 at 20:30; Stop 06/18/17 at 20:31; Status DC Iohexol 95 ml 95 ml STK-MED ONCE IV Last administered on 06/18/17 21:12; Start 06/18/17 at 21:12; Stop 06/18/17 at 21:13; Status DC Sodium Chloride (NS 1000 ml Inj) 1,000 ml @ 84 mls/hr [id number] IV Last administered on 06/20/17 09:27; Start 06/18/17 at 21:42; Stop 06/20/17 at 12:06 ; Status DC Sodium Chloride (NS Flush) 2 ml UNSCH PRN .XX FLUSH AFTER USING IV ACCESS Last administered on 06/20/17 22:17; Start 06/18/17 at 21:45 Sodium Chloride (NS Flush) 2 ml BID .XX Last administered on 06/23/17 08:15; Start 06/19/17 at 09:00 Acetaminophen (Tylenol) 650 mg Q6H PRN PO PAIN 1-10 AND/OR FEVER >101F Last administered on 06/23/17 08:15; Start 06/18/17 at 21:45 Morphine Sulfate (Morphine Inj) 2 mg Q2H PRN IV PAIN SCALE 6 TO 10 Last administered on 06/21/17 15:53; Start 06/18/17 at 21:45 Pantoprazole Sodium (Protonix Inj) 40 mg Q12H IV Last administered on 12:49; Start 06/18/17 at 23:00 Ondansetron HCl (Zofran Inj) 4 mg Q6H PRN IV NAUSEA OR VOMITING; Start at 21:45 Albuterol/ Ipratropium (Duoneb Neb) 1 ampule Q2HR NEB PRN INH WHEEZING; Start 06/18/17 at 21:45 Miscellaneous Information 1 Q361D XX ; Start 06/18/17 at 21:45 Chlorhexidine Gluconate (Chlorhexidine 2% Cloth) 3 pack Taper DAILY@04 TOP Last administered on 06/19/17 04:00; Start 06/19/17 at 04:00; Stop 06/15/18 at 03:59 Chlorhexidine Gluconate (Chlorhexidine 2% Cloth) 3 pack UNSCH PRN TOP HYGIENIC CARE; Start 06/18/17 at 21:45 Senna/Docusate Sodium (Neva-Colace) 1 tab BID PO Last administered on 08:15; Start 06/19/17 at 09:00 Magnesium Hydroxide (Milk Of Magnesia Liq) 30 ml Q12H PRN PO MILD - MODERATE CONSTIPATION; Start 06/18/17 at 21:45 Sennosides (Senokot) 17.2 mg Q12H PRN PO MODERATE - SEVERE CONSTIPATION; Start 06/18/17 at 21:45 Bisacodyl (Dulcolax Supp) 10 mg DAILY PRN RECTAL SEVERE CONSITIPATION; Start at 21:45 Lactulose (Lactulose Liq) 30 ml DAILY PRN PO SEVERE CONSITIPATION Last administered on 06/22/17 22:37; Start 06/18/17 at 21:45 Polyethylene Glycol/ Electrolytes (Colyte Liq) 4,000 ml ONCE ONCE PO Last administered on 06/19/17 10:00; Start 06/19/17 at 10:00; Stop 06/19/17 at 10:04 ; Status DC Propofol (Diprivan 200 Mg/20 ml Inj) 150 mg STK-MED ONCE IV ; Start 06/19/17 at 09:36; Stop 06/19/17 at 09:59; Status DC Miscellaneous Information ALL NURSING DEPARTME... UNSCH PRN .XX SEE LABEL COMMENTS; Start 06/19/17 at 10:15; Stop 06/20/17 at 10:14; Status DC Fentanyl Citrate (fentaNYL INJ) 100 mcg STK-MED ONCE .ROUTE ; Start 06/20/17 at 10:40; Stop 06/20/17 at 10:41; Status DC Lorazepam (Ativan Inj) 2 mg STK-MED ONCE .ROUTE ; Start 06/20/17 at 10:50; Stop 06/20/17 at 10:51; Status DC Iohexol (Omnipaque 350 Inj) 30 ml STK-MED ONCE IV Last administered on 11:17; Start 06/20/17 at 11:17; Stop 06/20/17 at 11:18; Status DC Carvedilol 3.125 mg 3.125 mg Q12HR PO Last administered on 06/23/17 08:15; Start 06/20/17 at 21:00 Potassium Chloride (KCl 20 Meq Premix Inj) 100 ml @ 50 mls/hr Q2H IV Last administered on 06/20/17 14:00; Start 06/20/17 at 12:00; Stop 06/20/17 at 15:59 ; Status DC Lorazepam (Ativan Inj) 1 mg STK-MED ONCE IV Last administered on 06/20/17 11: 00; Start 06/20/17 at 11:00; Stop 06/20/17 at 14:19; Status DC Fentanyl Citrate (fentaNYL INJ) 100 mcg STK-MED ONCE IV Last administered on 11:00; Start 06/20/17 at 11:00; Stop 06/20/17 at 14:21; Status DC Propofol (Diprivan 200 Mg/20 ml Inj) 120 mg STK-MED ONCE IV ; Start 06/20/17 at 15:48; Stop 06/20/17 at 16:06; Status DC Potassium Chloride (KCl) 30 meq ONCE ONCE PO Last administered on 06/21/17 13 :20; Start 06/21/17 at 12:15; Stop 06/21/17 at 12:47; Status DC Potassium Chloride (KCl) 30 meq ONCE ONCE PO Last administered on 06/21/17 16 :04; Start 06/21/17 at 16:00; Stop 06/21/17 at 16:33; Status DC Potassium Chloride (KCl) 30 meq ONCE ONCE PO Last administered on 06/21/17 19 :51; Start 06/21/17 at 20:00; Stop 06/21/17 at 20:01; Status DC Clarithromycin (Biaxin) 500 mg Q12HR PO Last administered on 06/23/17 08:15; Start 06/21/17 at 21:00; Stop 06/28/17 at 20:59 Amoxicillin (Trimox) 1,000 mg BID PO Last administered on 06/23/17 08:15; Start 06/21/17 at 21:00; Stop 06/28/17 at 20:59 Magnesium Citrate (Citroma Liq) 300 ml ONCE ONCE PO Last administered on 12:13; Start 06/22/17 at 12:00; Stop 06/22/17 at 12:01; Status DC Magnesium Citrate (Citroma Liq) 300 ml ONCE ONCE PO Last administered on 18:08; Start 06/22/17 at 18:00; Stop 06/22/17 at 18:01; Status DC Bisacodyl (Dulcolax Ec) 10 mg ONCE ONCE PO Last administered on 06/22/17 18: 08; Start 06/22/17 at 18:00; Stop 06/22/17 at 18:01; Status DC Bisacodyl (Dulcolax Ec) 10 mg ONCE ONCE PO Last administered on 06/22/17 20: 44; Start 06/22/17 at 21:00; Stop 06/22/17 at 21:01; Status DC Acetaminophen (Tylenol) 650MG [ 30 MINS PRIOR] UNSCH X1 PRN PO PRE-MEDICATE FOR BLOOD PRODUCT Last administered on 06/23/17 03:21; Start 06/23/17 at 01:00 ; Stop 06/23/17 at 09:00; Status DC Diphenhydramine HCl (Benadryl) 25MG 30 MINS PRIOR UNSCH X1 PRN PO PRE- MEDICATE FOR BLOOD PRODUCT Last administered on 06/23/17 03:21; Start 06/23/17 at 01:00; Stop 06/23/17 at 09:00; Status DC A/P Assessment and Plan A/P Probable GI bleed - Coumadin reversed with Kcentra and vitamin K. - GI following. Status post EGD which showed gastritis. s/p colonoscopy with external hemorrhoids. -small bowel XR unremarkable. -positive for H-Pylori- continue with amoxicillin, clarithromycin and protonix. -capsule endoscopy as outpatient. Symptomatic Anemia. Patient admits he had one episode of black stool prior to coming to the hospital. -H/H fairly stable. Acute kidney injury: Resolved with IV fluid. - Monitor trend of creatinine and strict I's and O's DVT of lower extremity -s/p IVC filter placement - Hematology following. - Ultrasound Doppler bilateral upper extremities shows bilateral cephalic superficial vein thrombosis and lower extremities Dopplers are negative -d/w the hematology; coumadin will be stopped. Hypertension -Initially hypotensive. Lisinopril, Coreg, and Lasix on hold. Blood pressure improving, slightly tachycardic. -2-D echo with EF 55%. - Resumed Coreg and lisinopril at a lower dose- f/u as outpatient. History of CHF: resume lasix. Hypokalemia: Replaced. hepatitis C- f/u as outpatient. DVT prophylaxis - Teds SCDs - Discharge Planning cleared by hematology for discharge. dc home today. see med list. f/u; pcp,hematology and GI. d/w the patient. d/w the RN and hematology. time spent 31 min. Tiffany Page MD Jun 23, 2017 13:12
--- NOTE | 2017-06-23 13:13 | HHI.DCPOC ---
Discharge Care Plan Diagnosis: (1) Melena Your Health Problems Are: Bleeding Tendency Goals to Promote Your Health * To prevent worsening of your condition and complications * To maintain your health at the optimal level Directions to Meet Your Goals Take your medications as prescribed Follow your dietary instruction Follow activity as directed Keep your appointments as scheduled Take your immunizations and boosters as scheduled If your symptoms worsen call your PCP, if no PCP go to Urgent Care Center or Emergency Room Smoking is Dangerous to Your Health. Avoid second hand smoke Call the 24-hour hour crisis hotline for domestic abuse at Tiffany Page MD Jun 23, 2017 13:13
--- NOTE | 2017-06-23 13:13 | HHI.DS ---
Discharge Summary Admission Date Jun 18, 2017 at 20:18 Discharge Date: Jun 23, 2017 Admitting Diagnosis GI bleed, hypotension (1) Melena ICD Code: K92.1 Diagnosis: Principal Procedures IVC filter placement EGD/ colonoscopy Brief History - From Admission 61-year-old male patient of the AL with history of hypertension, DVT in the left lower extremity diagnosed in November, on Coumadin, who presents for evaluation of dyspnea. Symptoms started yesterday evening. He reports dyspnea with exertion which is new. While in triage he became diaphoretic and when his blood pressure was rechecked in the right upper extremity his blood pressure was 70s. The patient denies any chest pain, headache, blurred vision, focal weakness in the extremities, slurred speech, facial droop. He has been compliant with his Coumadin. He denies any obvious black or tarry stools, hematochezia, hematemesis, denies cough congestion, nausea or vomiting, abdominal pain, fevers or chills. While in the emergency department he became again diaphoretic and his H&H dropped from 8.9-7.9. He is now receiving 2 units of PRBC emergently. CBC/BMP: 06/22/17 0424 06/22/17 0424 Significant Findings Laboratory Tests Test 06/20/17 06/21/17 06/22/17 19:42 08:28 04:24 Hemoglobin 9.0 GM/DL 9.2 GM/DL 8.7 GM/DL (13.0-17.0) (13.0-17.0) (13.0-17.0) Hematocrit 26.3 % 26.6 % 25.5 % (39.0-51.0) (39.0-51.0) (39.0-51.0) Red Blood Count 2.94 MIL/MM3 2.78 MIL/MM3 (4.50-5.90) (4.50-5.90) Platelet Count 134 TH/MM3 132 TH/MM3 (150-450) (150-450) Potassium Level 2.9 MEQ/L (3.5-5.1) Chloride Level 109 MEQ/L (98-107) Calcium Level 7.9 MG/DL (8.5-10.1) Imaging Last Impressions Small Bowel X-Ray 06/23/17 0000 Signed Impressions: Service Date/Time: Friday, June 23, 2017 09:53 - CONCLUSION: Unremarkable small bowel examination. Starr Rapp MD IVC Filter Placement X-Ray 06/20/17 0000 Signed Impressions: Service Date/Time: Tuesday, June 20, 2017 10:29 - CONCLUSION: Uncomplicated inferior vena cava filter placement as above. This is a removable filter which can be retrieved up to one year from its placement. This was explained to the patient. Villa Gallagher Jr., MD Upper Extremity Ultrasound 06/19/17 0000 Signed Impressions: Service Date/Time: Monday, June 19, 2017 14:25 - CONCLUSION: Bilateral cephalic venous superficial thrombosis. No evidence of deep venous thrombosis Feliciano Echeverria MD Lower Extremity Ultrasound 06/19/17 0000 Signed Impressions: Service Date/Time: Monday, June 19, 2017 13:35 - CONCLUSION: Negative for deep venous thrombosis. Zheng Forte MD FACR Abdomen/Pelvis CT [id number] Signed Impressions: Service Date/Time: Sunday, June 18, 2017 21:10 - CONCLUSION: 1. Constipation. 2. Small fat containing umbilical hernia. 3. Bladder wall thickening. 4. Nonobstructing right renal calculus measures 3 mm. 5. Multiple hepatic and left renal cysts. Aly Mora MD Chest X-Ray 06/18/17 1906 Signed Impressions: Service Date/Time: Sunday, June 18, 2017 19:06 - CONCLUSION: No acute disease. Aly Mora MD PE at Discharge LGENERAL: This is a well-nourished, well-developed patient, in no apparent distress. CARDIOVASCULAR: Regular rate and regular rhythm without murmurs, gallops, or rubs. RESPIRATORY: Clear to auscultation. Breath sounds equal bilaterally. No wheezes , rales, or rhonchi. GASTROINTESTINAL: Abdomen soft, non-tender, nondistended. Normal, active bowel sounds MUSCULOSKELETAL: Extremities with bilateral pedal edema. NEURO: Alert & Oriented x4 to person, place, time, situation. Moves all ext x4 Hospital Course Probable GI bleed - Coumadin reversed with Kcentra and vitamin K. - GI following. Status post EGD which showed gastritis. s/p colonoscopy with external hemorrhoids. -small bowel XR unremarkable. -positive for H-Pylori- continue with amoxicillin, clarithromycin and protonix. -capsule endoscopy as outpatient. Symptomatic Anemia. Patient admits he had one episode of black stool prior to coming to the hospital. -H/H fairly stable. Acute kidney injury: Resolved with IV fluid. - Monitor trend of creatinine and strict I's and O's DVT of lower extremity -s/p IVC filter placement - Hematology following. - Ultrasound Doppler bilateral upper extremities shows bilateral cephalic superficial vein thrombosis and lower extremities Dopplers are negative -d/w the hematology; coumadin will be stopped. Hypertension -Initially hypotensive. Lisinopril, Coreg, and Lasix on hold. Blood pressure improving, slightly tachycardic. -2-D echo with EF 55%. - Resumed Coreg and lisinopril at a lower dose- f/u as outpatient. History of CHF: resume lasix. Hypokalemia: Replaced. hepatitis C- f/u as outpatient. DVT prophylaxis - Teds SCDs - Pt Condition on Discharge: Good Discharge Disposition: Discharge Home Discharge Time: > 30 minutes Discharge Instructions DIET: Follow Instructions for: Heart Healthy Diet Activities you can perform: Regular-No Restrictions Follow up Referrals: Gastroenterology Oncology PCP Follow-up New Medications: Lisinopril (Lisinopril) 5 Mg Tab 5 MG PO DAILY Blood Pressure Management #30 Ref 0 TAB Pantoprazole (Protonix) 40 Mg Tab 40 MG PO DAILY Reflux #30 Ref 0 TAB Amoxicillin (Amoxicillin) 500 Mg Cap 1000 MG PO BID h pylori Days 6 Ref 0 CAP Carvedilol (Coreg) 3.125 Mg Tab 3.125 MG PO Q12HR hypertension Days 30 Ref 0 TAB Clarithromycin (Clarithromycin) 500 Mg Tab 500 MG PO Q12HR h pylori Days 6 Ref 0 TAB Changed Medications: Furosemide (Furosemide) 40 Mg Tab 40 MG PO DAILY edema Days 30 Ref 0 TAB (Changed from: BID) Potassium Chloride ER (Potassium Chloride ER) 20 Meq Tab 20 MEQ PO DAILY Electrolyte Replacement #30 Ref 0 TAB (Changed from: BID) Discontinued Medications: Carvedilol (Carvedilol) 12.5 Mg Tab 12.5 MG PO BID Ref 0 TAB Lisinopril (Lisinopril) 40 Mg Tab 40 MG PO DAILY Blood Pressure Management Ref 0 TAB Warfarin (Warfarin) 5 Mg Tab 5 MG PO DAILY Blood Clot Prevention Ref 0 TAB Warfarin (Warfarin) 1 Mg Tab 1.5 MG PO DAILY Blood Clot Prevention Ref 0 TAB Tiffany Page MD Jun 23, 2017 13:13
[2017-06-24] MEDS ORDERED: MACR100C2 PO (14:43)
== END 2017-06-23 14:49 | disposition home or self-care (01) | DRG 357 ==
LOC: NEPE 18:24 → NEDA 20:18 → HCVR 06-19 00:15 → HCIS 06-19 10:49 → N07B 06-20 21:53
PROVIDERS: ADMIT Internal Medicine; ATTEND Internal Medicine
PROC: 0T9B70Z Drainage of Bladder with Drainage Device, Via Natural or Artificial Opening (ICD-10-PCS; principal; 2017-06-18)
PROC: 30233N1 Transfusion of Nonautologous Red Blood Cells into Peripheral Vein, Percutaneous Approach (ICD-10-PCS; 2017-06-18)
PROC: 0DB68ZX Excision of Stomach, Via Natural or Artificial Opening Endoscopic, Diagnostic (ICD-10-PCS; 2017-06-19)
PROC: 06H03DZ Insertion of Intraluminal Device into Inferior Vena Cava, Percutaneous Approach (ICD-10-PCS; 2017-06-20)
PROC: 0DJD8ZZ Inspection of Lower Intestinal Tract, Via Natural or Artificial Opening Endoscopic (ICD-10-PCS; 2017-06-20)
DX: K92.1 Melena (principal); N17.9 Acute kidney failure, unspecified; D62 Acute posthemorrhagic anemia; I11.0 Hypertensive heart disease with heart failure; I95.9 Hypotension, unspecified; I50.9 Heart failure, unspecified; N28.1 Cyst of kidney, acquired; N20.0 Calculus of kidney; K42.9 Umbilical hernia without obstruction or gangrene; K59.09 Other constipation; F41.9 Anxiety disorder, unspecified; F32.9 Major depressive disorder, single episode, unspecified; E78.00 Pure hypercholesterolemia, unspecified; K21.9 Gastro-esophageal reflux disease without esophagitis; R61 Generalized hyperhidrosis; R79.1 Abnormal coagulation profile; M19.012 Primary osteoarthritis, left shoulder; E86.9 Volume depletion, unspecified; H53.8 Other visual disturbances; K29.70 Gastritis, unspecified, without bleeding; K64.4 Residual hemorrhoidal skin tags; R00.0 Tachycardia, unspecified; E87.6 Hypokalemia; B19.20 Unspecified viral hepatitis C without hepatic coma; Z79.01 Long term (current) use of anticoagulants; Z87.891 Personal history of nicotine dependence; Z86.718 Personal history of other venous thrombosis and embolism
CPT/HCPCS: 36430; 37191; 51702; 71010; 74177; 74250; 76937; 80048; 80053; 80076; 82550; 82552; 82607; 82747; 82948; 83010; 83605; 83615; 83735; 83880; 84100; 84132; 84155; 84484; 85014; 85018; 85025; 85027; 85610; 85730; 86705; 86803; 86850; 86880; 86900; 86901; 86920; 87040; 87340; 87641; 88305; 88312; 93005; 93306; 93970; 94150; C1769; C1880; C9113; C9132; J2060; J2270; J3010; J3480; J7030; J7050; P9016; Q9967

== ENCOUNTER 2017-06-24 12:57 | Emergency (ER) | payer OTHER ==
[~2017-06-24] VITALS: Ht 177.8 cm; Wt 115.0 kg
[~2017-06-24 12:57] MED LIST changes: +AMOX500C PO; +CARV3.125 PO; +CLAR500T PO; -CYCL5TAB PO; +FURO40TA PO; -HYDR-3533 PO; -LISI-515 PO; +LISI-519 PO; +POTA-163 PO; +PROT40TA PO; -SPIR25TA PO; -WARF-23 PO; -XARE15TA PO; -carvedilol; -lasix; -potassium
[2017-06-24 12:59] VITALS: BP 191/93; PULSE 90; RESP 18; TEMP 98.4; O2SAT 100
--- NOTE | 2017-06-24 13:04 | PD ---
Physical Exam Date Seen by Provider: Jun 24, 2017 Time Seen by Provider: 13:02 Narrative 61 yo male here for evaluation of hematuria. Started today. Was recently admitted for GI bleed and infection. Taking antibiotics for this. Never had this before. No fevers, chills or sweats. Dysuria. Vitals are stable in triage. Awaiting bed placement. Data Data Last Documented VS Vital Signs Date Time Temp Pulse Resp B/P Pulse Ox O2 Delivery O2 Flow Rate FiO2 06/24/17 12:59 98.4 90 18 191/93 100 MDM Medical Record Reviewed: Yes Supervised Visit with HERMELINDO: No Abdulaziz Fontaine Jun 24, 2017 13:04
--- NOTE | 2017-06-24 13:30 | PD ---
HPI Chief Complaint: Complaint Time Seen by Provider: 13:05 Travel History International Travel<30 days: No Contact w/Intl Traveler<30days: No Traveled to known affect area: No History of Present Illness HPI This is a 61-year-old male who presents to the emergency department with hematuria. He says the hematuria started this morning and he is noticed bright red blood from his penis that he can't stop. He says he is having bleeding from his penis that he can't stop. He was just discharged from the hospital yesterday having been admitted for GI bleeding in the setting of Coumadin use. He was reversed and Coumadin was discontinued. He had an IVC filter placed. He also did have a Palafox catheter in which he thinks was removed either 2 days ago her yesterday morning. He didn't have any bleeding in the hospital. He says he has a little bit of a headache but denies lightheadedness or dizziness. He does have some pain when he urinates. His symptoms are moderate severity and constant. He denies any fevers or chills. He is not currently on any blood thinners. PFSH Past Medical History Hx Anticoagulant Therapy: Yes (warfarin) Arthritis: Yes Anxiety: Yes Depression: Yes Cancer: Yes Cardiovascular Problems: Yes High Cholesterol: Yes Chest Pain: Yes Diminished Hearing: No Gastrointestinal Disorders: Yes (intermittent constipation, hepatitis C) GERD: Yes Hepatitis: Yes Hypertension: Yes Implanted Vascular Access Dvce: Yes Musculoskeletal: Yes Neurologic: Yes Psychiatric: Yes Respiratory: Yes Immunizations Current: Yes Tetanus Vaccination: > 5 Years Influenza Vaccination: Yes Past Surgical History Abdominal Surgery: Yes (hernia rpr 2006) Body Medical Devices: hardware in neck, unsure if metal Other Surgery: Yes (spinal infusion 2014) Social History Alcohol Use: No (PT DENIES) Tobacco Use: No Substance Use: No (PT DENIES ) Allergies-Medications (Allergen,Severity, Reaction): Coded Allergies: No Known Allergies (Unverified , 06/24/17) Reported Meds & Prescriptions Reported Meds & Active Scripts Active Lisinopril 5 Mg Tab 5 Mg PO DAILY Clarithromycin 500 Mg Tab 500 Mg PO Q12HR 6 Days Amoxicillin 500 Mg Cap 1,000 Mg PO BID 6 Days Protonix (Pantoprazole Sodium) 40 Mg Tab 40 Mg PO DAILY Coreg (Carvedilol) 3.125 Mg Tab 3.125 Mg PO Q12HR 30 Days Potassium Chloride ER (Potassium Chloride) 20 Meq Tab 20 Meq PO DAILY Furosemide 40 Mg Tab 40 Mg PO DAILY 30 Days Review of Systems Except as stated in HPI: all other systems reviewed are Neg Physical Exam Narrative GENERAL:Well appearing, no acute distress SKIN: Focused skin assessment warm and dry. HEAD: Atraumatic. Normocephalic. EYES: Pupils equal and round. No injection or drainage. ENT: Moist mucous membranes NECK: Trachea midline. CARDIOVASCULAR: Regular rate and rhythm. No murmur appreciated. RESPIRATORY: Clear to auscultation. Breath sounds equal bilaterally. GASTROINTESTINAL: Abdomen soft, non-tender, nondistended. : Blood at the urethral meatus. MUSCULOSKELETAL: No obvious deformities. NEUROLOGICAL: Awake and alert. No obvious cranial nerve deficits. Moving all extremities. PSYCHIATRIC: Appropriate mood and affect; insight and judgment normal. Data Data Last Documented VS Vital Signs Date Time Temp Pulse Resp B/P Pulse Ox O2 Delivery O2 Flow Rate FiO2 06/24/17 13:10 80 17 06/24/17 12:59 98.4 191/93 100 Orders Complete Blood Count With Diff (06/24/17 13:14) Basic Metabolic Panel (Bmp) (06/24/17 13:14) Prothrombin Time / Inr (Pt) (06/24/17 13:14) Act Partial Throm Time (Ptt) (06/24/17 13:14) ^ Insert Iv (06/24/17 13:14) Urinalysis - C+S If Indicated (06/24/17 13:14) Urine Culture (06/24/17 12:30) Labs Laboratory Tests Test 06/24/17 06/24/17 06/24/17 12:30 13:00 14:00 Urine Color YELLOW Urine Turbidity CLEAR Urine pH 6.0 Urine Specific [place] 1.006 Urine Protein TRACE mg/dL Urine Glucose (UA) NEG mg/dL Urine Ketones NEG mg/dL Urine Occult Blood LARGE Urine Nitrite NEG Urine Bilirubin NEG Urine Urobilinogen LESS THAN 2.0 MG/DL Urine Leukocyte Esterase MOD Urine RBC /hpf Urine WBC 75 /hpf Urine WBC Clumps RARE Urine Squamous Epithelial <1 /hpf Cells Microscopic Urinalysis Comment CULTURE INDICATED Prothrombin Time 11.6 SEC Prothromb Time International 1.0 RATIO Ratio Activated Partial 24.0 SEC Thromboplast Time Sodium Level 139 MEQ/L Potassium Level 3.7 MEQ/L Chloride Level 106 MEQ/L Carbon Dioxide Level 28.1 MEQ/L Anion Gap 5 MEQ/L Blood Urea Nitrogen 15 MG/DL Creatinine 0.91 MG/DL Estimat Glomerular Filtration 102 ML/MIN Rate Random Glucose 113 MG/DL Calcium Level 8.1 MG/DL White Blood Count 11.7 TH/MM3 Red Blood Count 3.30 MIL/MM3 Hemoglobin 10.4 GM/DL Hematocrit 30.0 % Mean Corpuscular Volume 91.0 FL Mean Corpuscular Hemoglobin 31.6 PG Mean Corpuscular Hemoglobin 34.8 % Concent Red Cell Distribution Width 13.5 % Platelet Count 189 TH/MM3 Mean Platelet Volume 8.0 FL Neutrophils (%) (Auto) 69.7 % Lymphocytes (%) (Auto) 17.8 % Monocytes (%) (Auto) 9.1 % Eosinophils (%) (Auto) 2.9 % Basophils (%) (Auto) 0.5 % Neutrophils # (Auto) 8.1 TH/MM3 Lymphocytes # (Auto) 2.1 TH/MM3 Monocytes # (Auto) 1.1 TH/MM3 Eosinophils # (Auto) 0.3 TH/MM3 Basophils # (Auto) 0.1 TH/MM3 CBC Comment DIFF FINAL Differential Comment MDM Medical Decision Making Medical Screen Exam Complete: Yes Emergency Medical Condition: Yes Medical Record Reviewed: Yes (patient was just discharged from the hospital having been admitted in the setting of a GI bleed on Coumadin. His Coumadin was reversed. During this admission he did have a Palafox catheter for a short period of time.) Interpretation(s) Mild leukocytosis Anemia improved from prior Electrolytes are reassuring INR is normal Urinalysis: Some white blood cell clumps and large amount hematuria Differential Diagnosis urethral trauma, urinary tract infection, bph, coagulopathy Narrative Course This is a 61-year-old male who presents to the emergency Department with nick hematuria. He did have a Palafox catheter and in the hospital 2 days ago. Here in the emergency department he had a large amount of blood initially which he scattered all over the bathroom and looked like nick hematuria. He had some blood coming from the urethral meatus. Labs are obtained which were consistent with baseline. He does have white blood cell clumps on his urinalysis concerning for an infection. He had a second episode of urination which looked much more clear and had less blood than prior. I suspect the patient had some urethral trauma secondary to his Palafox catheter however his symptoms seem to be subsiding and I think he's safe for discharge. He is not on any blood thinners at this time. He was advised to follow-up with the urologist and I'll place him on an antibiotic. He should return to the emergency department if his bleeding worsens which I explained to him. I did discuss this with Dr. Martino and he thought it was a reasonable plan. Diagnosis Primary Impression: Hematuria Qualified Code: R31.0 - Gross hematuria Patient Instructions: General Instructions Additional Instructions: If you develop increasing bleeding from your penis, lightheadedness, dizziness or worsening symptoms return to the emergency department. It's very important that you follow-up with a urologist as an outpatient. Med/Other Pt SpecificInfo: Prescription(s) given Scripts Nitrofurantoin Monohydrate Macrocrystals (Macrobid)100 Mg Css288 Mg PO BID 7 Days Ref 0 Prov:Fay Mckeon MD 06/24/17 Disposition: 01 DISCHARGE HOME Condition: Stable Fay Mckeon MD Jun 24, 2017 13:30
[2017-06-24 13:58] LABS: BLOOD, URINE LARGE (NEG); COMMENT (UR) CULTURE INDICATED; CULTURE IF INDICATED CULTURE INDICATED; GLUCOSE,URINE NEG (NEG); KETONE, URINE NEG (NEG); NITRITE,URINE NEG (NEG); SQUAMOUS EPITHELIAL CELL URINE <1 /hpf (0-5); URINE COLOR YELLOW (YELLW/STRAW)
[2017-06-24 14:00] LABS: PROTHROMBIN TIME - PATIENT 11.6 SEC (9.8-11.6)
[2017-06-24 14:09] LABS: BICARBONATE 28.1 MEQ/L (21.0-32.0); POTASSIUM 3.7 MEQ/L (3.5-5.1)
[2017-06-24 14:18] LABS: AUTOMATED NEUTROPHIL # 8.1 TH/MM3 (1.8-7.7); BASOPHIL # 0.1 TH/MM3 (0-0.2); BASOPHIL % 0.5 % (0.0-2.0); EOSINOPHIL # 0.3 TH/MM3 (0-0.4); EOSINOPHIL % 2.9 % (0.0-4.0); HEMO FLAGS DIFF FINAL; LYMPH % 17.8 % (9.0-44.0); LYMPHOCYTE # 2.1 TH/MM3 (1.0-4.8); MEAN CORPUSCULAR HEMOGLOBIN 31.6 PG (27.0-34.0); MEAN CORPUSCULAR HGB CONC 34.8 % (32.0-36.0); MONO % 9.1 % (0.0-8.0); NEUT % 69.7 % (16.0-70.0); PLATELET COUNT 189 TH/MM3 (150-450); RED CELL DISTRIBUTION WIDTH 13.5 % (11.6-17.2); WHITE BLOOD COUNT 11.7 TH/MM3 (4.0-11.0)
[2017-06-24] MEDS ORDERED: MACR100C2 PO (14:43)
[2017-06-24 14:48] VITALS: BP 156/83; TEMP 97.8
== END 2017-06-24 14:52 | disposition home or self-care (01) ==
LOC: NEPD 12:57
DX: R31.0 Gross hematuria (principal); D72.829 Elevated white blood cell count, unspecified; D62 Acute posthemorrhagic anemia; R51 Headache; I10 Essential (primary) hypertension; E78.00 Pure hypercholesterolemia, unspecified; B19.20 Unspecified viral hepatitis C without hepatic coma; Z79.01 Long term (current) use of anticoagulants; K21.9 Gastro-esophageal reflux disease without esophagitis
CPT/HCPCS: 80048; 81001; 85025; 85610; 85730; 87086; 99283

== ENCOUNTER 2018-01-01 14:17 | Emergency (ER) | payer OTHER ==
[~2018-01-01 14:17] MED LIST changes: +MACR100C2 PO
[2018-01-01 14:19] VITALS: BP 161/92; PULSE 96; RESP 14; TEMP 98.3; O2SAT 100
--- NOTE | 2018-01-01 15:12 | RADRPT ---
EXAM DATE/TIME: 01/01/2018 14:48 [facility] COMPARISON: No previous studies available for comparison. INDICATIONS : Left leg pain. MEDICAL HISTORY : Hypercholesterolemia. Hypertension. Gastroesophageal reflux disease. Arthritis. Hepatitis C. SURGICAL HISTORY : Spinal fusion. ENCOUNTER: Initial ACUITY: 1 month PAIN SCORE: 3/10 LOCATION: Left leg. TECHNIQUE: Venous ultrasound of the leg was performed from the inguinal ligament to the proximal calf. Real-wil e, color Doppler and spectral tracing, compression and augmentation techniques were used. FINDINGS: Nonocclusive thrombus is noted within the left popliteal and peroneal veins. There is normal color fl ow within the left iliac, common femoral, superficial femoral and posterior tibial veins. CONCLUSION: Nonocclusive thrombus within the left popliteal and peroneal veins. Juvencio Vo MD on January 01, 2018 at 15:10 Board Certified Radiologist. This report was verified electronically.
--- NOTE | 2018-01-01 18:09 | PD ---
HPI Chief Complaint: Musculoskeletal Complaint Time Seen by Provider: 17:50 Travel History International Travel<30 days: No Contact w/Intl Traveler<30days: No Traveled to known affect area: No History of Present Illness HPI This patient has, located history. He was diagnosed a year ago with DVT. He was started on Coumadin and several months later was hospitalized for GI bleed requiring transfusion. Retrievable IVC filter was placed which is still in position. His Coumadin was stopped. He returns today having recurrent left leg symptoms. Ultrasound reveals DVT. He's had no GI bleeding problems in the last 7 months. He is not an alcohol abuser. Symptoms at this time are of moderate severity. He has some chronic swelling in both legs. No alleviating factors. No exacerbating factors. Duration of symptoms is several weeks PFSH Past Medical History Hx Anticoagulant Therapy: Yes (warfarin) Arthritis: Yes Anxiety: Yes Depression: Yes Cancer: Yes Cardiovascular Problems: Yes (HTN) High Cholesterol: Yes Chest Pain: Yes Diminished Hearing: No Gastrointestinal Disorders: Yes (intermittent constipation, hepatitis C) GERD: Yes Hepatitis: Yes Hypertension: Yes Implanted Vascular Access Dvce: Yes Musculoskeletal: Yes Neurologic: Yes Psychiatric: Yes Respiratory: Yes Immunizations Current: Yes Past Surgical History Abdominal Surgery: Yes (hernia rpr 2006) Body Medical Devices: hardware in neck, unsure if metal Other Surgery: Yes (spinal infusion 2014) Social History Alcohol Use: No (PT DENIES) Tobacco Use: No Substance Use: No (PT DENIES ) Allergies-Medications (Allergen,Severity, Reaction): Coded Allergies: No Known Allergies (Unverified Adverse Reaction, Unknown, 01/01/18) Reported Meds & Prescriptions Reported Meds & Active Scripts Active Macrobid (Nitrofurantoin Monoh/Nitrofur Macro) 100 Mg Cap 100 Mg PO BID 7 Days Lisinopril 5 Mg Tab 5 Mg PO DAILY Protonix (Pantoprazole Sodium) 40 Mg Tab 40 Mg PO DAILY Coreg (Carvedilol) 3.125 Mg Tab 3.125 Mg PO Q12HR 30 Days Potassium Chloride ER (Potassium Chloride) 20 Meq Tab 20 Meq PO DAILY Furosemide 40 Mg Tab 40 Mg PO DAILY 30 Days Review of Systems General / Constitutional: No: Fever Eyes: No: Visual changes HENT: No: Headaches Cardiovascular: Positive: Edema, No: Chest Pain or Discomfort Respiratory: No: Shortness of Breath Gastrointestinal: No: Abdominal Pain Genitourinary: No: Dysuria Musculoskeletal: Positive: Edema, Pain Skin: No Rash Neurologic: No: Weakness Psychiatric: No: Depression Endocrine: No: Polydipsia Hematologic/Lymphatic: No: Easy Bruising Physical Exam Narrative GENERAL: Well-nourished, well-developed patient in no apparent distress. SKIN: Focused skin assessment reveals no rash and nodules. Skin is Warm and dry. HEAD: Atraumatic. Normocephalic. EYES: Pupils equal and round. No scleral icterus. No injection or drainage. ENT: No nasal bleeding or discharge. Mucous membranes pink and moist. NECK: Trachea midline. No JVD. CARDIOVASCULAR: Regular rate and rhythm. No murmur appreciated. RESPIRATORY: No accessory muscle use. Clear to auscultation. Breath sounds equal bilaterally. GASTROINTESTINAL: Abdomen soft, non-tender, nondistended. Hepatic and splenic margins not palpable. MUSCULOSKELETAL: No obvious deformities. No clubbing. No cyanosis. Mild symmetric edema of the legs some hyperpigmentation stasis suggesting chronicity. No erythema or leg tenderness. NEUROLOGICAL: Awake and alert. No obvious cranial nerve deficits. Motor grossly within normal limits. Normal speech. PSYCHIATRIC: Appropriate mood and affect; insight and judgment normal. Data Data Last Documented VS Vital Signs Date Time Temp Pulse Resp B/P (MAP) Pulse Ox O2 Delivery O2 Flow Rate FiO2 01/01/18 18:36 84 18 113/75 (88) 100 Room Air 01/01/18 14:19 98.3 Orders Orders Us Leg Venous Doppler (01/01/18 ) Iv Access Insert/Monitor (01/01/18 17:59) Complete Blood Count With Diff (01/01/18 17:59) Prothrombin Time / Inr (Pt) (01/01/18 17:59) Act Partial Throm Time (Ptt) (01/01/18 17:59) Basic Metabolic Panel (Bmp) (01/01/18 17:59) Apixaban (Eliquis) (01/01/18 19:45) Labs Laboratory Tests Test 01/01/18 18:20 White Blood Count 8.4 TH/MM3 Red Blood Count 4.82 MIL/MM3 Hemoglobin 15.0 GM/DL Hematocrit 43.8 % Mean Corpuscular Volume 90.9 FL Mean Corpuscular Hemoglobin 31.2 PG Mean Corpuscular Hemoglobin Concent 34.4 % Red Cell Distribution Width 13.1 % Platelet Count 207 TH/MM3 Mean Platelet Volume 9.5 FL Neutrophils (%) (Auto) 66.4 % Lymphocytes (%) (Auto) 23.3 % Monocytes (%) (Auto) 5.8 % Eosinophils (%) (Auto) 3.6 % Basophils (%) (Auto) 0.9 % Neutrophils # (Auto) 5.6 TH/MM3 Lymphocytes # (Auto) 2.0 TH/MM3 Monocytes # (Auto) 0.5 TH/MM3 Eosinophils # (Auto) 0.3 TH/MM3 Basophils # (Auto) 0.1 TH/MM3 CBC Comment DIFF FINAL Differential Comment Prothrombin Time 10.7 SEC Prothromb Time International Ratio 1.1 RATIO Activated Partial Thromboplast Time 24.7 SEC MDM Medical Decision Making Medical Screen Exam Complete: Yes Emergency Medical Condition: Yes Medical Record Reviewed: Yes Differential Diagnosis DVT, chronic edema, muscle injury Narrative Course I have reviewed the patient's electronic medical record. I reviewed his admission from May 2017 including hematology consult and radiology placement of IVC filter IV placed CBC is normal Coagulation studies are normal I plan on obtaining the labs and discussing with hematology. This patient will be challenging to decide what to do with in terms of anticoagulation. He has known DVT but also history of severe GI bleed last summer requiring transfusion. He does have IVC filter in place. I reviewed in detail with faculty criminal justice Dr. Smith. 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 Obviously he is at risk for bleeding and we discussed that at length and he is willing to accept that risk and start the blood thinner. [facility] next one to 2 days. I've written him the first week prescription and gave him the first dose right now. She also recommended that he get the IVC filter removed and at is noted on his instructions as well for him to discuss with his physician Diagnosis Primary Impression: DVT (deep venous thrombosis) Qualified Codes: I82.4Z2 - Acute embolism and thrombosis of unspecified deep veins of left distal lower extremity Additional Instructions: The patient was advised to follow up with their physician and return if they worsen. Discuss removing your IVC filter with your physician You will need to decrease the dose of blood thinner in one week Med/Other Pt SpecificInfo: Prescription(s) given Scripts Apixaban (Eliquis) 5 Mg Tab 10 MG PO BID for Blood Clot Prevention, #14 TAB 0 Refills Prov: Harry Escobar MD 01/01/18 Disposition: 01 DISCHARGE HOME Condition: Stable Harry Escobar MD Jan 01, 2018 18:09
[2018-01-01 18:36] VITALS: BP 113/75; PULSE 84; RESP 18; O2SAT 100
[2018-01-01 18:45] LABS: AUTOMATED NEUTROPHIL # 5.6 TH/MM3 (1.8-7.7); BASOPHIL # 0.1 TH/MM3 (0-0.2); BASOPHIL % 0.9 % (0.0-2.0); EOSINOPHIL # 0.3 TH/MM3 (0-0.4); EOSINOPHIL % 3.6 % (0.0-4.0); HEMATOCRIT 43.8 % (39.0-51.0); LYMPH % 23.3 % (9.0-44.0); MEAN CELL VOLUME 90.9 FL (80.0-100.0); MEAN CORPUSCULAR HEMOGLOBIN 31.2 PG (27.0-34.0); MEAN CORPUSCULAR HGB CONC 34.4 % (32.0-36.0); MEAN PLATELET VOLUME 9.5 FL (7.0-11.0); MONO % 5.8 % (0.0-8.0); MONOCYTE # 0.5 TH/MM3 (0-0.9); NEUT % 66.4 % (16.0-70.0); PLATELET COUNT 207 TH/MM3 (150-450); RED BLOOD COUNT 4.82 MIL/MM3 (4.50-5.90); RED CELL DISTRIBUTION WIDTH 13.1 % (11.6-17.2); WHITE BLOOD COUNT 8.4 TH/MM3 (4.0-11.0)
[2018-01-01 19:00] LABS: INTERNATIONAL NORMALIZED RATIO 1.1 RATIO; PROTHROMBIN TIME - PATIENT 10.7 SEC (9.8-11.6)
[2018-01-01] MEDS ORDERED: APIX5TAB PO (19:43)
[2018-01-01] MEDS ORDERED: APIXABAN 5 MG TABLET PO ONE (19:45)
== END 2018-01-01 20:01 | disposition home or self-care (01) ==
LOC: NEPD 14:17
DX: I82.4Z2 Acute embolism and thrombosis of unspecified deep veins of left distal lower extremity (principal); I10 Essential (primary) hypertension; K21.9 Gastro-esophageal reflux disease without esophagitis; Z79.01 Long term (current) use of anticoagulants
CPT/HCPCS: 85025; 85610; 85730; 93971

== ENCOUNTER 2018-09-04 23:27 | Inpatient (IN) ==
--- NOTE | 2018-09-05 00:15 | ED ---
HPI General Chief complaint: Dizziness Stated complaint: BP issues Time Seen by Provider: 09/04/18 23:55 History of Present Illness HPI narrative: Patient is a 62-year-old gentleman presents the emergency department for evaluation of some blurred vision on the right side of his visual knight accompanied with some dizziness which she clarifies to me and presyncopal symptoms prior to arrival. Patient states he is on blood pressure medication and recently his carvedilol was increased from 6.25 mg daily to twice daily. Patient states he just felt very weak when he stood up and still has some very vague visual complaints. No headache no chest pain no shortness of breath. The patient does take Eliquis for history of DVT several years ago. Otherwise he feels pretty good and states that his presyncopal symptoms have gone away but his visual symptoms persist. Symptoms for the past few hours, mild, associated signs symptoms and context as above per Related Data Allergies Allergy/AdvReac Type Severity Reaction Status Date / Time No Known Allergies Allergy Unverified 09/04/18 23:41 Review of Systems ROS: all other systems reviewed are negative [facility] Medical History Medical History Borderline diabetic (Acute) DVT (deep venous thrombosis) (Acute) High cholesterol (Acute) Hypertension (Acute) Social History Social History Substance History: No History of Abuse Second Hand Smoke Exposure: No Smoking Status: Former smoker How Often Do You Have a Drink Containing Alcohol: Never Recent Out of Country Travel within the Last 8 Weeks: No Exam Narrative Exam Narrative: GENERAL: Well-developed well-nourished no obvious distress, quite pleasant. SKIN: Focused skin assessment warm/dry. HEAD: Atraumatic. Normocephalic. EYES: Pupils equal and round. No scleral icterus. No injection or drainage. ENT: No nasal bleeding or discharge. Mucous membranes pink and moist. NECK: Trachea midline. No JVD. CARDIOVASCULAR: Regular rate and rhythm. No murmur appreciated. RESPIRATORY: No accessory muscle use. Clear to auscultation. Breath sounds equal bilaterally. GASTROINTESTINAL: Abdomen soft, non-tender, nondistended. Hepatic and splenic margins not palpable. MUSCULOSKELETAL: No obvious deformities. No clubbing. No cyanosis. No edema. NEUROLOGICAL: Awake alert and oriented, cranial nerves II through XII grossly intact and nonfocal, 5 out of 5 strength in all 4 extremities, cerebellar testing negative. Ambulates with an even narrow-base gait. Visual knight are intact. PSYCHIATRIC: Appropriate mood and affect; insight and judgment normal. Course Initial Documented Vital Signs Temperature 97.9 F 09/04/18 23:41 Pulse Rate 99 H 09/04/18 23:41 Respiratory Rate 16 09/04/18 23:41 Blood Pressure 158/83 H 09/04/18 23:41 Pulse Oximetry 96 09/04/18 23:41 Last Documented Vital Signs Temperature 97.9 F 09/04/18 23:41 Pulse Rate 98 H 09/05/18 00:02 Respiratory Rate 18 09/05/18 00:02 Blood Pressure 187/87 H 09/05/18 00:02 Pulse Oximetry 97 09/05/18 00:02 Medical Decision Making MDM Narrative Medical decision making narrative: Patient room to the emergency department, very vague symptoms, small visual disturbance in the extreme right visual field. Differential would include head bleed, presyncopal symptoms, transient hypotension TIA. Initial plan was for MRI of the brain after CT of the head to exclude cerebellar stroke and then outpatient workup as the patient is neurologically nonfocal here except for very vague right-sided visual deficit. Patient does have MRI ordered, the labs are reassuring. CT the head does show a mass without too much mass-effect and no surrounding edema of the right sided cerebral cortex. Unsure if this would explain his symptoms. Had a lengthy discussion with him regarding the differential diagnosis including meningioma and cancer. I recommended admission to the hospital for neurosurgery consultation he is agreeable. Medical Screen Exam Complete: Yes Emergency Medical Condition: Yes Lab Data Result diagrams: 09/05/18 00:35 09/05/18 00:35 Lab Results 09/05/18 09/05/18 Range/Units 00:35 00:35 WBC 12.5 H (4.0-11.0) th/mm3 RBC 4.65 (4.50-5.90) mil/mm3 Hgb 14.6 (13.0-17.0) gm/dL Hct 42.5 (39.0-51.0) % MCV 91.4 (80.0-100.0) fL MCH 31.3 (27.0-34.0) pg MCHC 34.3 (32.0-36.0) % RDW 12.4 (11.6-17.2) % Plt Count 192 (150-450) th/mm3 MPV 9.6 (7.0-11.0) fL Neut % (Auto) 63.8 (16.0-70.0) % Lymph % (Auto) 27.0 (9.0-44.0) % [place] % (Auto) 6.2 (0.0-8.0) % Eos % (Auto) 2.5 (0.0-4.0) % Baso % (Auto) 0.5 (0.0-2.0) % Neut # (Auto) 8.0 H (1.8-7.7) th/mm3 Lymph # (Auto) 3.4 (1.0-4.8) th/mm3 [place] # (Auto) 0.8 (0.0-0.9) th/mm3 Eos # (Auto) 0.3 (0.0-0.4) th/mm3 Baso # (Auto) 0.1 (0.0-0.2) th/mm3 WBC Differential . Differential Comment Auto diff final Sodium 137 (136-145) meq/L Potassium 4.5 (3.5-5.1) meq/L Chloride 100 (98-107) meq/L Carbon Dioxide 29.2 (21.0-32.0) meq/L Anion Gap 8 (5-15) meq/L BUN 30 H (7-18) mg/dL Creatinine 1.25 (0.60-1.30) mg/dL Estimated GFR 70 L (>89) mL/min Random Glucose 95 (74-106) mg/dL Calcium 8.5 (8.5-10.1) mg/dL Total Bilirubin 0.5 (0.2-1.0) mg/dL AST 23 (15-37) U/L ALT 45 (12-78) U/L Alkaline Phosphatase 74 (45-117) U/L Troponin I Less than 0.02 L (0.02-0.05) ng/mL Total Protein 7.4 (6.4-8.2) g/dL Albumin 3.5 (3.4-5.0) g/dL Imaging Data Radiologist's impression: Chest X-Ray 09/05/18 00:10 CONCLUSION: No acute cardiopulmonary abnormality is identified. Head CT 09/05/18 00:10 CONCLUSION: 1. There is a hyperdense mass at the right frontoparietal high convexity measuring approximately 3.9 x 2.9 cm. Although incompletely characterized on this study it may be an extra-axial mass which would favor a meningioma as the diagnosis. It does not appear to cause any surrounding cerebral edema. It is felt unlikely that it is causing the patient's clinical symptoms but this should be further characterized with brain MRI with and without intravenous contrast. 2. Chronic findings include mild generalized atrophy and periventricular white matter low-attenuation suggestive of chronic microvascular ischemia. . Discharge Plan Physicians Team ED Provider: Juvencio Bailey Primary Care Provider: [facility] Interventions Interventions: Vital Signs Last Done: 09/05/18 00:02 Status ED Status: Admitted Patient
--- NOTE | 2018-09-05 00:41 | XR ---
EXAM DATE: 09/05/2018 12:10 AM EDT AGE/SEX: 62 years / Male INDICATIONS: Short of breath. CLINICAL DATA: This is the patient's initial encounter. Patient reports that signs and symptoms have been present for 1 day and indicates a pain score of 0/10. MEDICAL/SURGICAL HISTORY: Non-responsive. Non-responsive. COMPARISON: [facility] [place], CHEST SINGLE AP, 06/18/2017. . FINDINGS: Portable AP view of the chest demonstrates a normal-sized cardiac silhouette. No effusion, consolidat ion, or pneumothorax is identified. The bones and soft tissues demonstrate no acute finding. EKG line s overlie the patient. CONCLUSION: No acute cardiopulmonary abnormality is identified. Electronically signed by: Feliciano Desouza MD 09/05/2018 12:40 AM EDT
--- NOTE | 2018-09-05 00:47 | CT ---
EXAM DATE: 09/05/2018 12:13 AM EDT AGE/SEX: 62 years / Male INDICATIONS: Dizziness and blurred vision. CLINICAL DATA: This is the patient's initial encounter. Patient reports that signs and symptoms have been present for 1 day and indicates a pain score of 0/10. MEDICAL/SURGICAL HISTORY: Hypertension. Diabetes. Deep venous thrombosis. None. RADIATION DOSE: 56.35 CTDI (mGy) COMPARISON: No prior exams available for comparison. TECHNIQUE: CT of the head without contrast. Using automated exposure control and adjustment of the mA and/or kV according to patient size, radiation dose was kept as low as reasonably achievable to ob tain optimal diagnostic quality images. DICOM format image data is available electronically for revi ew and comparison. FINDINGS: Cerebrum: There is mild generalized atrophy and ventricles are normal given the degree of atrophy. M ild periventricular white matter change is present. There is a hyperdense mass at the right frontopar ietal high convexity measuring 3.9 x 2.9 cm. It does not appear to cause any surrounding cerebral fredy ma. No midline shift, hemorrhage or acute infarction. No extraaxial fluid collections are seen. Posterior Fossa: The cerebellum and brainstem demonstrate no acute abnormality. The 4th ventricle is midline. The cerebellopontine angle is within normal limits. Extracranial: The visualized sinuses are clear. Skull: The calvaria is intact. No skull fracture. CONCLUSION: 1. There is a hyperdense mass at the right frontoparietal high convexity measuring approximately 3.9 x 2.9 cm. Although incompletely characterized on this study it may be an extra-axial mass which woul d favor a meningioma as the diagnosis. It does not appear to cause any surrounding cerebral edema. It is felt unlikely that it is causing the patient's clinical symptoms but this should be further chloe cterized with brain MRI with and without intravenous contrast. 2. Chronic findings include mild generalized atrophy and periventricular white matter low-attenuatio n suggestive of chronic microvascular ischemia. . Electronically signed by: Feliciano Desouza MD 09/05/2018 12:46 AM EDT
[2018-09-05 01:18] LABS: Baso # (Auto) 0.1 th/mm3 (0.0-0.2); Baso % (Auto) 0.5 % (0.0-2.0); Eos # (Auto) 0.3 th/mm3 (0.0-0.4); Eos % (Auto) 2.5 % (0.0-4.0); Hematocrit 42.5 % (39.0-51.0); Hemoglobin 14.6 gm/dL (13.0-17.0); Lymph # (Auto) 3.4 th/mm3 (1.0-4.8); Mean Corpuscular HGB Conc 34.3 % (32.0-36.0); Mean Corpuscular Hemoglobin 31.3 pg (27.0-34.0); Mean Corpuscular Volume 91.4 fL (80.0-100.0); Mean Platelet Volume 9.6 fL (7.0-11.0); Mono # (Auto) 0.8 th/mm3 (0.0-0.9); Mono % (Auto) 6.2 % (0.0-8.0); Neut % (Auto) 63.8 % (16.0-70.0); Platelet Count 192 th/mm3 (150-450); Red Blood Count 4.65 mil/mm3 (4.50-5.90); Red Cell Distribution Width 12.4 % (11.6-17.2); White Blood Count 12.5 th/mm3 (4.0-11.0)
[2018-09-05 01:39] LABS: Alkaline Phosphatase 74 U/L (45-117); Total Protein 7.4 g/dL (6.4-8.2)
[2018-09-05 01:45] LABS: Alanine Aminotransferase 45 U/L (12-78); Albumin 3.5 g/dL (3.4-5.0); Anion Gap 8 meq/L (5-15); Aspartate Aminotransferase 23 U/L (15-37); Blood Urea Nitrogen 30 mg/dL (7-18); Calcium 8.5 mg/dL (8.5-10.1); Carbon Dioxide 29.2 meq/L (21.0-32.0); Chloride 100 meq/L (98-107); Glomerular Filtration Rate 70 mL/min (>89); Glucose,Random 95 mg/dL (74-106); Potassium 4.5 meq/L (3.5-5.1); Sodium 137 meq/L (136-145)
[2018-09-05] MEDS ORDERED: Bisacodyl 10 MG Supp RECTAL PRN (02:40)
[2018-09-05] MEDS: Sod Chloride 0.9% Inj 1,000 ML IV.CONT SCH ×2 (03:44→15:24)
[2018-09-05] MEDS: Acetaminophen 325 MG Tablet PO PRN ×2 (06:46→23:32)
--- NOTE | 2018-09-05 08:39 | P.HPIM ---
History of Present Illness Primary Care Physician: [facility] Chief Complaint: blurred vision History of Present Illness: patient is a 62 y/o male with history of hypertension, dyslipidemia, DVT, who presented to ER with blurred vision. he says that he started to have blurred vision last night. he says that he took his blood pressure and ' it was low'. he 's also complaining of right arm numbness and ' spasm'. he doesn't report any slurred speech or focal weakness. he denies any chest pain or sob but he says that he had some dizziness at the time. he denies chest pain or sob.he doesn't recall any similar episodes in the past. Review of Systems All other systems reviewed negative except as stated in HPI PMFSH - History History Provided By: Patient - Medical History Medical History: Medical History (Last Reviewed 09/05/18 @ 08:33 by Syed Page MD) Borderline diabetic DVT (deep venous thrombosis) High cholesterol Hypertension - Family History Family History: Family History (Last Updated 09/05/18 @ 08:33 by Syed Page MD) Other No pertinent family history - Tobacco History Second Hand Smoke Exposure: No Tobacco Use In Past 30 Days: No Smoking Status: Never smoker - Alcohol History How Often Do You Have a Drink Containing Alcohol: Never - Substance Use History Substance History: No History of Abuse - Travel History Recent Travel in the [place] Within the Last 8 Weeks: No Recent Travel Out of the Country Within the Last 8 Weeks: No - Immunization History Tetanus Immunization: Unsure Medications and Allergies Active Medications: Active Medications Acetaminophen (Tylenol) 650 mg PO Q4H PRN PRN Reason: Temp > 100.4 Last Admin: 09/05/18 06:46 Dose: 650 mg Al Hydroxide/Mg Hydroxide (Milk Of Magnesia Liq) 30 ml PO Q12H PRN PRN Reason: Mild Constipation Bisacodyl (Dulcolax Supp) 10 mg RECTAL DAILY PRN PRN Reason: SEVERE CONSITIPATION Sodium Chloride (Ns Inj) 1,000 mls @ 100 mls/hr IV.CONT .Q10H KETTY Last Admin: 09/05/18 03:44 Dose: 100 mls/hr Lactulose (Lactulose Liq) 30 ml PO DAILY PRN PRN Reason: SEVERE CONSITIPATION Ondansetron HCl (Zofran Inj) 4 mg IV.PUSH Q6H PRN PRN Reason: NAUSEA OR VOMITING Senna/Docusate Sodium (Neva-Colace) 1 tab PO BID KETTY Sennosides (Senokot) 17.2 mg PO Q12H PRN PRN Reason: Moderate Constipation Sodium Chloride (Ns Flush) 2 ml IV.FLUSH PRN PRN PRN Reason: FLUSH AFTER USING IV ACCESS Allergies Allergy/AdvReac Type Severity Reaction Status Date / Time No Known Allergies Allergy Unverified 09/04/18 23:41 Home Medications Medication Instructions Recorded Confirmed Type amlodipine 5 mg PO DAILY 09/05/18 09/05/18 History apixaban [Eliquis] 2.5 mg PO BID 09/05/18 09/05/18 History atorvastatin 10 mg PO DAILY 09/05/18 09/05/18 History carvedilol 6.25 mg PO BID 09/05/18 09/05/18 History ferrous sulfate 324 mg PO TID 09/05/18 09/05/18 History furosemide 40 mg PO DAILY 09/05/18 09/05/18 History lisinopril 5 mg PO DAILY 09/05/18 09/05/18 History pantoprazole 40 mg PO DAILY 09/05/18 09/05/18 History potassium chloride 20 meq PO BID 09/05/18 09/05/18 History spironolactone 25 mg PO DAILY 09/05/18 09/05/18 History Exam Vital signs: Vital Signs 09/04/18 23:41 09/05/18 00:02 09/05/18 04:00 Temperature 97.9 F 97.9 F Pulse Rate 99 H 98 H 85 Respiratory Rate 16 18 17 Blood Pressure 158/83 H 187/87 H 138/72 Pulse Oximetry 96 97 97 09/05/18 07:31 Temperature 97.9 F Pulse Rate 97 H Respiratory Rate 18 Blood Pressure 142/84 H Pulse Oximetry 96 Intake & Output 09/04/18 09/05/18 09/05/18 18:59 06:59 18:59 Weight 117.934 kg Other: Weight On Admission 117.934 kg - Constitutional no acute distress - Routine HEENT Exam Head: Present: atraumatic - Routine Neck Exam Present: supple - Routine Respiratory Exam Present: CTA bilaterally - Routine Cardiovascular Exam Present: RRR - Routine Abdominal Exam Present: soft - Routine Extremities Exam Comments: no pedal edema. - Routine Neurological Exam Present: alert, oriented X3 Results - Labs CBC & Chem 7: 09/05/18 00:35 09/05/18 00:35 Labs: Short CBC 09/05/18 Range/Units 00:35 WBC 12.5 H (4.0-11.0) th/mm3 Hgb 14.6 (13.0-17.0) gm/dL Hct 42.5 (39.0-51.0) % Plt Count 192 (150-450) th/mm3 BMP 09/05/18 00:35 Sodium 137 Potassium 4.5 Chloride 100 Carbon Dioxide 29.2 BUN 30 H Creatinine 1.25 Calcium 8.5 Cardiac Enzymes 09/05/18 Range/Units 00:35 Troponin I Less than 0.02 L (0.02-0.05) ng/mL Liver Function 09/05/18 Range/Units 00:35 Total Bilirubin 0.5 (0.2-1.0) mg/dL AST 23 (15-37) U/L ALT 45 (12-78) U/L Alkaline Phosphatase 74 (45-117) U/L Albumin 3.5 (3.4-5.0) g/dL - Imaging Impressions Chest X-Ray 09/05/18 00:10 CONCLUSION: No acute cardiopulmonary abnormality is identified. Head CT 09/05/18 00:10 CONCLUSION: 1. There is a hyperdense mass at the right frontoparietal high convexity measuring approximately 3.9 x 2.9 cm. Although incompletely characterized on this study it may be an extra-axial mass which would favor a meningioma as the diagnosis. It does not appear to cause any surrounding cerebral edema. It is felt unlikely that it is causing the patient's clinical symptoms but this should be further characterized with brain MRI with and without intravenous contrast. 2. Chronic findings include mild generalized atrophy and periventricular white matter low-attenuation suggestive of chronic microvascular ischemia. . Caprini VTE Risk Assessment Caprini VTE Risk Assessment: Moderate/High Risk (score >= 2) Caprini Risk Assessment Model: Point Value = 1 Point Value = 2 Point Value = 3 Point Value = 5 Age 41-60 Minor surgery BMI > 25 kg/m2 Swollen legs Varicose veins or History of unexplained or recurrent spontaneous Oral contraceptives or hormone replacement Sepsis (< 1 month) Serious lung disease, including pneumonia (< 1 month) Abnormal pulmonary function Acute myocardial infarction Congestive heart failure (< 1 month) History of inflammatory bowel disease Medical patient at bed rest Age 61-74 Arthroscopic surgery Major open surgery (> 45 min) Laparoscopic surgery (> 45 min) Malignancy Confined to bed (> 72 hours) Immobilizing plaster cast Central venous access Age >= 75 History of VTE Family history of VTE Factor V Leiden Prothrombin [id number] Lupus anticoagulant Anticardiolipin antibodies Elevated serum homocysteine Heparin-induced thrombocytopenia Other congenital or acquired thrombophilia Stroke (< 1 month) Elective arthroplasty Hip, pelvis, or leg fracture Acute spinal cord injury (< 1 month) Prophylaxis Regimen: Total Risk Factor Score Risk Level Prophylaxis Regimen 0-1 Low Early ambulation 2 Moderate Order ONE of the following: *Sequential Compression Device (SCD) *Heparin 5000 units SQ BID 3-4 Higher Order ONE of the following medications: *Heparin 5000 units SQ TID *Enoxaparin/Lovenox 40 mg SQ daily (WT < 150 kg, CrCl > 30 mL/min) *Enoxaparin/Lovenox 30 mg SQ daily (WT < 150 kg, CrCl > 10-29 mL/min) *Enoxaparin/Lovenox 30 mg SQ BID (WT < 150 kg, CrCl > 30 mL/min) AND/OR *Sequential Compression Device (SCD) 5 or more Highest Order ONE of the following medications: *Heparin 5000 units SQ TID (Preferred with Epidurals) *Enoxaparin/Lovenox 40 mg SQ daily (WT < 150 kg, CrCl > 30 mL/min) *Enoxaparin/Lovenox 30 mg SQ daily (WT < 150 kg, CrCl > 10-29 mL/min) *Enoxaparin/Lovenox 30 mg SQ BID (WT < 150 kg, CrCl > 30 mL/min) AND *Sequential Compression Device (SCD) Assessment and Plan - Plan A/P - blurred vision with right upper extremity numbness/spasms CT of the head with hyperdense mass at the right frontoparietal high convexity measuring approximately 3.9 x 2.9 cm. MRI brain pending- consulted neurology and neurosurgery. check carotid doppler and echo. -hypertension; resume Coreg - hold other home meds for now- continue to monitor. -DVT of the left lower extremity; hold anticoagulation till MRI resulted and evaluated by neurosurgery. Discussed Condition With: the patient. Discharge Planning: awaiting MRI/ neurosurgery/neurology w/u. H&P: Quality - VTE Deep Vein Thrombosis/Pulmonary Embolism Present on Admission: Yes
--- NOTE | 2018-09-05 08:43 | P.CONNS ---
History of Present Illness Service: Neurosurgery Consult date: 09/05/18 Requesting Physician: Syed Page Reason for Consult: Brain mass Primary Care Provider: [facility] Chief Complaint: blurred vision History of Present Illness: this a 62 y/o male with history of hypertension, hyperlipidemia, prior DVT, who presented to ER with blurred vision. He reports that he developed blurred vision last night. He took his blood pressure and ' it was low'. he's also complaining of right arm numbness and ' spasm'. he doesn't report any slurred speech or focal weakness. No seizure activity reported. No tongue biting. No incontinence of stool or urine. No tonic-clonic movements. He was moving well both upper and lower extremities although reports mild weakness on the left side including his arm and leg. He denies any chest pain or sob but he says that he had some dizziness at the time. he denies chest pain or sob.he doesn't recall any similar episodes in the past. His family history was reviewed and noncontributory to the present admission Review of Systems Constitutional: Denies anorexia, Denies body ache(s), Denies chills, Denies daytime sleepiness, Denies excessive sweating, Denies fatigue, Denies fever(s), Denies headache(s), Denies increased appetite, Denies lack of energy, Denies malaise, Denies night sweats, Denies weakness, Denies weight gain, Denies weight loss, Denies other Eyes: Reports blind spots, Denies blurry vision, Denies bulging eyes, Denies change in vision, Denies double vision, Denies discharge, Denies dry eyes, Denies floaters, Denies irritation, Denies itchy eyes, Denies loss of vision, Denies pain, Denies requires corrective lenses, Denies sensitivity to light, Denies other Ears, Nose, Mouth, and Throat: Denies abnormal hearing, Denies bleeding gums, Denies bad breath, Denies change in voice, Denies dental pain, Denies difficulty swallowing, Denies dizziness, Denies dry mouth, Denies ear discharge , Denies ear pain, Denies facial pain, Denies headache(s), Denies hearing loss, Denies hoarseness, Denies lip swelling, Denies nosebleed, Denies mouth lesions, Denies mouth pain, Denies nasal congestion, Denies nasal discharge, Denies nasal obstruction, Denies nasal trauma, Denies neck lump, Denies neck pain, Denies nose pain, Denies pain with swallowing, Denies poor balance, Denies post nasal drip, Denies ringing in the ears, Denies sinus pain, Denies sinus pressure , Denies sore throat, Denies throat swelling, Denies tongue swelling, Denies other Cardiovascular: Denies chest pain, Denies chest pain at rest, Denies chest pain with activity, Denies excessive sweating, Denies fainting, Denies fast heart rate, Denies foot swelling, Denies generalized swelling, Denies irregular heart rhythm, Denies leg pain with activity, Denies leg sores, Denies leg swelling, Denies lightheadedness, Denies radiating jaw, neck or arm pain, Denies rapid, pounding, or irregular heartbeat, Denies shortness of breath, Denies shortness of breath with activity, Denies shortness of breath when lying down, Denies shortness of breath causing sudden awakening, Denies slow heart rate, Denies other Respiratory: Denies change in phlegm color, Denies chest congestion, Denies cough, Denies coughing up blood, Denies excessive phlegm production, Denies pain on inspiration, Denies pain with cough, Denies shortness of breath, Denies shortness of breath with activity, Denies snoring, Denies stridor, Denies wheezing, Denies other Gastrointestinal: Denies abdominal pain, Denies belching, Denies black, tarry stools, Denies bloating, Denies bright, red blood in stools, Denies change in bowel habits, Denies constant urge to pass stool, Denies change in stools, Denies coffee ground vomit, Denies constipation, Denies cramping, Denies difficulty swallowing, Denies excessive passing of gas, Denies feeling full early, Denies heartburn, Denies incontinent of stools, Denies loose stools, Denies nausea, Denies pain with swallowing, Denies vomiting, Denies vomiting blood, Denies other Genitourinary: Denies blood in semen, Denies blood in urine, Denies decreased urination, Denies difficulty urinating, Denies difficulty with ejaculations, Denies erectile dysfunction, Denies genital lesions, Denies genital pain, Denies painful urination, Denies side pain, Denies frequent nighttime urination , Denies painful ejaculations, Denies penile discharge, Denies scrotal swelling , Denies testicle lump, Denies testicle pain, Denies urinary frequency, Denies urinary hesitancy, Denies urinary incontinence, Denies urinary urgency, Denies other Musculoskeletal: Reports abnormal walking, Reports muscle weakness, Denies back pain, Denies body aches, Denies decreased muscle mass, Denies deformity, Denies joint pain, Denies joint swelling, Denies limited joint movement, Denies loss of height, Denies muscle cramps, Denies neck pain, Denies numbness, Denies radiating pain into limb, Denies stiffness, Denies tingling, Denies other Skin/Breast: Denies acne, Denies bleeding lesions, Denies boil, Denies breast swelling, Denies breast skin changes, Denies breast pain, Denies breast lump, Denies change in breast shape, Denies change in hair, Denies change in skin color, Denies changing lesions, Denies dry skin, Denies excessive hair growth, Denies hair loss, Denies itching, Denies lesions, Denies nail changes, Denies new lesions, Denies nipple discharge, Denies non-healing lesions, Denies redness , Denies sensitivity to light, Denies rash, Denies skin pain, Denies skin ulcer , Denies sores, Denies stretch olivas, Denies unusual bruising, Denies wounds, Denies yellowing of the skin, Denies other Neurologic: Denies abnormal hearing, Denies abnormal movements, Denies abnormal speech, Denies abnormal walking, Denies behavioral changes, Denies burning sensations, Denies confusion, Denies dizziness, Denies fainting, Denies frequent falls, Denies headache(s), Denies lack of coordination, Denies localized weakness, Denies loss of vision, Denies memory loss, Denies numbness, Denies other visual disturbances, Denies radiating pain, Denies restless legs, Denies convulsions, Denies seizure-like activity, Denies sensory deficit, Denies tingling, Denies tingling/numbness/burning sensations, Denies tremor(s), Denies unsteadiness, Denies weakness, Denies other Psychiatric: Denies abnormal sleep pattern, Denies anxiety, Denies behavioral changes, Denies change in appetite, Denies change in sex drive, Denies confusion , Denies depression, Denies difficulty concentrating, Denies hearing things others do not hear, Denies hopelessness, Denies irritability, Denies lack of enjoyment, Denies memory loss, Denies mood swings, Denies panic attacks, Denies paranoia, Denies seeing things others do not see, Denies sensing things others do not sense, Denies tactile hallucinations, Denies thoughts of hurting/killing others, Denies thoughts of hurting/killing yourself, Denies other Endocrine: Denies cold intolerance, Denies excessive sweating, Denies flushing, Denies heat intolerance, Denies increased hunger, Denies increased thirst, Denies increased urination, Denies rapid, pounding, or irregular heartbeat, Denies other Hematologic/Lymphatic: Denies easy bleeding, Denies easy bruising, Denies enlarged lymph nodes, Denies other PMFSH - History History Provided By: Patient - Medical History Medical History: Medical History (Last Reviewed 09/05/18 @ 08:43 by Jordin Rosenbaum MD) Borderline diabetic DVT (deep venous thrombosis) High cholesterol Hypertension - Surgical History Surgical History: Surgical History (Last Reviewed 09/08/18 @ 16:16 by Jordin Rosenbaum MD) H/O hernia repair H/O neck surgery S/P insertion of IVC (inferior vena caval) filter S/P right rotator cuff repair - Family History Family History: Family History (Last Reviewed 09/05/18 @ 08:43 by Jordin Rosenbaum MD) Other No pertinent family history - Tobacco History Second Hand Smoke Exposure: No Tobacco Use In Past 30 Days: No Smoking Status: Never smoker - Alcohol History How Often Do You Have a Drink Containing Alcohol: Never - Substance Use History Substance History: No History of Abuse - Travel History Recent Travel in the [place] Within the Last 8 Weeks: No Recent Travel Out of the Country Within the Last 8 Weeks: No - Immunization History Tetanus Immunization: Unsure Medications and Allergies Active Medications: Active Medications Acetaminophen (Tylenol) 650 mg PO Q4H PRN PRN Reason: Temp > 100.4 Last Admin: 09/05/18 06:46 Dose: 650 mg Al Hydroxide/Mg Hydroxide (Milk Of Magnesia Liq) 30 ml PO Q12H PRN PRN Reason: Mild Constipation Amlodipine Besylate (Norvasc) 5 mg PO DAILY [facility] Atorvastatin Calcium (Lipitor) 10 mg PO DAILY [facility] Bisacodyl (Dulcolax Supp) 10 mg RECTAL DAILY PRN PRN Reason: SEVERE CONSITIPATION Sodium Chloride (Ns Inj) 1,000 mls @ 100 mls/hr IV.CONT .Q10H [facility] Last Admin: 09/05/18 03:44 Dose: 100 mls/hr Lactulose (Lactulose Liq) 30 ml PO DAILY PRN PRN Reason: SEVERE CONSITIPATION Ondansetron HCl (Zofran Inj) 4 mg IV.PUSH Q6H PRN PRN Reason: NAUSEA OR VOMITING Pantoprazole Sodium (Protonix) 40 mg PO DAILY [facility] Senna/Docusate Sodium (Neva-Colace) 1 tab PO BID [facility] Sennosides (Senokot) 17.2 mg PO Q12H PRN PRN Reason: Moderate Constipation Sodium Chloride (Ns Flush) 2 ml IV.FLUSH PRN PRN PRN Reason: FLUSH AFTER USING IV ACCESS Allergies Allergy/AdvReac Type Severity Reaction Status Date / Time No Known Allergies Allergy Unverified 09/04/18 23:41 Home Medications Medication Instructions Recorded Confirmed Type amlodipine 5 mg PO DAILY 09/05/18 09/05/18 History apixaban [Eliquis] 2.5 mg PO BID 09/05/18 09/05/18 History atorvastatin 10 mg PO DAILY 09/05/18 09/05/18 History carvedilol 6.25 mg PO BID 09/05/18 09/05/18 History ferrous sulfate 324 mg PO TID 09/05/18 09/05/18 History furosemide 40 mg PO DAILY 09/05/18 09/05/18 History lisinopril 5 mg PO DAILY 09/05/18 09/05/18 History pantoprazole 40 mg PO DAILY 09/05/18 09/05/18 History potassium chloride 20 meq PO BID 09/05/18 09/05/18 History spironolactone 25 mg PO DAILY 09/05/18 09/05/18 History Exam Vital signs: Vital Signs 09/04/18 23:41 09/05/18 00:02 09/05/18 04:00 Temperature 97.9 F 97.9 F Pulse Rate 99 H 98 H 85 Respiratory Rate 16 18 17 Blood Pressure 158/83 H 187/87 H 138/72 Pulse Oximetry 96 97 97 09/05/18 07:31 Temperature 97.9 F Pulse Rate 97 H Respiratory Rate 18 Blood Pressure 142/84 H Pulse Oximetry 96 Intake & Output 09/04/18 09/05/18 09/05/18 18:59 06:59 18:59 Weight 117.934 kg Other: Weight On Admission 117.934 kg Results - Laboratory Findings CBC and BMP: 09/08/18 03:07 09/08/18 03:07 Abnormal lab findings: Abnormal Labs 09/05/18 09/05/18 00:35 00:35 WBC 12.5 H Neut # (Auto) 8.0 H BUN 30 H Estimated GFR 70 L Troponin I Less than 0.02 L Assessment and Plan - Plan I have reviewed the clinical and radiological findings Chest X-Ray 09/05/18 00:10 CONCLUSION: No acute cardiopulmonary abnormality is identified. Head CT 09/05/18 00:10 CONCLUSION: 1. There is a hyperdense mass at the right frontoparietal high convexity measuring approximately 3.9 x 2.9 cm. Although incompletely characterized on this study it may be an extra-axial mass which would favor a meningioma as the diagnosis. It does not appear to cause any surrounding cerebral edema. It is felt unlikely that it is causing the patient's clinical symptoms but this should be further characterized with brain MRI with and without intravenous contrast. 2. Chronic findings include mild generalized atrophy and periventricular white matter low-attenuation suggestive of chronic microvascular ischemia. . Neuro: neuro checks in a serial fashion. recommend MRI of the brain with and without contrast. He has a large mass with focal mass effect, and he would likely need a surgical resection. It could be a meningioma although based on the CT along I am unable to rule out another type of neoplastic process. I will defer further recommendations to upon completion of his MRI Pulmonary: aggressive pulmonary toilette, nasotracheal suction, and breathing treatments with nebulizers. Daily PT and OT Renal: Continue to monitor closely urine output, BUN and creatinine Endocrine: Continue to Monitor serial Acu checks and SSI as needed in detail ID continue to monitor for signs of infection Continue Protonix for stress ulcer prophylaxis Continue Cruz hose and SCD's for DVT prophylaxis Further recommendations will be provided depending on the patient's clinical evaluation and follow up studies.
[2018-09-05] MEDS ORDERED: amLODIPine 5 MG Tablet PO SCH (09:00)
--- NOTE | 2018-09-05 09:02 | ECG ---
Date Performed: 09/05/2018 Time Performed: 03:43:22 PTAGE: 62 years EKG: Sinus rhythm BORDERLINE LEFT AXIS DEVIATION MINIMAL VOLTAGE CRITERIA FOR LVH, CONSIDER NORMAL VARIANT NONSPECIFIC T-WAVE ABNORMALITY BORDERLINE ECG PREVIOUS TRACING : 06/18/2017 19.01 DOCTOR: Paul Humphries Interpretating Date/Time 09/05/2018 09:01:12
--- NOTE | 2018-09-05 10:12 | US ---
EXAM DATE: 09/05/2018 12:00 AM EDT AGE/SEX: 62 years / Male INDICATIONS: Dizziness. CLINICAL DATA: This is the patient's initial encounter. Patient reports that signs and symptoms have been present for 1 day and indicates a pain score of 8/10. MEDICAL/SURGICAL HISTORY: Deep venous thrombosis. Hypercholesterolemia. Hypertension. None. COMPARISON: No prior exams available for comparison. VELOCITY PARAMETERS: ICA/CCA Ratio: Right 1.7 , Left 1.4 ICA: Right 47 cm/sec, Left 47 cm/sec CCA: Right 84 cm/sec, Left 67 cm/sec ECA: Right 71 cm/sec, Left 74 cm/sec Vertebral: Right not visualized cm/sec absent, Left 22 cm/sec antegrade FINDINGS: Right Carotid: No significant plaque is visualized.The waveforms are within normal limits. Left Carotid: No significant plaque is visualized. The waveforms are within normal limits. Other: None. CONCLUSION: 1. No hemodynamically significant stenosis in either carotid artery. 2. Nonvisualization right vertebral artery. Electronically signed by: Aly Mora MD 09/05/2018 10:11 AM EDT
[2018-09-05] MEDS ORDERED: Gadobutrol PF 2 MMOL/2 ML Vial (for RAD) IV.SIG ONE (10:30)
--- NOTE | 2018-09-05 10:41 | MR ---
EXAM DATE: 09/05/2018 9:03 AM EDT AGE/SEX: 62 years / Male INDICATIONS: Mass. Weakness. CLINICAL DATA: This is the patient's subsequent encounter. Patient reports that signs and symptoms h ave been present for 1 day and indicates a pain score of 0/10. MEDICAL/SURGICAL HISTORY: Hypertension. Fusion, cervical. Rotator cuff. COMPARISON: [facility] [place], CT HEAD W/O CONTRAST, 09/05/2018. . TECHNIQUE: Multiplanar, multisequence examination of the brain was performed without and with 12 ml G adavist (gadobutrol) contrast as a single exam dose. FINDINGS: Cerebrum: The ventricles are normal for age. No evidence of midline shift, mass lesion, hemorrhage or acute infarction. No extraaxial fluid collections are seen. The pituitary gland and suprasellar cistern are normal in configuration. White Matter: No significant signal abnormalities are seen in the white matter. Posterior Fossa: The cerebellum and brainstem are intact. Old left cerebellar lacunar infarct. The 4t h ventricle is midline. The cerebellopontine angle is unremarkable. The cerebellar tonsils are norm al in position. Diffusion Imaging: No focal areas of restricted diffusion are seen. No evidence of acute infarction . Extracranial: The visualized portions of the orbits and paranasal sinuses are unremarkable. Post Contrast: There is a predominantly homogeneous enhancing mass towards the posterior right pariet al convexity which has a dural tail measuring 3.4 x 2.9 cm most consistent with meningioma. CONCLUSION: 1. Right parietal extra-axial mass consistent with meningioma. 2. No acute intracranial abnormality. Electronically signed by: Aly Mora MD 09/05/2018 10:39 AM EDT
[2018-09-05] MEDS: Senna/Docusate Sodium 8.6/50 MG Tablet PO SCH ×2 (12:53→20:57)
--- NOTE | 2018-09-05 18:42 | ECHRPT ---
Indication: CVA/TIA CONCLUSIONS The left ventricular systolic function is normal with an estimated ejection fraction in the range of 55-60%. Mild concentric left ventricular hypertrophy. Doppler parameters are consistent with impaired left ventricular relaxtion (grade 1 diastolic dysfun ction). Trace mitral valve regurgitation. Trace aortic valve regurgitation. There is trace tricuspid valve regurgitation. BP: / HR: Rhythm: MEASUREMENTS (Male / Female) Normal Values Technical Quality:Fair 2D ECHO LV Diastolic Diameter PLAX 4.0 cm 4.2 - 5.9 / 3.9 - 5.3 cm LV Systolic Diameter PLAX 3.0 cm IVS Diastolic Thickness 1.3 cm 0.6 - 1.0 / 0.6 - 0.9 cm LVPW Diastolic Thickness 1.3 cm 0.6 - 1.0 / 0.6 - 0.9 cm LV Relative Wall Thickness 0.6 RV Internal Dim ED PLAX 3.1 cm LVOT Diameter 2.2 cm Aortic Root Diameter 3.6 cm LA Systolic Diameter LX 3.8 cm 3.0 - 4.0 / 2.7 - 3.8 cm M-MODE AV Cusp Separation MM 2.2 cm DOPPLER AV Peak Velocity 134.0 cm/s AV Peak Gradient 7.2 mmHg AI Peak Velocity 354.0 cm/s AI Peak Gradient 50.1 mmHg AI Pressure Half Time 748.0 ms Mitral E Point Velocity 60.8 cm/s Mitral A Point Velocity 73.1 cm/s Mitral E to A Ratio 0.8 LV E' Lateral Velocity 6.5 cm/s Mitral E to LV E' Lateral Ratio 9.3 LV E' Septal Velocity 6.4 cm/s Mitral E to LV E' Septal Ratio 9.4 TR Peak Velocity 190.5 cm/s TR Peak Gradient 14.5 mmHg Right Atrial Pressure 10.0 mmHg Pulmonary Artery Systolic Pressu 24.5 mmHg Right Ventricular Systolic Press 24.5 mmHg PV Peak Velocity 86.9 cm/s PV Peak Gradient 3.0 mmHg FINDINGS LEFT VENTRICLE Normal left ventricular size. Mild concentric left ventricular hypertrophy. The left ventricular systolic function is normal with an estimated ejection fraction in the range of 55-60%. Doppler parameters are consistent with impaired left ventricular relaxtion (grade 1 diastolic dysfun ction). RIGHT VENTRICLE Normal right ventricular size and systolic function. LEFT ATRIUM The left atrial size is upper limits of normal. RIGHT ATRIUM The right atrial size is normal. ATRIAL SEPTUM Normal atrial septal thickness without atrial level shunting by limited color doppler interrogation. AORTA The aortic root and proximal ascending aorta are normal in size on limited imaging. MITRAL VALVE Structurally normal mitral valve. No mitral valve stenosis. Trace mitral valve regurgitation. AORTIC VALVE Trileaflet aortic valve. Trace aortic valve regurgitation. TRICUSPID VALVE Structurally normal tricuspid valve. There is trace tricuspid valve regurgitation. The estimated pulmonary arterial pressure is 25 mmHg. PULMONARY VALVE No pulmonary valve regurgitation or stenosis. VESSELS The inferior vena cava is normal in size. PERICARDIUM No pericardial effusion. Javier Negrete DO (Electronically Signed) Final Date:05 September 2018 18:40
--- NOTE | 2018-09-05 19:04 | MB ---
cc: Nito Cox MD, PhD DATE: 09/05/2018 REASON FOR CONSULTATION: TIA. HISTORY OF PRESENT ILLNESS: Mr. Cannon is a very nice 62-year-old man who had transient blurred vision in the right eye noted. His blood pressure was low with a systolic of 88. He has had this in the past. He had no other deficits. He does relate the left arm is heavy at times when he lifts it and numb. He had an MRI of the brain done, which shows a meningioma in the right parietal convexity 3.9 x 2.9 cm. PAST MEDICAL HISTORY: History of DVT for which he takes Eliquis, history of hyperlipidemia, hypertension, borderline diabetes. MEDICATIONS: 1. Eliquis 2.5 mg b.i.d. 2. Lipitor. 3. Coreg. 4. Protonix 40 mg daily. 5. Senokot. NEUROLOGICAL EXAMINATION: VITAL SIGNS: Blood pressure is 141/76, pulse is 88, respirations 18, temperature 97 degrees. NEUROLOGIC: Higher cortical functions are normal. Cranial nerves are intact. Motor exam at this time he has 5/5 strength of all groups in both upper and lower extremities. There is no drift. Fine motor skills are within normal limits. Reflexes are symmetric. Cerebellar testing is normal. IMPRESSION: 1. Transient visual blurring in the right eye. This may be related to hypotension; however, recommend checking carotid ultrasound and echo rule out amaurosis fugax. 2. Right parietal mass, probable meningioma. We will defer to Dr. Rosenbaum regarding this. Nito Cox MD, PhD MARILEE/ct , 05:45 PM , 05:53 PM
[2018-09-06] MEDS: Acetaminophen 325 MG Tablet PO PRN ×4 (03:59→21:41)
[2018-09-06] MEDS: Senna/Docusate Sodium 8.6/50 MG Tablet PO SCH ×2 (08:37→21:42)
[2018-09-06] MEDS ORDERED: Chlorhexidine 4% Topical 120 APPLIC/120 ML Bottle TOPICAL ONE (10:00)
--- NOTE | 2018-09-06 11:21 | P.PNIM ---
Subjective Interval history: f/u; meningioma in no acute distress. blurred vision is better. complaining of some back pain. Physical Exam Vital signs: Vital Signs 09/05/18 12:00 09/05/18 20:00 09/06/18 03:06 Temperature 97.7 F 97.4 F L Pulse Rate 88 102 H 90 Respiratory Rate 18 18 20 Blood Pressure 141/76 H 133/85 136/74 Pulse Oximetry 96 103 H 97 09/06/18 07:27 Temperature 97.6 F Pulse Rate 95 H Respiratory Rate 18 Blood Pressure 141/84 H Pulse Oximetry 96 Intake & Output 09/05/18 09/06/18 09/06/18 18:59 06:59 18:59 Intake Total 0 / 0 1000 / 1000 Balance 0 / 0 1000 / 1000 Intake: IV 0 / 0 1000 / 1000 NS Inj 1,000 ML @ 100 mls/hr IV 0 / 0 1000 / 1000 .CONT .Q10H KETTY Rx#:[id number] - Constitutional no acute distress - Routine Respiratory Exam Present: CTA bilaterally - Routine Cardiovascular Exam Present: RRR - Routine Abdominal Exam Present: soft - Routine Extremities Exam Comments: no pedal edema. - Routine Neurological Exam Present: alert, oriented X3 Results - Labs CBC & Chem 7: 09/05/18 00:35 09/05/18 00:35 Assessment and Plan - Plan A/P - blurred vision with right upper extremity numbness/spasms CT of the head with hyperdense mass at the right frontoparietal high convexity measuring approximately 3.9 x 2.9 cm. MRI brain with meningioma- carotid doppler with no significant stenosis- echo with EF 55% and grade I diastolic dysfunction. neurology and neurosurgery following. -hypertension; resumed Coreg - hold other home meds for now- continue to monitor. -DVT of the left lower extremity; hold anticoagulation for now- pending neurosurgery recommendations. Discharge Planning: awaiting neurosurgery/neurology f/u and recommendations.
--- NOTE | 2018-09-06 12:55 | P.PNNS ---
Subjective Interval history: reprots to be doing well today, c/o of right side leg pain. states he also has chronic numbness for many years down his left side. denies headaches, vomiting , no new neuro complaints. <Basia Burns - Last Filed: 09/06/18 12:43> Physical Exam Vital signs: Vital Signs 09/05/18 20:00 09/06/18 03:06 09/06/18 07:27 Temperature 97.4 F L 97.6 F Pulse Rate 102 H 90 95 H Respiratory Rate 18 20 18 Blood Pressure 133/85 136/74 141/84 H Pulse Oximetry 103 H 97 96 09/06/18 11:29 Temperature 97.5 F L Pulse Rate 92 H Respiratory Rate 18 Blood Pressure 142/79 H Pulse Oximetry 100 Intake & Output 09/05/18 09/06/18 09/06/18 18:59 06:59 18:59 Intake Total 0 / 0 1000 / 1000 Balance 0 / 0 1000 / 1000 Intake: IV 0 / 0 1000 / 1000 NS Inj 1,000 ML @ 100 mls/hr IV 0 / 0 1000 / 1000 .CONT .Q10H [facility] Rx#:[id number] <Basia Burns - Last Filed: 09/06/18 12:43> Vital signs: Vital Signs 09/06/18 11:29 09/06/18 15:24 09/06/18 19:20 Temperature 97.5 F L 97.7 F 97.8 F Pulse Rate 92 H 95 H 98 H Respiratory Rate 18 18 18 Blood Pressure 142/79 H 122/76 126/82 Pulse Oximetry 100 100 95 09/06/18 23:10 09/07/18 03:46 Temperature 98.7 F 98.2 F Pulse Rate 107 H 109 H Respiratory Rate 18 18 Blood Pressure 141/87 H 146/82 H Pulse Oximetry 100 98 Intake & Output 09/06/18 09/07/18 09/07/18 18:59 06:59 18:59 Other: Date of Last Bowel Movement 09/06/18 09/06/18 Narrative: The patient is alert, awake. Comfortable, in no acute distress. Speech is fluent. Cranial nerve examination: pupils to be equal, round and reactive to light. Extra-ocular movements are intact. Facial motor and sensory function are normal and symmetrical. Gross hearing appears intact. Sternocleidomastoid and trapezius muscles are symmetrical. Other cranial nerves are intact. Neck is soft and supple with a good range of motion without pain. Muscle strength is normal in all muscle groups of both upper and lower extremities. Sensory examination is intact to light touch and pin prick in both the upper and lower extremities. Deep tendon reflexes are symmetrical in both upper and lower extremities. There is a bilateral plantar flexion response. Cerebellar examination is unremarkable, without deficits. Lungs are clear Heart regular rhythm is regular rate Skin warm and dry <Jordin Rosenbaum - Last Filed: 09/07/18 09:27> Assessment and Plan - Plan Carotid Doppler Study 09/05/18 00:00 CONCLUSION: 1. No hemodynamically significant stenosis in either carotid artery. 2. Nonvisualization right vertebral artery. Head MRI 09/05/18 00:00 CONCLUSION: 1. Right parietal extra-axial mass consistent with meningioma. 2. No acute intracranial abnormality. Chest X-Ray 09/05/18 00:10 CONCLUSION: No acute cardiopulmonary abnormality is identified. Head CT 09/05/18 00:10 CONCLUSION: 1. There is a hyperdense mass at the right frontoparietal high convexity measuring approximately 3.9 x 2.9 cm. Although incompletely characterized on this study it may be an extra-axial mass which would favor a meningioma as the diagnosis. It does not appear to cause any surrounding cerebral edema. It is felt unlikely that it is causing the patient's clinical symptoms but this should be further characterized with brain MRI with and without intravenous contrast. 2. Chronic findings include mild generalized atrophy and periventricular white matter low-attenuation suggestive of chronic microvascular ischemia. . Plan: MRI Brain reviewed by Dr. Rosenbaum patient agreeable for surgical resection of large brain mass, scheduled for surgery tomorrow NPO tonight <Basia Burns - Last Filed: 09/06/18 12:43> - Plan I reviewed his MRI Carotid Doppler Study 09/05/18 00:00 CONCLUSION: 1. No hemodynamically significant stenosis in either carotid artery. 2. Nonvisualization right vertebral artery. Head MRI 09/05/18 00:00 CONCLUSION: 1. Right parietal extra-axial mass consistent with meningioma. 2. No acute intracranial abnormality. Chest X-Ray 09/05/18 00:10 CONCLUSION: No acute cardiopulmonary abnormality is identified. Head CT 09/05/18 00:10 CONCLUSION: 1. There is a hyperdense mass at the right frontoparietal high convexity measuring approximately 3.9 x 2.9 cm. Although incompletely characterized on this study it may be an extra-axial mass which would favor a meningioma as the diagnosis. It does not appear to cause any surrounding cerebral edema. It is felt unlikely that it is causing the patient's clinical symptoms but this should be further characterized with brain MRI with and without intravenous contrast. 2. Chronic findings include mild generalized atrophy and periventricular white matter low-attenuation suggestive of chronic microvascular ischemia. . Neuro: Continue neuro checks in a serial fashion. I reviewed his MRI of the brain with and without contrast. He has a large mass with focal mass effect, and he would likely a meningioma. i discussed with him the alternatives of treatment, including a surgical resection via a stereotactic image-guided craniotomy with microsurgical resection of the meningioma. Ihaustin discussed the [id number] details of the surgical procedure, its indications, alternatives, risks, and potential complications. Risks and potential complications include, but are not limited to, infection, blood loss, CSF leak, partial or complete loss of sight in one or both eyes, paresis, paralysis, permanent pain or difficulty swallowing, loss of bowel or bladder function, complications from anesthesia, blood clot, stroke, myocardial infarction, or even . The possibility of nonoperative treatment has been offered. Pulmonary: Continue aggressive pulmonary toilette, nasotracheal suction, and breathing treatments with nebulizers. Daily PT and OT Renal: Continue to monitor closely urine output, BUN and creatinine Endocrine: Continue to Monitor serial Acu checks and SSI as needed in detail ID continue to monitor for signs of infection Continue Protonix for stress ulcer prophylaxis Continue Cruz hose and SCD's for DVT prophylaxis The exam, history, and the medical decision-making described in the above note were completed with the assistance of the mid-level provider. I reviewed and agree with the findings presented. I attest that I had a [id number] encounter with the patient on the same day, and personally performed and documented my assessment and findings in the medical record. <Jordin Rosenbaum - Last Filed: 09/07/18 09:27>
--- NOTE | 2018-09-06 19:03 | P.PNNEU ---
Subjective Subjective Comments: no new neurologic sx. Active Medications: Active Medications Acetaminophen (Tylenol) 650 mg PO Q4H PRN PRN Reason: Temp > 100.4/ pain Last Admin: 09/06/18 16:19 Dose: 650 mg Al Hydroxide/Mg Hydroxide (Milk Of Magnesia Liq) 30 ml PO Q12H PRN PRN Reason: Mild Constipation Amlodipine Besylate (Norvasc) 5 mg PO DAILY [facility] Atorvastatin Calcium (Lipitor) 10 mg PO DAILY [facility] Last Admin: 09/06/18 08:37 Dose: 10 mg Bisacodyl (Dulcolax Supp) 10 mg RECTAL DAILY PRN PRN Reason: SEVERE CONSITIPATION Carvedilol (Coreg) 3.125 mg PO BID [facility] Last Admin: 09/06/18 08:37 Dose: 3.125 mg Cefazolin Sodium/Dextrose (Ancef 2 Gm Premix Inj) 2 gm in 50 mls @ 100 mls/hr IV.SIG TELEVISION AGENT [facility] Stop: 09/10/18 18:27 Lactulose (Lactulose Liq) 30 ml PO DAILY PRN PRN Reason: SEVERE CONSITIPATION Ondansetron HCl (Zofran Inj) 4 mg IV.PUSH Q6H PRN PRN Reason: NAUSEA OR VOMITING Pantoprazole Sodium (Protonix) 40 mg PO DAILY [facility] Last Admin: 09/06/18 08:37 Dose: 40 mg Senna/Docusate Sodium (Neva-Colace) 1 tab PO BID [facility] Last Admin: 09/06/18 08:37 Dose: 1 tab Sennosides (Senokot) 17.2 mg PO Q12H PRN PRN Reason: Moderate Constipation Sodium Chloride (Ns Flush) 2 ml IV.FLUSH PRN PRN PRN Reason: FLUSH AFTER USING IV ACCESS Allergies/Adverse Reactions: Allergies Allergy/AdvReac Type Severity Reaction Status Date / Time No Known Allergies Allergy Unverified 09/04/18 23:41 Physical Exam Vital signs: Vital Signs 09/05/18 20:00 09/06/18 03:06 09/06/18 07:27 Temperature 97.4 F L 97.6 F Pulse Rate 102 H 90 95 H Respiratory Rate 18 20 18 Blood Pressure 133/85 136/74 141/84 H Pulse Oximetry 103 H 97 96 09/06/18 11:29 09/06/18 15:24 Temperature 97.5 F L 97.7 F Pulse Rate 92 H 95 H Respiratory Rate 18 18 Blood Pressure 142/79 H 122/76 Pulse Oximetry 100 100 Intake & Output 09/06/18 09/06/18 09/07/18 06:59 18:59 06:59 Intake Total 1000 / 1000 Balance 1000 / 1000 Intake: IV 1000 / 1000 NS Inj 1,000 ML @ 100 mls/hr IV 1000 / 1000 .CONT .Q10H [facility] Rx#:[id number] Other: Date of Last Bowel Movement 09/06/18 - Routine Neurological Exam alert, speech normal CN intact MOTOR 5/5 BUE and BLE Objective Radiology Results: carotid US--no significant stenosis Review/Management - Review/Management Plan: I agree with plan to proceed with surgery for right hemisphere tumor
[2018-09-07] MEDS ORDERED: ceFAZolin 2 GM Premix Inj 2 GM/50 ML PIGGYBACK IV.SIG PRN (06:00)
[2018-09-07] MEDS ORDERED: Thrombin Topical Soln 5,000 UNIT Vial TOPICAL ONE (07:38)
[2018-09-07] MEDS ORDERED: Lidocaine 1%/Epinephrine 1:100,000 Inj 50 ML Vial ONE (07:39)
[2018-09-07] MEDS ORDERED: Gelatin Size 100 Topical Foam ONE (07:39)
[2018-09-07] MEDS ORDERED: Propofol Inj 500 MG/50 ML Vial ONE (08:06)
[2018-09-07] MEDS ORDERED: Bisacodyl 10 MG Supp RECTAL PRN (09:27)
[2018-09-07] MEDS ORDERED: Morphine Sulfate Inj 2 MG/ML Vial IV.PUSH PRN (09:28)
[2018-09-07] MEDS ORDERED: fentaNYL Citrate Inj 100 MCG/2 ML Ampul ONE (11:34)
[2018-09-07] MEDS ORDERED: *morphine SULFATE 4 MG/ML PERIprocedure ONLY ONE (11:47)
--- NOTE | 2018-09-07 12:16 | P.OP ---
Preoperative Diagnosis: Right frontalparietal mass Postoperative Diagnosis: Right frontalparietal mass Date of procedure: 09/07/18 Procedure: Stereotactic image guided right frontal craniotomy with microsurgical resection of meningioma. Anesthesia: JARRODA Surgeon: Jordin Rosenbaum MD Foot Doctor: SULY AYALA Pathology: none sent Operation and Findings: INTRAOPERATIVE FINDINGS Dural base right frontal mass consistent with meningioma. INDICATIONS Mr. Cannon is a 62-year-old male who presented with altered mental status. He was found to have a large dural base frontal mass consistent with a brain tumor , possibly a meningioma. This was causing mass effect on the underlying brain. Surgical resection was indicated. I have discussed with him the [id number] details of the procedure, its indications, alternatives, risks and potential complications with the patient including but not limited to the risk of infection, hemorrhage, paralysis, stroke, heart attack, even vegetative state or even the possibility of . The patient fully understands. All her questions were answered. No guarantees were given. She voiced requesting the procedure and provided informed consent. She has been offered the alternative of not having aggressive management. DETAILS OF THE SURGICAL PROCEDURE Prior to the surgery the patient underwent MRI of the brain according to the stereotactic protocol. The information was transferred to the workstation located in the operative suite. Preoperative registration was performed. The patient was then transferred to the operating room. After induction of general anesthesia, endotracheal intubation was done. A Palafox catheter, bilateral DAYANARA hose, sequential compression devices were placed and kept throughout the procedure. The patient was positioned supine on a 30/80 table over gel rolls with her head in a flexed and rigid fixation using the [place] venereal disease control head. All pressure points were carefully padded with egg crate mattress. The eyes were tapped shut after ointment was applied by the anesthesiologist to prevent corneal abrasion. A Jose hugger was placed over the expossed lower body to maintain control of the core body temperature. The electrophysiological team placed the needles and electrodes in their proper location and baseline SSEP's evoked potentials were registered. The rigid reference body was attached to the venereal disease control head and intraoperative registration was performed with a laser. The right frontotemporal parietal area was shaved, prepped and draped in the usual sterile fashion. A standard horseshoe incision was outlined on the scalp and infiltrated with 1% lidocaine with epinephrine. The skin incision was made with a #10 blade down to the level of the periosteum in the frontoparietal region. Danilo clips were applied to the scalp. Using a Bovie, the temporalis fascia and muscle were incised and a subperiosteal dissection was performed reflecting the scalp flap anteriorly. The scalp was covered with a moist sponge and held in position using fish hooks. The TPS drill was brought to the field and a bur hole was made in the fontotemporal region using the craniotome attachment. Then, using the footplate attachment, a frontal craniotomy flap was elevated. The dura was bulging, with obvious mass effect due to the underlying tumor. The tumor was identified with the brainlab, and the dura was opened with a 15 blade and metzembaun sissors and retracted with 4-0 Neurolon sutures attached to the fascia. A large dural based mass was identified. At this point of the procedure the operative microscope was draped in the usual sterile fashion and brought to the field. The rest of the surgical procedure was performed using microdissection technique with the exception of the closure. Under the operative microscope the mass was resected using microsurgical dissection technique, with the micro-bipolar forceps, microscissors, micro- suction, and gentle irrigation, preserving the tumor-arachnoid interfase intact. The specimen was sent to the lab for histological analysis. Appropriate hemostasis was then secured using the bipolar grinder set up operator jig. Then the incision was irrigated with saline solution. The dural edges were tacked to the bone. The craniotomy flap was then repositioned and secured in place using Striker plates and screws. A 7 millimeter Cosmo-Barton drain was then left in the subgaleal space and externalized through a separate stab incision. The incision was then closed in layers. 0 Vicryl in interrupted sutures were used to close the temporalis fascia. The galea was closed with interrupted 3- 0 Vicryl. Suleiman were applied to the skin. The drain was secured with a 3-0 nylon. At the end of the procedure, the sponge, needle and instrument counts were all correct. Estimated blood loss was less than 70-80 cc. No blood transfusion was given. No intraoperative complications occurred. The patient received prophylactic antibiotics. The patient was then transferred to the recovery room in stable condition. COMPLICATIONS None
[2018-09-07] MEDS ORDERED: Dextrose 50% in Water 50 ML Vial IV.PUSH PRN (12:24)
[2018-09-07] MEDS ORDERED: Potassium Chloride 25 MEQ Effervescent Tablet PO PRN (12:25)
[2018-09-07] MEDS ORDERED: Potassium Chlor 40 mEq Premix 40 MEQ/100 ML PIGGYBACK IV.SIG PRN ×2 (12:25)
[2018-09-07] MEDS ORDERED: Potassium Chlor 20 mEq Premix 20 MEQ/100 ML PIGGYBACK IV.SIG PRN ×2 (12:25)
[2018-09-07] MEDS ORDERED: Magnesium Sulfate Inj 4 GM in Sodium Chlor 0.9% Inj 92 ML IV.SIG PRN (12:25)
[2018-09-07] MEDS ORDERED: Potassium Phosphate Inj 30 MMOL in Sodium Chlor 0.9% Inj 250 ML IV.SIG PRN (12:25)
[2018-09-07] MEDS ORDERED: Magnesium Sulfate Inj 2 GM in Sodium Chlor 0.9% Inj 96 ML IV.SIG PRN (12:25)
[2018-09-07] MEDS ORDERED: Potassium Phosphate 500 MG Soluble Tablet PO PRN ×2 (12:25)
[2018-09-07] MEDS ORDERED: Sodium Phosphate Inj 30 MMOL in Sodium Chlor 0.9% Inj 250 ML IV.SIG PRN (12:25)
[2018-09-07] MEDS ORDERED: Magnesium Oxide 400 MG Tablet PO PRN (12:25)
--- NOTE | 2018-09-07 12:30 | P.CONCC ---
History of Present Illness Service: Critical care medicine Consult date: 09/07/18 Requesting Physician: Jordin Rosenbaum Reason for Consult: Medical management Primary Care Provider: [facility] Chief Complaint: blurred vision History of Present Illness: This is a 62-year-old male. Date of admission 09/05/2018. Date of consultation 09/07/2018. Past medical history includes history of DVT involving the left popliteal and peroneal veins requiring IVC filter due to recent GI bleed, superficial bilateral cephalic thrombus,, gastroesophageal disease, essential hypertension hyperlipidemia, iron deficiency, umbilical hernia, hepatic cyst and left renal cyst and right renal calyx calcification,. Patient also has a past history of tobacco abuse, alcohol use, and cocaine and heroin use according to old H&P's. Patient originally presented to [facility] with chief complaint of blurry vision and subjective right-sided numbness "spasm. Follow neurological examination did not reveal such symptoms. The ED, patient had a CT of the brain which revealed a large right frontoparietal mass. Follow-up imaging MRI brain revealed a 3.4 x 2.9 cm right frontoparietal mass likely meningioma. Patient was evaluated by Dr. Rosenbaum/neurosurgery Dr. Cox/neurology. Dr. Cox standpoint, patient had a CT angiogram of the brain which showed no obvious visualization of the right vertebral artery otherwise negative. Rule out amaurosis fugax. Today, patient underwent a stereotactic image guided right frontal craniotomy with microsurgical resection of a meningioma by Dr. Rosenbaum. Received 1700 cc crystalloid. EBL 100 cc. Urine output 350 cc. Postoperatively, the patient was extubated and received 500 mg of levetiracetam and [address] brain postoperative has been completed. This revealed some pneumocephalus otherwise unremarkable his ARTURO is with serosanguineous drainage. He is being evaluated in room 1307 at the present time. He is currently on nasal cannula. Still somewhat somnolent post anesthesia Review of Systems unobtainable due to mental status PMFSH - History History Provided By: Patient - Medical History Medical History: Medical History (Last Reviewed 09/07/18 @ 12:52 by Joey Lion MD) Borderline diabetic DVT (deep venous thrombosis) Gastroesophageal reflux disease High cholesterol Hypertension Iron deficiency Renal calculus, right Renal cyst, left Superficial venous thrombosis of both upper extremities Umbilical hernia - Surgical History Surgical History: Surgical History (Last Reviewed 09/07/18 @ 12:52 by Joey Lion MD) H/O hernia repair H/O neck surgery S/P insertion of IVC (inferior vena caval) filter S/P right rotator cuff repair - Family History Family History: Family History (Last Updated 09/07/18 @ 12:35 by Joey Lion MD) Father Family history of myocardial infarction Mother Family history of bladder cancer - Tobacco History Second Hand Smoke Exposure: No Tobacco Use In Past 30 Days: No Smoking Status: Former smoker - Alcohol History How Often Do You Have a Drink Containing Alcohol: Never - Substance Use History Substance History: Past History (Heroin and cocaine) - Travel History Recent Travel in the [place] Within the Last 8 Weeks: No Recent Travel Out of the Country Within the Last 8 Weeks: No - Immunization History Tetanus Immunization: Unsure Medications and Allergies Active Medications: Active Medications Acetaminophen (Tylenol) 650 mg PO Q4H PRN PRN Reason: Temp > 100.4/ pain Last Admin: 09/06/18 21:41 Dose: 650 mg Al Hydroxide/Mg Hydroxide (Milk Of Jes Caro) 30 ml PO Q12H PRN PRN Reason: Mild Constipation Amlodipine Besylate (Norvasc) 5 mg PO DAILY [facility] Atorvastatin Calcium (Lipitor) 10 mg PO DAILY [facility] Last Admin: 09/06/18 08:37 Dose: 10 mg Bisacodyl (Dulcolax Supp) 10 mg RECTAL DAILY PRN PRN Reason: SEVERE CONSITIPATION Carvedilol (Coreg) 3.125 mg PO BID [facility] Last Admin: 09/06/18 21:39 Dose: 3.125 mg Dexamethasone Sodium Phosphate (Decadron Inj) 4 mg IV.PUSH Q6H [facility] Last Admin: 09/07/18 10:00 Dose: Not Given Dextrose (D50w Vial) 50 ml IV.PUSH UNSCH PRN PRN Reason: PER HYPOGLYCEMIA PROTOCOL Glucagon (Glucagon Inj) 1 mg OTHER PRN PRN PRN Reason: for Hypoglycemia Protocol Cefazolin Sodium/Dextrose (Ancef 2 Gm Premix Inj) 2 gm in 50 mls @ 100 mls/hr IV.SIG [facility] Stop: 09/10/18 18:27 Cefazolin Sodium/Dextrose (Ancef 2 Gm Premix Inj) 2 gm in 50 mls @ 100 mls/hr IV.SIG Q8H [facility] Stop: 09/08/18 09:29 Potassium Chloride/Sodium Chloride (Ns + Kcl 20 Meq Inj) 1,000 mls @ 100 mls/ hr IV.CONT .Q10H [facility] Last Admin: 09/07/18 12:05 Dose: 100 mls/hr Levetiracetam 500 mg/ Sodium (Chloride) 105 mls @ 400 mls/hr IV.SIG ONCE ONE Stop: 09/07/18 13:15 Levetiracetam 500 mg/ Sodium (Chloride) 105 mls @ 400 mls/hr IV.SIG Q12H [facility] Magnesium Sulfate 4 gm/ Sodium (Chloride) 100 mls @ 50 mls/hr IV.SIG UNSCH PRN PRN Reason: For Magnesium 0.9 - 1.1 mg/dL Magnesium Sulfate 2 gm/ Sodium (Chloride) 100 mls @ 50 mls/hr IV.SIG UNSCH PRN PRN Reason: For Magnesium 1.2 - 1.6 mg/dL Potassium Chloride (Kcl 40 Meq Premix Inj) 40 meq in 100 mls @ 25 mls/hr IV.SIG Q2H PRN PRN Reason: For Potassium 2.8 - 3.2 mEq/L Potassium Chloride (Kcl 20 Meq Premix Inj) 20 meq in 100 mls @ 50 mls/hr IV.SIG Q2H PRN PRN Reason: For Potassium 3.3 - 3.5 mEq/L Potassium Chloride (Kcl 40 Meq Premix Inj) 40 meq in 100 mls @ 25 mls/hr IV.SIG UNSCH PRN PRN Reason: For Potassium 3.3 - 3.5 mEq/L Potassium Chloride (Kcl 20 Meq Premix Inj) 20 meq in 100 mls @ 50 mls/hr IV.SIG Q2H PRN PRN Reason: For Potassium 2.8 - 3.2 mEq/L Potassium Phosphate 30 mmol/ (Sodium Chloride) 260 mls @ 42 mls/hr IV.SIG UNSCH PRN PRN Reason: SEE LABEL COMMENTS Sodium Phosphate 30 mmol/ (Sodium Chloride) 260 mls @ 42 mls/hr IV.SIG UNSCH PRN PRN Reason: For Phosphorus < 2.5 mg/dL Insulin Aspart (Novolog Insulin Correctional Sugar Inj) 0 unit SQ Q6HR [facility]; Protocol Lactulose (Lactulose Liq) 30 ml PO DAILY PRN PRN Reason: SEVERE CONSITIPATION Magnesium Oxide (Mag-Ox) 800 mg PO UNSCH PRN PRN Reason: For Magnesium 1.2 - 1.6 mg/dL Mannitol (Mannitol Inj) 25 gm IV.SIG Q6H [facility] Stop: 09/09/18 13:00 Morphine Sulfate (Morphine Inj) 2 mg IV.PUSH Q2H PRN PRN Reason: Pain Scale 1 to 6 Ondansetron HCl (Zofran Inj) 4 mg IV.PUSH Q6H PRN PRN Reason: NAUSEA OR VOMITING Pantoprazole Sodium (Protonix) 40 mg PO DAILY [facility] Last Admin: 09/06/18 08:37 Dose: 40 mg Potassium Bicarb/Potassium Chloride (K-Lyte Cl Eff) 50 meq PO UNSCH PRN PRN Reason: For Potassium 3.3 - 3.5 mEq/L Potassium Phosphate (K-Phos Original) 2,000 mg PO Q4H PRN PRN Reason: Phosphorus Less Than 2.5 mg/dL Potassium Phosphate (K-Phos Original) 2,000 mg PO UNSCH PRN PRN Reason: SEE LABEL COMMENTS Senna/Docusate Sodium (Neva-Colace) 1 tab PO BID [facility] Sennosides (Senokot) 17.2 mg PO Q12H PRN PRN Reason: Moderate Constipation Sodium Chloride (Ns Flush) 2 ml IV.FLUSH PRN PRN PRN Reason: FLUSH AFTER USING IV ACCESS Allergies Allergy/AdvReac Type Severity Reaction Status Date / Time No Known Allergies Allergy Unverified 09/04/18 23:41 Home Medications Medication Instructions Recorded Confirmed Type amlodipine 5 mg PO DAILY 09/05/18 09/05/18 History apixaban [Eliquis] 2.5 mg PO BID 09/05/18 09/05/18 History atorvastatin 10 mg PO DAILY 09/05/18 09/05/18 History carvedilol 6.25 mg PO BID 09/05/18 09/05/18 History ferrous sulfate 324 mg PO TID 09/05/18 09/05/18 History furosemide 40 mg PO DAILY 09/05/18 09/05/18 History lisinopril 5 mg PO DAILY 09/05/18 09/05/18 History pantoprazole 40 mg PO DAILY 09/05/18 09/05/18 History potassium chloride 20 meq PO BID 09/05/18 09/05/18 History spironolactone 25 mg PO DAILY 09/05/18 09/05/18 History Physical Exam Vital signs: Vital Signs 09/06/18 15:24 09/06/18 19:20 09/06/18 23:10 Temperature 97.7 F 97.8 F 98.7 F Pulse Rate 95 H 98 H 107 H Respiratory Rate 18 18 18 Blood Pressure 122/76 126/82 141/87 H Pulse Oximetry 100 95 100 09/07/18 03:46 Temperature 98.2 F Pulse Rate 109 H Respiratory Rate 18 Blood Pressure 146/82 H Pulse Oximetry 98 Intake & Output 09/06/18 09/07/18 09/07/18 18:59 06:59 18:59 Intake Total 1700 / 1700 Output Total 450 / 450 Balance 1250 / 1250 Intake: Anesthesia Amount 1700 / 1700 Output: Estimated Blood Loss 100 / 100 Urine Amount (Catheter) 350 / 350 Indwelling Urethral Catheter 350 / 350 Other: Date of Last Bowel Movement 09/06/18 09/06/18 - Constitutional no acute distress - Routine HEENT Exam Head: Absent: normocephalic (Status post right frontal craniotomy) Eye: Present: EOMI, PERRL ENT: Present: mucous membranes moist - Routine Neck Exam Present: supple, full ROM. Absent: JVD - Routine Respiratory Exam Absent: accessory muscle use - Routine Cardiovascular Exam Present: RRR, S1, S2. Absent: murmur - Routine Abdominal Exam Present: soft, normoactive bowel sounds - Routine Exam Patient deferred: penile exam, testicular exam, scrotal exam, groin exam, perineal exam - Routine Extremities Exam Absent: cyanosis, clubbing, edema - Routine Skin Exam Present: intact - Routine Neurological Exam Present: alert, oriented X3, motor deficit (Left upper lower extremity weakness) , pronator drift (Left facial droop). Absent: CN II-XII intact - Detailed Neurological Exam: Coma Scale Eye Opening: Spontaneous Verbal Response: Oriented Motor Response: Obey commands Kathy Coma Scale Total: 15 - Routine Psychiatric Exam Present: unable to assess - Urinary Catheter Management Indwelling Urethral Catheter Cath placed during this visit: yes Reason for continuing: Hourly intake/output Insertion date: 09/07/18 Insertion time: 08:45 Septic Shock Reassessment Septic shock perfusion: reassessment completed Assessment and Plan - Assessment and Plan Plan: Neuro/Psych: Postoperative day #1 stereotactic image guided right frontal craniotomy with micro surgical resection of meningioma History of left cerebellar CVA MRI brain 09/05 revealed 2.9 x 3.4 cm right frontal parietal extra-axial mass likely meningioma Status post stereotactic image guided craniotomy with resection as above Currently on dexamethasone 4 mg IV every 6 hours Continue levetiracetam 500mg IV twice daily Continue mannitol 25 g every 6 hours per neurosurgery times 24 hours Frequent neuro check Follow-up CT brain postop Acetaminophen 650 by mouth every 6 hours as needed fever Morphine sulfate 2 mg IV q. hours as needed pain CV: Essential hypertension Hyperlipidemia Currently on carvedilol 3.5 mg twice daily for hypertension Holding lisinopril 5 mg daily, amlodipine 5 mg daily furosemide 40 mg daily and spironolactone 25 mg twice daily/home medications for hypertension Continue atorvastatin 10 mg daily/home medication for dyslipidemia 2D echocardiogram revealed EF 55-60%. LVH. Rate 1 diastolic dysfunction. PAP 25 mmHg Resp: Nasal cannula to maintain saturations greater than equal to 92% Incentive spirometry while awake As needed albuterol aerosols every 2 hours as needed for dyspnea GI: Gastroesophageal reflux disease Umbilical hernia Advance diet per neurosurgery Pantoprazole for gastroesophageal reflux disease 40 mg daily/home medication Docusate sodium/senna 1 tablet twice daily for bowel regimen : Palafox catheter as needed. Straight cath every 6 hours as needed Endo: History of diabetes mellitus? Sliding scale insulin with aspart insulin to maintain euglycemia/low regimen every 6 hours Renal: History of right renal calyx History of left renal cyst Monitor urine output Accurate I's and O's Follow-up on BMP mag phosphorus a.m. 09/08 Heme: Iron deficiency Chronic apixaban use History of left popliteal/peroneal DVT status post IVC filter 01/14 History superficial by lateral cephalic thrombus Leukocytosis Currently holding apixaban 2.5 mg twice daily/home medication Currently holding ferrous sulfate 320 mg p.o. 3 times daily/home medication Recheck CBC in a.m. 09/08 ID: Postoperative antibiotics with cefazolin 2 g IV every 8 hours x3 dosages per neurosurgery MSK: Elevated BMI Weight loss encouraged PT/OT evaluate and treat FEN: Currently on normal saline with 20 mEq potassium chloride at 100 cc an hour Replace electrolytes as clinically indicated per ICU likely protocol Access -Utilize peripheral IV. Central line if indicated Prophylaxis -GI -pantoprazole -DVT -SCD/pharmacological prophylaxis when okay with neurosurgery Level 3 consult Code Status: Full code Discussed Condition With: Dr. Rosenbaum/neurosurgery. Patient. [facility] RN. CARE plan discussed and all questions answered.
[2018-09-07] MEDS ORDERED: Acetaminophen 325 MG Tablet PO PRN (12:49)
--- NOTE | 2018-09-07 13:26 | CT ---
EXAM DATE: 09/07/2018 12:59 PM EDT AGE/SEX: 62 years / Male INDICATIONS: Post op brain mass removal CLINICAL DATA: This is the patient's subsequent encounter. Patient reports that signs and symptoms h ave been present for 2 days and indicates a pain score of 2/10. MEDICAL/SURGICAL HISTORY: Hypertension. Deep venous thrombosis. Brain mass . Brain Mass removal RADIATION DOSE: 41.93 CTDI (mGy) COMPARISON: [facility] [place], CT HEAD W/O CONTRAST, 09/05/2018. . TECHNIQUE: CT of the head without contrast. Using automated exposure control and adjustment of the mA and/or kV according to patient size, radiation dose was kept as low as reasonably achievable to ob tain optimal diagnostic quality images. DICOM format image data is available electronically for revi ew and comparison. FINDINGS: There has been interval right frontal craniotomy and brain mass resection. A subdural drain is presen t. There is mild extra-axial air noted. Minimal hemorrhagic density along the high convexity frontal region adjacent to the subdural drain. No evidence of significant parenchymal edema or brain shift. V entricles remain stable symmetric and normal. Contralateral left hemisphere is stable and benign. Pos terior fossa and brainstem structures are stable and benign. CONCLUSION: 1. Satisfactory postop appearance. . Electronically signed by: Feliciano Echeverria MD 09/07/2018 1:25 PM EDT
[2018-09-07] MEDS: ceFAZolin 2 GM Premix Inj 2 GM/50 ML PIGGYBACK IV.SIG SCH ×2 (16:32→16:33)
[2018-09-07] MEDS: Insulin NovoLOG Aspart Correctional Sugar Inj SQ SCH (17:44)
[2018-09-07] MEDS: Senna/Docusate Sodium 8.6/50 MG Tablet PO SCH (21:05)
[2018-09-08] MEDS: ceFAZolin 2 GM Premix Inj 2 GM/50 ML PIGGYBACK IV.SIG SCH ×3 (00:25→08:11)
[2018-09-08] MEDS: Insulin NovoLOG Aspart Correctional Sugar Inj SQ SCH ×4 (00:25→18:45)
[2018-09-08 04:07] LABS: Hematocrit 39.8 % (39.0-51.0); Hemoglobin 13.2 gm/dL (13.0-17.0); Lymph # (Auto) 0.7 th/mm3 (1.0-4.8); Lymph % (Auto) 4.8 % (9.0-44.0); Mean Corpuscular HGB Conc 33.2 % (32.0-36.0); Mean Corpuscular Hemoglobin 31.2 pg (27.0-34.0); Mean Corpuscular Volume 94.1 fL (80.0-100.0); Mean Platelet Volume 9.4 fL (7.0-11.0); Mono # (Auto) 0.2 th/mm3 (0.0-0.9); Mono % (Auto) 1.6 % (0.0-8.0); Neut # (Auto) 13.4 th/mm3 (1.8-7.7); Neut % (Auto) 93.6 % (16.0-70.0); Platelet Count 159 th/mm3 (150-450); Red Blood Count 4.23 mil/mm3 (4.50-5.90); Red Cell Distribution Width 12.8 % (11.6-17.2); White Blood Count 14.3 th/mm3 (4.0-11.0)
[2018-09-08 04:35] LABS: Calcium 8.3 mg/dL (8.5-10.1); Carbon Dioxide 29.8 meq/L (21.0-32.0); Magnesium 2.1 mg/dL (1.5-2.5); Phosphorus 2.2 mg/dL (2.5-4.9); Potassium 3.8 meq/L (3.5-5.1)
[2018-09-08] MEDS: Senna/Docusate Sodium 8.6/50 MG Tablet PO SCH ×2 (08:09→20:07)
[2018-09-08] MEDS: Labetalol HCl Inj 100 MG/20 ML Vial IV.PUSH PRN ×3 (11:05→18:45)
--- NOTE | 2018-09-08 11:29 | P.PNNS ---
Subjective Interval history: Patient with any issues. pain controlled. alarcon in place Physical Exam Vital signs: Vital Signs 09/07/18 11:30 09/07/18 11:45 09/07/18 12:00 Temperature Pulse Rate 88 84 84 Respiratory Rate 17 10 L 11 L Blood Pressure 119/72 126/78 117/65 Pulse Oximetry 96 97 97 09/07/18 12:15 09/07/18 12:30 09/07/18 12:45 Temperature Pulse Rate 85 90 91 H Respiratory Rate 9 L 15 12 Blood Pressure 117/68 131/66 134/73 Pulse Oximetry 99 96 96 09/07/18 13:19 09/07/18 13:20 09/07/18 13:52 Temperature Pulse Rate 93 H 90 Respiratory Rate 9 L Blood Pressure 135/78 113/65 Pulse Oximetry 99 99 09/07/18 14:00 09/07/18 14:14 09/07/18 15:00 Temperature Pulse Rate 94 H 90 91 H Respiratory Rate 12 17 Blood Pressure 123/65 110/80 Pulse Oximetry 99 99 09/07/18 16:00 09/07/18 17:00 09/07/18 18:00 Temperature 98.4 F Pulse Rate 93 H 94 H 92 H Respiratory Rate 11 L 11 L 11 L Blood Pressure 119/78 161/85 H 132/81 Pulse Oximetry 100 99 100 09/07/18 19:00 09/07/18 20:00 09/07/18 21:00 Temperature 97.8 F Pulse Rate 97 H 100 H 103 H Respiratory Rate 26 H 13 13 Blood Pressure 140/73 153/94 H 155/86 H Pulse Oximetry 99 98 100 09/07/18 22:00 09/07/18 23:00 09/07/18 23:44 Temperature Pulse Rate 108 H 109 H Respiratory Rate 14 15 12 Blood Pressure 161/93 H 142/87 H Pulse Oximetry 99 98 09/08/18 00:00 09/08/18 01:00 09/08/18 02:00 Temperature Pulse Rate 111 H 108 H 107 H Respiratory Rate 13 13 10 L Blood Pressure 121/74 153/86 H 166/99 H Pulse Oximetry 83 L 97 95 09/08/18 03:00 09/08/18 03:15 09/08/18 04:00 Temperature 97.6 F Pulse Rate 113 H 111 H 107 H Respiratory Rate 14 29 H 11 L Blood Pressure 135/87 172/92 H Pulse Oximetry 95 98 96 09/08/18 04:41 09/08/18 05:00 09/08/18 05:06 Temperature Pulse Rate 106 H 103 H 104 H Respiratory Rate 17 19 12 Blood Pressure 154/88 H 164/107 H 158/93 H Pulse Oximetry 97 96 98 09/08/18 06:00 09/08/18 06:02 09/08/18 08:00 Temperature 97.9 F Pulse Rate 107 H 105 H 112 H Respiratory Rate 14 18 16 Blood Pressure 169/104 H 151/93 H 150/100 H Pulse Oximetry 96 97 96 09/08/18 09:00 Temperature Pulse Rate 106 H Respiratory Rate Blood Pressure Pulse Oximetry Intake & Output 09/07/18 09/08/18 09/08/18 18:59 06:59 18:59 Intake Total 1855 / 1855 1635 / 1635 1190 / 1190 Output Total 2280 / 2280 3100 / 3100 780 / 780 Balance -425 / -425 -1465 / -1465 410 / 410 Intake: IV 155 / 155 1155 / 1155 950 / 950 NS + KCl 20 mEq Inj 1,000 ML @ 1000 / 1000 950 / 950 100 mls/hr IV.CONT .Q10H [facility] Rx #:[id number] Ancef 2 GM Premix Inj 2 gm In 50 / 50 50 / 50 50 ml @ 100 mls/hr IV.SIG Q8H [facility] Rx#:[id number] Keppra Inj 500 MG In NS Inj 100 105 / 105 105 / 105 ML @ 400 mls/hr IV.SIG Q12H [facility] Rx#:[id number] Oral 480 / 480 240 / 240 Anesthesia Amount 1700 / 1700 Output: Estimated Blood Loss 100 / 100 Urine Amount (Catheter) 2150 / 2150 3000 / 3000 750 / 750 Indwelling Urethral Catheter 2150 / 2150 3000 / 3000 750 / 750 Wound Drainage 30 / 30 100 / 100 30 / 30 # 1 Right Head 30 / 30 100 / 100 30 / 30 Narrative: E4 bright AOx3 fcc x4 without drift 5/5 on the right 4/5 on the left hemibody (patient reports baseline) incision: CDI ARTURO: 130 cc over 24 hours, appears to be CSF - Urinary Catheter Management Indwelling Urethral Catheter Cath placed during this visit: yes, but has since been removed by the nurse Reason for continuing: Decision to DC catheter Insertion date: 09/07/18 Insertion time: 08:45 Removal date: 09/08/18 Removal time: 09:30 Assessment and Plan - Plan 62 yo POD 1 crani for meningioma -DC ARTURO today -Normalize, will transfer to floor, ok to be OOB (activity as tolerated) -PT assessment pending for disposition recommendations -pain control -will dc alarcon below statement in error The exam, history, and the medical decision-making described in the above note were completed with the assistance of the mid-level provider. I reviewed and agree with the findings presented. I attest that I had a [id number] encounter with the patient on the same day, and personally performed and documented my assessment and findings in the medical record.
--- NOTE | 2018-09-08 22:14 | P.PNCC ---
Subjective Subjective Remarks/Hospital Course: Hospital Course: This is a 62-year-old male. Date of admission 09/05/2018. Date of consultation 09/07/2018. Past medical history includes history of DVT involving the left popliteal and peroneal veins requiring IVC filter due to recent GI bleed, superficial bilateral cephalic thrombus,, gastroesophageal disease, essential hypertension hyperlipidemia, iron deficiency, umbilical hernia, hepatic cyst and left renal cyst and right renal calyx calcification,. Patient also has a past history of tobacco abuse, alcohol use, and cocaine and heroin use according to old H&P's. Patient originally presented to [facility] with chief complaint of blurry vision and subjective right-sided numbness "spasm. Follow neurological examination did not reveal such symptoms. The ED, patient had a CT of the brain which revealed a large right frontoparietal mass. Follow-up imaging MRI brain revealed a 3.4 x 2.9 cm right frontoparietal mass likely meningioma. Patient was evaluated by Dr. Rosenbaum/neurosurgery Dr. Cox/neurology. Dr. Cox standpoint, patient had a CT angiogram of the brain which showed no obvious visualization of the right vertebral artery otherwise negative. Rule out amaurosis fugax. Today, patient underwent a stereotactic image guided right frontal craniotomy with microsurgical resection of a meningioma by Dr. Rosenbaum. Received 1700 cc crystalloid. EBL 100 cc. Urine output 350 cc. Postoperatively, the patient was extubated and received 500 mg of levetiracetam and [address] brain postoperative has been completed. This revealed some pneumocephalus otherwise unremarkable his ARTURO is with serosanguineous drainage. He is being evaluated in room 1307 at the present time. He is currently on nasal cannula. Still somewhat somnolent post anesthesia Subjective: 09/08: doing well. ambulating with assistance. cleared to transfer to floor by nsgy. Objective Vital Signs / I&O: Vital Signs 09/07/18 23:00 09/07/18 23:44 09/08/18 00:00 Temperature Pulse Rate 109 H 111 H Respiratory Rate 15 12 13 Blood Pressure 142/87 H 121/74 Pulse Oximetry 98 83 L 09/08/18 01:00 09/08/18 02:00 09/08/18 03:00 Temperature Pulse Rate 108 H 107 H 113 H Respiratory Rate 13 10 L 14 Blood Pressure 153/86 H 166/99 H Pulse Oximetry 97 95 95 09/08/18 03:15 09/08/18 04:00 09/08/18 04:41 Temperature 36.4 C Pulse Rate 111 H 107 H 106 H Respiratory Rate 29 H 11 L 17 Blood Pressure 135/87 172/92 H 154/88 H Pulse Oximetry 98 96 97 09/08/18 05:00 09/08/18 05:06 09/08/18 06:00 Temperature Pulse Rate 103 H 104 H 107 H Respiratory Rate 19 12 14 Blood Pressure 164/107 H 158/93 H 169/104 H Pulse Oximetry 96 98 96 09/08/18 06:02 09/08/18 08:00 09/08/18 09:00 Temperature 36.6 C Pulse Rate 105 H 112 H 106 H Respiratory Rate 18 16 Blood Pressure 151/93 H 150/100 H Pulse Oximetry 97 96 09/08/18 12:00 09/08/18 16:00 09/08/18 20:00 Temperature 36.7 C 36.8 C 37.1 C Pulse Rate 98 H 98 H 101 H Respiratory Rate 13 18 13 Blood Pressure 157/88 H 159/82 H 156/97 H Pulse Oximetry 97 98 100 09/08/18 21:36 Temperature Pulse Rate Respiratory Rate Blood Pressure Pulse Oximetry 98 Intake & Output 09/08/18 09/08/18 09/09/18 06:59 18:59 06:59 Intake Total 1635 / 1635 1190 / 1190 105 / 105 Output Total 3100 / 3100 780 / 780 Balance -1465 / -1465 410 / 410 105 / 105 Intake: IV 1155 / 1155 950 / 950 105 / 105 NS + KCl 20 mEq Inj 1,000 ML @ 1000 / 1000 950 / 950 100 mls/hr IV.CONT .Q10H KETTY Rx #:[id number] Ancef 2 GM Premix Inj 2 gm In 50 / 50 50 ml @ 100 mls/hr IV.SIG Q8H KETTY Rx#:[id number] Keppra Inj 500 MG In NS Inj 100 105 / 105 105 / 105 ML @ 400 mls/hr IV.SIG Q12H KETTY Rx#:[id number] Oral 480 / 480 240 / 240 Output: Urine Amount (Catheter) 3000 / 3000 750 / 750 Indwelling Urethral Catheter 3000 / 3000 750 / 750 Wound Drainage 100 / 100 30 / 30 # 1 Right Head 100 / 100 30 / 30 Result Diagrams: 09/08/18 03:07 09/08/18 03:07 Objective Remarks: gen: middle-aged male, lying in bed, no acute distress. heent: juno on top of head. incision c/d/i. perrl. mmm. neck: no jvd. trachea midline. chest: equal chest rise. unlabored. room air. cv: normal rate, regular rhythm. sinus. abd: soft, nontender, nondistended. no guarding. extr: no edema. neuro: intact. follows commands. no focal deficits. Assessment and Plan - Assessment and Plan Plan: Neuro/Psych: Postoperative day #2 stereotactic image guided right frontal craniotomy with micro surgical resection of meningioma History of left cerebellar CVA MRI brain 09/05 revealed 2.9 x 3.4 cm right frontal parietal extra-axial mass likely meningioma Status post stereotactic image guided craniotomy with resection as above Currently on dexamethasone 4 mg IV every 6 hours Continue levetiracetam 500mg IV twice daily Continue mannitol 25 g every 6 hours per neurosurgery times 24 hours Frequent neuro check Follow-up CT brain postop Acetaminophen 650 by mouth every 6 hours as needed fever Morphine sulfate 2 mg IV q. hours as needed pain CV: Essential hypertension Hyperlipidemia Currently on carvedilol 3.5 mg twice daily for hypertension Holding lisinopril 5 mg daily, amlodipine 5 mg daily furosemide 40 mg daily and spironolactone 25 mg twice daily/home medications for hypertension Continue atorvastatin 10 mg daily/home medication for dyslipidemia 2D echocardiogram revealed EF 55-60%. LVH. Rate 1 diastolic dysfunction. PAP 25 mmHg Resp: Nasal cannula to maintain saturations greater than equal to 92% Incentive spirometry while awake As needed albuterol aerosols every 2 hours as needed for dyspnea GI: Gastroesophageal reflux disease Umbilical hernia Advance diet per neurosurgery Pantoprazole for gastroesophageal reflux disease 40 mg daily/home medication Docusate sodium/senna 1 tablet twice daily for bowel regimen : Palafox catheter as needed. Straight cath every 6 hours as needed Endo: History of diabetes mellitus? Sliding scale insulin with aspart insulin to maintain euglycemia/low regimen every 6 hours Renal: History of right renal calyx History of left renal cyst Monitor urine output Accurate I's and O's Follow-up on BMP mag phosphorus a.m. 10/13 Heme: Iron deficiency Chronic apixaban use History of left popliteal/peroneal DVT status post IVC filter 01/14 History superficial by lateral cephalic thrombus Leukocytosis Currently holding apixaban 2.5 mg twice daily/home medication Currently holding ferrous sulfate 320 mg p.o. 3 times daily/home medication Recheck CBC in a.m. 09/08 ID: Postoperative antibiotics with cefazolin 2 g IV every 8 hours x3 dosages per neurosurgery MSK: Elevated BMI Weight loss encouraged PT/OT evaluate and treat FEN: Currently on normal saline with 20 mEq potassium chloride at 100 cc an hour Replace electrolytes as clinically indicated per ICU likely protocol Access -Utilize peripheral IV. Central line if indicated Prophylaxis -GI -pantoprazole -DVT -SCD/pharmacological prophylaxis when okay with neurosurgery stable for transfer out of ICU. consult hospitalist service.
[2018-09-09] MEDS: Insulin NovoLOG Aspart Correctional Sugar Inj SQ SCH ×5 (00:30→17:32)
[2018-09-09 04:24] LABS: Hematocrit 37.7 % (39.0-51.0); Hemoglobin 12.5 gm/dL (13.0-17.0); Mean Corpuscular HGB Conc 33.2 % (32.0-36.0); Mean Corpuscular Hemoglobin 31.2 pg (27.0-34.0); Mean Corpuscular Volume 93.8 fL (80.0-100.0); Mean Platelet Volume 9.7 fL (7.0-11.0); Platelet Count 137 th/mm3 (150-450); Red Blood Count 4.02 mil/mm3 (4.50-5.90); Red Cell Distribution Width 12.5 % (11.6-17.2)
[2018-09-09 04:45] LABS: Anion Gap 8 meq/L (5-15); Blood Urea Nitrogen 18 mg/dL (7-18); Calcium 8.2 mg/dL (8.5-10.1); Carbon Dioxide 26.8 meq/L (21.0-32.0); Chloride 109 meq/L (98-107); Glomerular Filtration Rate Greater Than 89 mL/min (>89); Glucose,Random 174 mg/dL (74-106); Magnesium 2.1 mg/dL (1.5-2.5); Phosphorus 2.6 mg/dL (2.5-4.9); Potassium 4.1 meq/L (3.5-5.1); Sodium 144 meq/L (136-145)
--- NOTE | 2018-09-09 07:43 | P.PNNS ---
Subjective Interval history: Patient without any issues. reports stable pain control Physical Exam Vital signs: Vital Signs 09/08/18 08:00 09/08/18 09:00 09/08/18 12:00 Temperature 97.9 F 98.0 F Pulse Rate 112 H 106 H 98 H Respiratory Rate 16 13 Blood Pressure 150/100 H 157/88 H Pulse Oximetry 96 97 09/08/18 16:00 09/08/18 20:00 09/08/18 21:36 Temperature 98.2 F 98.7 F Pulse Rate 98 H 101 H Respiratory Rate 18 13 Blood Pressure 159/82 H 156/97 H Pulse Oximetry 98 100 98 09/09/18 00:00 09/09/18 04:00 Temperature 97.9 F 98.2 F Pulse Rate 96 H 79 Respiratory Rate 12 12 Blood Pressure 151/90 H 147/78 H Pulse Oximetry 97 99 Intake & Output 09/08/18 09/09/18 09/09/18 18:59 06:59 18:59 Intake Total 2140 / 2140 210 / 210 Output Total 780 / 780 875 / 875 Balance 1360 / 1360 -665 / -665 Weight 117.1 kg Intake: IV 1900 / 1900 210 / 210 NS + KCl 20 mEq Inj 1,000 ML @ 1900 / 1900 100 mls/hr IV.CONT .Q10H KETTY Rx #:[id number] Keppra Inj 500 MG In NS Inj 100 210 / 210 ML @ 400 mls/hr IV.SIG Q12H KETTY Rx#:[id number] Oral 240 / 240 Output: Urine 875 / 875 Urine Amount (Catheter) 750 / 750 Indwelling Urethral Catheter 750 / 750 Wound Drainage 30 / 30 # 1 Right Head 30 / 30 Other: # Voids 3 Narrative: E4 bright AOx3 fcc x4 without drift 5/5 on the right 4/5 on the left hemibody (patient reports baseline) incision: CDI - Urinary Catheter Management Indwelling Urethral Catheter Cath placed during this visit: yes, but has since been removed by the nurse Reason for continuing: Decision to DC catheter Insertion date: 09/07/18 Insertion time: 08:45 Removal date: 09/08/18 Removal time: 09:30 Assessment and Plan - Plan 62 yo POD 2 craniotomy for resection of meningioma by Dr. Rosenbaum -ARTURO removed -PT with recommendations of IPR, pending placement -recommend 1-2 week decadron taper -continue keppra -final pathology pending
--- NOTE | 2018-09-09 10:26 | P.PNIM ---
Subjective Interval history: No complaints from patient today. The patient has been refusing to use hospital treatments. He says he wants to resume his baseline home medications and use his home medication so that it does not cost him as much. Physical Exam Vital signs: Vital Signs 09/08/18 12:00 09/08/18 16:00 09/08/18 20:00 Temperature 98.0 F 98.2 F 98.7 F Pulse Rate 98 H 98 H 101 H Respiratory Rate 13 18 13 Blood Pressure 157/88 H 159/82 H 156/97 H Pulse Oximetry 97 98 100 09/08/18 21:36 09/09/18 00:00 09/09/18 04:00 Temperature 97.9 F 98.2 F Pulse Rate 96 H 79 Respiratory Rate 12 12 Blood Pressure 151/90 H 147/78 H Pulse Oximetry 98 97 99 Intake & Output 09/08/18 09/09/18 09/09/18 18:59 06:59 18:59 Intake Total 2140 / 2140 210 / 210 Output Total 780 / 780 875 / 875 Balance 1360 / 1360 -665 / -665 Weight 117.1 kg Intake: IV 1900 / 1900 210 / 210 NS + KCl 20 mEq Inj 1,000 ML @ 1900 / 1900 100 mls/hr IV.CONT .Q10H KETTY Rx #:[id number] Keppra Inj 500 MG In NS Inj 100 210 / 210 ML @ 400 mls/hr IV.SIG Q12H KETTY Rx#:[id number] Oral 240 / 240 Output: Urine 875 / 875 Urine Amount (Catheter) 750 / 750 Indwelling Urethral Catheter 750 / 750 Wound Drainage 30 / # 1 Right Head 30 / 30 Other: # Voids 3 Narrative: GENERAL: NAD, A&Ox3 HEAD: Normocephalic. NECK: Supple, trachea midline. No lymphadenopathy. EYES: No scleral icterus. No injection or drainage. CARDIOVASCULAR: Regular rate and rhythm without murmurs, gallops, or rubs. RESPIRATORY: Breath sounds equal bilaterally. No accessory muscle use. GASTROINTESTINAL: Abdomen soft, non-tender, nondistended. MUSCULOSKELETAL: No cyanosis, or edema. SKIN: Warm and dry. NEURO: Mild left hemiparesis - Urinary Catheter Management Indwelling Urethral Catheter Cath placed during this visit: yes, but has since been removed by the nurse Reason for continuing: Decision to DC catheter Insertion date: 09/07/18 Insertion time: 08:45 Removal date: 09/08/18 Removal time: 09:30 Results - Labs CBC & Chem 7: 09/09/18 03:21 09/09/18 03:21 Laboratory Results - last 24 hr 09/08/18 09/08/18 09/09/18 12:03 18:52 00:19 WBC RBC Hgb Hct MCV MCH MCHC RDW Plt Count MPV Sodium Potassium Chloride Carbon Dioxide Anion Gap BUN Creatinine Estimated GFR POC Glucose 163 H 138 H 108 Random Glucose Calcium Phosphorus Magnesium 09/09/18 09/09/18 03:21 03:21 WBC 17.0 H RBC 4.02 L Hgb 12.5 L Hct 37.7 L MCV 93.8 MCH 31.2 MCHC 33.2 RDW 12.5 Plt Count 137 L MPV 9.7 Sodium 144 Potassium 4.1 Chloride 109 H Carbon Dioxide 26.8 Anion Gap 8 BUN 18 Creatinine 0.95 Estimated GFR Greater than 89 POC Glucose Random Glucose 174 H Calcium 8.2 L Phosphorus 2.6 Magnesium 2.1 Assessment and Plan - Assessment (1) Disturbance, visual, subjective Code(s): H53.10 - Unspecified subjective visual disturbances Status: Acute (2) Brain mass Code(s): G93.9 - Disorder of brain, unspecified Status: Acute - Plan 62-year-old male admitted secondary to neurologic deficit with visual changes secondary to brain mass, now status post craniotomy Status post craniotomy Brain mass Meningioma Visual deficit History of left CVA Continue dexamethasone Continue Keppra Continue mannitol Neurology following Neurosurgery following Continue pain treatments as needed Continue following clinically for neurologic changes Avoid blood thinners for now Holding Lasix for now Hypertension Continue baseline treatment Follow blood pressures Adjust treatments as needed Currently uncontrolled, patient refusing hospital treatments Patient changed to previous p.o. treatments and allowed to use home therapy as requested Hyperlipidemia Continue present treatment Follow as an outpatient Diastolic CHF Lasix on hold Follow clinically Diabetes mellitus type 2 Follow blood sugars Insulin sliding scale Diabetic diet History of right renal calyx History of left renal cyst Follow renal function Iron deficiency Chronic apixaban use History of left popliteal/peroneal DVT status post IVC filter 01/14 History superficial by lateral cephalic thrombus Leukocytosis Apixaban on hold Ferrous sulfate resumed at home doses DVT prophylaxis SCDs pharmacological prophylaxis (apixaban) when okay with neurosurgery
[2018-09-09] MEDS: Senna/Docusate Sodium 8.6/50 MG Tablet PO SCH (11:31)
[2018-09-09] MEDS ORDERED: CARVEDILOL PO ONE (13:00)
[2018-09-09] MEDS ORDERED: Ferrous Sulfate 325 MG Tablet PO SCH (13:00)
[2018-09-09] MEDS: ATORVASTATIN 20 MG PO SCH (21:40)
[2018-09-09] MEDS: POTASSIUM CHLORIDE 20 MEQ PO SCH (21:40)
[2018-09-09] MEDS: Carvedilol 6.25 MG Tablet PO SCH (21:45)
[2018-09-10] MEDS: Insulin NovoLOG Aspart Correctional Sugar Inj SQ SCH ×5 (00:49→23:07)
[2018-09-10 07:51] LABS: Baso % (Auto) 0.1 % (0.0-2.0); Hematocrit 37.4 % (39.0-51.0); Hemoglobin 12.4 gm/dL (13.0-17.0); Lymph # (Auto) 1.1 th/mm3 (1.0-4.8); Lymph % (Auto) 7.6 % (9.0-44.0); Mean Corpuscular HGB Conc 33.3 % (32.0-36.0); Mean Corpuscular Hemoglobin 31.3 pg (27.0-34.0); Mean Corpuscular Volume 94.2 fL (80.0-100.0); Mean Platelet Volume 9.7 fL (7.0-11.0); Mono # (Auto) 0.8 th/mm3 (0.0-0.9); Mono % (Auto) 5.4 % (0.0-8.0); Neut % (Auto) 86.9 % (16.0-70.0); Platelet Count 144 th/mm3 (150-450); Red Blood Count 3.97 mil/mm3 (4.50-5.90); Red Cell Distribution Width 13.1 % (11.6-17.2)
[2018-09-10 08:12] LABS: Anion Gap 9 meq/L (5-15); Aspartate Aminotransferase 21 U/L (15-37); Blood Urea Nitrogen 22 mg/dL (7-18); Calcium 8.8 mg/dL (8.5-10.1); Carbon Dioxide 24.3 meq/L (21.0-32.0); Chloride 110 meq/L (98-107); Glomerular Filtration Rate Greater Than 89 mL/min (>89); Glucose,Random 138 mg/dL (74-106); Magnesium 2.1 mg/dL (1.5-2.5); Sodium 143 meq/L (136-145)
[2018-09-10 08:15] LABS: Alanine Aminotransferase 45 U/L (12-78); Alkaline Phosphatase 71 U/L (45-117); Phosphorus 2.4 mg/dL (2.5-4.9); Total Protein 6.6 g/dL (6.4-8.2)
[2018-09-10] MEDS: Carvedilol 6.25 MG Tablet PO SCH ×2 (08:30→23:03)
[2018-09-10] MEDS: POTASSIUM CHLORIDE 20 MEQ PO SCH ×2 (08:30→23:03)
[2018-09-10] MEDS: LISINOPRIL 10 MG PO SCH (08:31)
[2018-09-10] MEDS: SPIRONOLACTONE 25 MG PO SCH (08:32)
[2018-09-10] MEDS: PANTOPRAZOLE 40 MG PO SCH (08:33)
[2018-09-10] MEDS ORDERED: Spironolactone 25 MG Tablet PO SCH (09:00)
[2018-09-10] MEDS ORDERED: Lisinopril 5 MG Tablet PO SCH (09:00)
--- NOTE | 2018-09-10 13:29 | P.PNIM ---
Subjective Interval history: The patient was sitting up in a chair. He was weighing his options in regards to going to rehab or not. He only wants to take his home medications because he does not want to pay for our medications. He says he will take a stool softener later. No acute concerns. Physical Exam Vital signs: Vital Signs 09/09/18 16:00 09/09/18 17:36 09/09/18 20:00 Temperature 98 F 97.8 F 97.6 F Pulse Rate 91 H 83 98 H Respiratory Rate Blood Pressure 154/86 H 161/118 H 142/87 H Pulse Oximetry 96 99 98 09/10/18 00:00 09/10/18 04:00 09/10/18 08:00 Temperature 98.0 F 98.5 F 97.7 F Pulse Rate 81 82 99 H Respiratory Rate Blood Pressure 162/96 H 125/60 160/104 H Pulse Oximetry 100 97 94 L Intake & Output 09/09/18 09/10/18 09/10/18 18:59 06:59 18:59 Intake Total 605 / 605 105 / 105 105 / 105 Balance 605 / 605 105 / 105 105 / 105 Weight 120.6 kg Intake: IV 605 / 605 105 / 105 105 / 105 NS + KCl 20 mEq Inj 1,000 ML @ 500 / 500 100 mls/hr IV.CONT .Q10H KETTY Rx #:[id number] Keppra Inj 500 MG In NS Inj 100 105 / 105 105 / 105 105 / 105 ML @ 400 mls/hr IV.SIG Q12H KETTY Rx#:[id number] Other: Date of Last Bowel Movement 09/06/18 09/06/18 Narrative: GENERAL: NAD. HEAD: Normocephalic. Renner in place on head. NECK: Supple, trachea midline. No lymphadenopathy. EYES: No scleral icterus. No injection or drainage. CARDIOVASCULAR: Regular rate and rhythm without murmurs, gallops, or rubs. RESPIRATORY: Breath sounds equal bilaterally. No accessory muscle use. GASTROINTESTINAL: Abdomen soft, non-tender, nondistended. MUSCULOSKELETAL: No cyanosis, or edema. SKIN: Warm and dry. NEURO: Mild left hemiparesis - Urinary Catheter Management Indwelling Urethral Catheter Cath placed during this visit: yes, but has since been removed by the nurse Reason for continuing: Decision to DC catheter Insertion date: 09/07/18 Insertion time: 08:45 Removal date: 09/08/18 Removal time: 09:30 Results - Labs CBC & Chem 7: 09/10/18 06:35 09/10/18 06:35 Laboratory Results - last 24 hr 09/09/18 09/10/18 09/10/18 17:26 00:47 05:06 WBC RBC Hgb Hct MCV MCH MCHC RDW Plt Count MPV Neut % (Auto) Lymph % (Auto) [place] % (Auto) Eos % (Auto) Baso % (Auto) Neut # (Auto) Lymph # (Auto) [place] # (Auto) Eos # (Auto) Baso # (Auto) WBC Differential Differential Comment Sodium Potassium Chloride Carbon Dioxide Anion Gap BUN Creatinine Estimated GFR POC Glucose 123 H 147 H 182 H Random Glucose Calcium Phosphorus Magnesium Total Bilirubin AST ALT Alkaline Phosphatase Total Protein Albumin 09/10/18 09/10/18 09/10/18 06:35 06:35 11:50 WBC 15.0 H RBC 3.97 L Hgb 12.4 L Hct 37.4 L MCV 94.2 MCH 31.3 MCHC 33.3 RDW 13.1 Plt Count 144 L MPV 9.7 Neut % (Auto) 86.9 H Lymph % (Auto) 7.6 L [place] % (Auto) 5.4 Eos % (Auto) 0.0 Baso % (Auto) 0.1 Neut # (Auto) 13.0 H Lymph # (Auto) 1.1 [place] # (Auto) 0.8 Eos # (Auto) 0.0 Baso # (Auto) 0.0 WBC Differential . Differential Comment Auto diff final Sodium 143 Potassium 4.0 Chloride 110 H Carbon Dioxide 24.3 Anion Gap 9 BUN 22 H Creatinine 0.98 Estimated GFR Greater than 89 POC Glucose 234 H Random Glucose 138 H Calcium 8.8 Phosphorus 2.4 L Magnesium 2.1 Total Bilirubin 0.2 AST 21 ALT 45 Alkaline Phosphatase 71 Total Protein 6.6 D Albumin 3.0 L Assessment and Plan - Assessment (1) Disturbance, visual, subjective Code(s): H53.10 - Unspecified subjective visual disturbances Status: Acute (2) Brain mass Code(s): G93.9 - Disorder of brain, unspecified Status: Acute - Plan 62-year-old male admitted secondary to neurologic deficit with visual changes secondary to brain mass, now status post craniotomy Status post craniotomy Brain mass Meningioma Visual deficit History of left CVA -Continue dexamethasone. Neurosurgery recommending 1-2 week taper. -Continue Keppra. -s/p mannitol. -Neurology and neurosurgery following. -Continue pain treatments as needed Continue following clinically for neurologic changes Avoid blood thinners for now Holding Lasix for now -rehab efforts. Hypertension Continue baseline treatment Follow blood pressures Adjust treatments as needed Currently uncontrolled, patient refusing hospital treatments -Patient changed to previous p.o. treatments and allowed to use home therapy as requested. Diastolic CHF Lasix on hold Follow clinically Diabetes mellitus type 2 Follow blood sugars Insulin sliding scale Diabetic diet History of right renal calyx History of left renal cyst Follow renal function Iron deficiency Chronic apixaban use History of left popliteal/peroneal DVT status post IVC filter 01/14 History superficial by lateral cephalic thrombus Leukocytosis Apixaban on hold. Resume when cleared by neurosurgery. Ferrous sulfate resumed at home doses DVT prophylaxis SCDs pharmacological prophylaxis (apixaban) when okay with neurosurgery Discharge Planning: ? placement
[2018-09-10] MEDS: ATORVASTATIN 20 MG PO SCH (23:05)
[2018-09-11] MEDS: Insulin NovoLOG Aspart Correctional Sugar Inj SQ SCH ×2 (05:53→13:28)
[2018-09-11] MEDS: POTASSIUM CHLORIDE 20 MEQ PO SCH (08:03)
[2018-09-11] MEDS: Carvedilol 6.25 MG Tablet PO SCH (08:03)
[2018-09-11] MEDS: SPIRONOLACTONE 25 MG PO SCH (08:03)
[2018-09-11] MEDS: LISINOPRIL 10 MG PO SCH (08:03)
[2018-09-11] MEDS: PANTOPRAZOLE 40 MG PO SCH (08:04)
[2018-09-11 09:12] LABS: Hematocrit 38.2 % (39.0-51.0); Hemoglobin 12.6 gm/dL (13.0-17.0); Mean Corpuscular Hemoglobin 30.8 pg (27.0-34.0); Mean Corpuscular Volume 93.5 fL (80.0-100.0); Mean Platelet Volume 9.4 fL (7.0-11.0); Platelet Count 149 th/mm3 (150-450); Red Blood Count 4.09 mil/mm3 (4.50-5.90); Red Cell Distribution Width 12.8 % (11.6-17.2)
[2018-09-11 09:28] LABS: Anion Gap 9 meq/L (5-15); Blood Urea Nitrogen 23 mg/dL (7-18); Calcium 9.2 mg/dL (8.5-10.1); Carbon Dioxide 24.9 meq/L (21.0-32.0); Chloride 107 meq/L (98-107); Glomerular Filtration Rate Greater Than 89 mL/min (>89); Glucose,Random 133 mg/dL (74-106); Magnesium 2.1 mg/dL (1.5-2.5); Phosphorus 2.9 mg/dL (2.5-4.9); Potassium 3.8 meq/L (3.5-5.1); Sodium 141 meq/L (136-145)
--- NOTE | 2018-09-11 09:58 | P.PNNS ---
Subjective Interval history: ambulating around the room, doing well, no new neuro complaints, eager to go home. Physical Exam Vital signs: Vital Signs 09/10/18 12:00 09/10/18 16:00 09/10/18 20:00 Temperature 97.7 F 97.9 F 98.2 F Pulse Rate 88 85 79 Respiratory Rate 18 18 18 Blood Pressure 152/72 H 170/84 H 141/89 H Pulse Oximetry 94 L 99 96 09/11/18 00:00 09/11/18 04:00 Temperature 97.9 F 97.7 F Pulse Rate 79 92 H Respiratory Rate 18 18 Blood Pressure 144/87 H 167/69 H Pulse Oximetry 98 97 Intake & Output 09/10/18 09/11/18 09/11/18 18:59 06:59 18:59 Intake Total 1065 / 1065 105 / 105 Balance 1065 / 1065 105 / 105 Intake: IV 105 / 105 105 / 105 Keppra Inj 500 MG In NS Inj 100 105 / 105 105 / 105 ML @ 400 mls/hr IV.SIG Q12H KETTY Rx#:[id number] Oral 960 / 960 Other: # Voids 3 Date of Last Bowel Movement 09/06/18 09/06/18 Narrative: AOx3 pupils equal facial motor symmetric 5/5 on the right 4/5 on the left hemibody (patient reports baseline) incision: CDI ambulating around the room - Urinary Catheter Management Indwelling Urethral Catheter Cath placed during this visit: yes, but has since been removed by the nurse Reason for continuing: Decision to DC catheter Insertion date: 09/07/18 Insertion time: 08:45 Removal date: 09/08/18 Removal time: 09:30 Assessment and Plan - Plan 62 yo POD 4 craniotomy for resection of meningioma by Dr. Rosenbaum -cont PT -recommend 1-2 week decadron taper -continue keppra -final pathology reviewed, reports meningioma WHO grade 1 -follow up Dr. Rosenbaum office 09/21/18 for staple removal -NRS clear for dc -dc planning to rehab
[2018-09-11 10:00] VITALS: RESP 20
--- NOTE | 2018-09-11 14:41 | P.DS ---
Date of admission: 09/05/18 14:55 Primary care physician: '[facility] Anticipated date of discharge: 09/11/18 Brief History from admission: patient is a 62 y/o male with history of hypertension, dyslipidemia, DVT, who presented to ER with blurred vision. he says that he started to have blurred vision last night. he says that he took his blood pressure and ' it was low'. he 's also complaining of right arm numbness and ' spasm'. he doesn't report any slurred speech or focal weakness. he denies any chest pain or sob but he says that he had some dizziness at the time. he denies chest pain or sob.he doesn't recall any similar episodes in the past. DS: Diagnosis - Discharge Diagnosis (1) Disturbance, visual, subjective Status: Acute (2) Brain mass Status: Acute DS: Medications - Discharge Medications Prescriptions: dexamethasone [Decadron] 4 mg PO DAILY 5 Days #5 tab dexamethasone [Decadron] 4 mg PO Q12H 4 Days #8 tab levetiracetam [Keppra] 500 mg PO BID 30 Days #60 tab DS: Summary Hospital Course: Meningioma MRI indicative of meningioma. Neurosurgery was consulted. Status post craniotomy. Pathology revealed meningioma WHO grade 1. He received mannitol. The pt was continued on steroids and will complete a taper of Decadron upon discharge. He will continue Keppra BID. Neurology was consulted. He was placed on neuro checks. Echo with normal EF, grade 1 diastolic dysfunction. He worked with PT and OT. He will follow up with neurosurgery as an outpt. Neurosurgery cleared the patient for resumption of Eliquis upon discharge. He will resume his home hypertension regimen and will follow up with his PCP. - Time Spent with Patient Total time spent providing and/or coordinating discharge services: Greater than 30 minutes - Quality: VTE Deep Vein Thrombosis/Pulmonary Embolism Present on Admission: No Exam Vital signs: Vital Signs 09/10/18 16:00 09/10/18 20:00 09/11/18 00:00 Temperature 97.9 F 98.2 F 97.9 F Pulse Rate 85 79 79 Respiratory Rate 18 18 18 Blood Pressure 170/84 H 141/89 H 144/87 H Pulse Oximetry 99 96 98 09/11/18 04:00 09/11/18 08:00 09/11/18 12:00 Temperature 97.7 F 97.5 F L 98.2 F Pulse Rate 92 H 96 H 93 H Respiratory Rate 18 20 20 Blood Pressure 167/69 H 181/96 H 153/87 H Pulse Oximetry 97 98 100 Intake & Output 09/10/18 09/11/18 09/11/18 18:59 06:59 18:59 Intake Total 1065 / 1065 105 / 105 Output Total 3 / 3 Balance 1065 / 1065 105 / 105 -3 / -3 Intake: IV 105 / 105 105 / 105 Keppra Inj 500 MG In NS Inj 100 105 / 105 105 / 105 ML @ 400 mls/hr IV.SIG Q12H KETTY Rx#:[id number] Oral 960 / 960 Output: Urine 2 / 2 Stool Other: # Voids 3 Date of Last Bowel Movement 09/06/18 09/06/18 09/11/18 Narrative: GENERAL: NAD. HEAD: Normocephalic. Suleiman in place on head. NECK: Supple, trachea midline. No lymphadenopathy. EYES: No scleral icterus. No injection or drainage. CARDIOVASCULAR: Regular rate and rhythm without murmurs, gallops, or rubs. RESPIRATORY: Breath sounds equal bilaterally. No accessory muscle use. GASTROINTESTINAL: Abdomen soft, non-tender, nondistended. MUSCULOSKELETAL: No cyanosis, or edema. SKIN: Warm and dry. NEURO: Mild left hemiparesis Results Procedures completed during hospitalization: See hospital course Labs on day of discharge: Labs from last 24 hours 09/11/18 09/11/18 09/11/18 13:28 08:01 08:01 WBC 12.0 H RBC 4.09 L Hgb 12.6 L Hct 38.2 L MCV 93.5 MCH 30.8 MCHC 33.0 RDW 12.8 Plt Count 149 L MPV 9.4 Sodium 141 Potassium 3.8 Chloride 107 Carbon Dioxide 24.9 Anion Gap 9 BUN 23 H Creatinine 0.91 Estimated GFR Greater than 89 POC Glucose 143 H Random Glucose 133 H Calcium 9.2 Phosphorus 2.9 Magnesium 2.1 09/11/18 09/10/18 09/10/18 05:52 21:49 17:23 WBC RBC Hgb Hct MCV MCH MCHC RDW Plt Count MPV Sodium Potassium Chloride Carbon Dioxide Anion Gap BUN Creatinine Estimated GFR POC Glucose 142 H 83 81 Random Glucose Calcium Phosphorus Magnesium - Impressions ITS Impressions Carotid Doppler Study 09/05/18 00:00 CONCLUSION: 1. No hemodynamically significant stenosis in either carotid artery. 2. Nonvisualization right vertebral artery. Head MRI 09/05/18 00:00 CONCLUSION: 1. Right parietal extra-axial mass consistent with meningioma. 2. No acute intracranial abnormality. Chest X-Ray 09/05/18 00:10 CONCLUSION: No acute cardiopulmonary abnormality is identified. Head CT 09/07/18 00:00 CONCLUSION: 1. Satisfactory postop appearance. . Discharge Plan - Discharge Disposition Patient Disposition: /[facility] - Discharge Condition Condition: Stable - Discharge Order Discharge Orders: Discharge Order (Routine); Ordered 09/11/18 Ordered By: Talha Hernandez Neurosurgery Clear for Discharge (Routine); Ordered 09/11/18 Ordered By: Basia Burns - Discharge Details Anticipated Discharge Date: 09/11/18 - Physicians Team Primary Care Provider: [facility] Attending Provider: Talha Hernandez Other Providers: Jordin Rosenbaum MD ; Courtney Valdez ; Nito Cox MD, PhD ; Joey Lion MD
--- NOTE | 2018-09-11 15:46 | P.DCO ---
- Diagnosis (1) Disturbance, visual, subjective Status: Acute (2) Brain mass Status: Acute - Physical Therapy Order: Evaluate and treat, Improve ambulation, Strength and gait training - Home Health Nursing Order: Medical education, Signs/symptoms of disease process, Medication education-adverse effect, Wound care and dressing changes, Nursing assessment with vital signs - Case Management Consult No - Certification I have seen patient Sy Cannon on 09/11/18. My clinical findings support the need for the requested home health care services because: Limited mobility due to disease progression, Deconditioned with increased weakness, Limited ability to care for self I certify that my clinical findings support that this patient is homebound because: Post-op weakness
[2018-09-11 16:26] VITALS: BP 170/81; PULSE 84; TEMP 97.4; O2SAT 99
== END 2018-09-11 16:08 | disposition home health service (06) ==
LOC: NEPE 23:27 → NEDA 23:27 → NEPGCP 09-05 04:40 → N03 09-07 08:22 → N05 09-09 17:06
PROVIDERS: ADMIT Hospitalist; ATTEND Hospitalist